=== PATIENT | male | born 1960 ===

== ENCOUNTER 2016-07-02 04:40 | Inpatient (IN) | payer MEDICARE, BC ==
[2016-07-02 04:40] VITALS: BMI 31.0
[2016-07-02 05:07] LABS: BASO # 0.1 K/uL (0.0-0.2); BASO % 0.4 % (0.0-2.0); EOS # 0.4 K/uL (0.0-0.7); EOS % 2.6 % (0.0-4.0); HEMATOCRIT 43.1 % (35.0-51.0); LYMPH # 0.7 K/uL (1.0-4.3); LYMPH % 5.2 % (20.0-40.0); MEAN CELL VOLUME 77.3 fL (80.0-94.0); MEAN CORPUSCULAR HEMOGLOBIN 24.5 pg (27.0-31.0); MEAN CORPUSCULAR HGB CONC 31.7 g/dL (33.0-37.0); MEAN PLATELET VOLUME 8.5 fL (7.2-11.7); MONO % 6.7 % (0.0-10.0); PLATELET COUNT 187 K/uL (130-400); RED CELL DISTRIBUTION WIDTH 18.1 % (11.5-14.5); WHITE BLOOD COUNT 14.4 K/uL (4.8-10.8)
--- NOTE | 2016-07-02 05:17 | C.PDOC ---
History Of Present Illness Patient BIBA for SOB x 1-2 hours; on EMS arrival patient was in moderate distress, Pox in 80s, RR in 30s. He was given ASA 325mg, SL nitro x 3, Lasix IV , started on IV tridil in the field. He admits to some chest pressure as well. Patient denies cough, fever, abdominal pain, nausea/vomiting, palpitations. He has h/o DM, HTN, kidney transplant, formerly ESRD on HD. Time Seen by Provider: 07/02/16 04:49 Chief Complaint (Nursing): Respiratory Distress History Per: Patient, EMS History/Exam Limitations: clinical condition Onset/Duration Of Symptoms: Hrs Current Symptoms Are (Timing): Better Quality: Pressure Current Respiratory Medications: See Home Med List Severity: Moderate Associated Symptoms: denies: Fever, Chills Past Medical History Reviewed: Historical Data, Nursing Documentation, Vital Signs Vital Signs: Last Vital Signs Temp 97.8 F 07/04/16 15:00 Pulse 87 07/04/16 15:00 Resp 20 07/04/16 15:00 BP 154/86 H 07/04/16 15:00 Pulse Ox 96 07/04/16 15:00 - Medical History PMH: CAD, CHF, COPD, Diabetes, HTN, Hypercholesterolemia, Chronic Kidney Disease , Rheumatoid Arthritis Comment Only: End Stage Renal Disease (kidney transplant rt side) Surgical History: Appendectomy - [facility] Procedures CLOSURE SKIN & SUBCUTANEOUS NEC (03/13/14) DESTRUC-FOOT JT LES NEC (03/07/14) DETACHMENT AT RIGHT FOOT, PARTIAL 1ST RAY, OPEN APPROACH (03/08/15) EXCIS DEBRIDE OF WOUND, INFECT, OR BURN (03/17/14) EXCISION OF LEFT FOOT SKIN, EXTERNAL APPROACH (10/13/15) HEMODIALYSIS (02/28/13) INJECT ANTIBIOTIC (03/13/14) INSERTION OF INFUSION DEV INTO R BASILIC VEIN, PERC APPROACH (10/13/15) OCCUPATIONAL THERAPY (03/13/14) OTHER SKIN & SUBQ I D (01/02/13) PHYSICAL THERAPY NEC (03/13/14) REPLACE L FOOT SKIN W NONAUT SUB, FULL THICK, CARPENTER'S ASSISTANT (10/13/15) TOE AMPUTATION (03/07/14) Family History: States: No Known Family Hx - Social History Hx Tobacco Use: No Hx Alcohol Use: No Hx Substance Use: No - Immunization History Hx Tetanus Toxoid Vaccination: Yes Hx Influenza Vaccination: No Hx Pneumococcal Vaccination: No Review Of Systems Except As Marked, All Systems Reviewed And Found Negative. Constitutional: Negative for: Fever, Chills Cardiovascular: Positive for: Chest Pain, Edema. Negative for: Palpitations Respiratory: Positive for: Shortness of Breath, SOB with Excertion Gastrointestinal: Negative for: Nausea, Vomiting, Abdominal Pain Physical Exam - Physical Exam Appears: Non-toxic, In Acute Distress (in mild respiratory distress) Skin: Normal Color, Warm, Dry Eye(s): bilateral: Normal Inspection Oral Mucosa: Moist Neck: Normal, Normal ROM, Other ((+) JVD) Cardiovascular: Rhythm Regular (tachycardic ) Respiratory: Accessory Muscle Use (mild), Rales (at bases B/L), No Rhonchi, No Wheezing Gastrointestinal/Abdominal: Normal Exam, Bowel Sounds, Soft, No Tenderness Extremity: Normal ROM, Pedal Edema (+2 pitting edema B/L LEs), No Calf Tenderness Pulses: Left Dorsalis Pedis: Normal, Right Dorsalis Pedis: Normal Neurological/Psych: Oriented x3 ED Course And Treatment - Laboratory Results Result Diagrams: 07/04/16 06:19 07/04/16 06:19 ECG: Interpreted By Me, Viewed By Me (sinus tachycardia 133 bpm, left axis deviation, no acute ST/T wave changes) ECG Interpretation: Abnormal O2 Sat by Pulse Oximetry: 98 (RA) Pulse Ox Interpretation: Normal Progress Note: Blood work, CXR, EKG ordered and reviewed. Tridil continued. PMD Dr. Herrera no longer admits to [facility] - will admit to medical service Dr. Del Valle. Dr. Duggan is nephrology consult. 6:00am- Patient significantly improved, will discontinue tridil drip. Reevaluation Time: 05:25 Reassessment Condition: Improved (Patient respiratory status improved, he has no accessory muslce use. BP 102/60 - will titrate tridil down to 30mcg.) - Physician Consult Information Physician Contacted: Ashia Del Valle Outcome Of Conversation: Discussed patient with Dr. Del Valle, agrees with admission. Critical Care Time - Critical Care Note Total Time (in mins): 40 Documented critical care: time excludes all time spent performing seperately billable procedures. Disposition - Disposition Disposition: HOSPITALIZED Disposition Time: 05:58 Condition: FAIR - Clinical Impression Clinical Impression: Dyspnea, Congestive heart failure, Acute renal failure, Elevated troponin level Decision To Admit - Pt Status Changed To: Hospital Disposition Of: Inpatient - Admit Certification Admit to Inpatient:: After my assessment, the patient will require hospitalization for at least two midnights. This is because of the severity of symptoms shown, intensity of services needed, and/or the medical risk in this patient being treated as an outpatient. - InPatient: Physician Admission Certification: I certify that this patient requires 2 or more midnights of care for the following reason:: see notes - . Bed Request Type: Telemetry Admitting Physician: Ashia Del Valle Patient Diagnosis: Dyspnea, Congestive heart failure, Acute renal failure, Elevated troponin
[2016-07-02 05:19] LABS: POTASSIUM 4.2 mmol/L (3.6-5.2)
[2016-07-02] MEDS ORDERED: Nitroglycerin 50mg in D5W 50 MG/250 ML BOTTLE IV STA (05:20)
[2016-07-02 05:21] LABS: ALB/GLOB RATIO 0.8 (1.0-2.1); BILIRUBIN,TOTAL 0.5 mg/dL (0.2-1.3); CALCIUM 9.7 mg/dl (8.6-10.4); TOTAL PROTEIN 7.3 g/dL (6.3-8.3)
[2016-07-02 05:37] LABS: TROPONIN I 0.315 ng/mL (0.00-0.120)
[2016-07-02 05:50] LABS: EOSINOPHIL 2 % (0-4); NEUTROPHIL 83 % (50-75); TOTAL CELLS COUNTED 100
[2016-07-02] MEDS ORDERED: Oxycodone/Acetaminophen 5/325 mg Tab ONE (06:46)
[2016-07-02] MEDS: Oxycodone/Acetaminophen 5/325 mg Tab PO PRN ×2 (06:48→20:33)
[2016-07-02] MEDS ORDERED: CHOLECALCIFEROL 1.25 MG PO SCH (07:00)
[2016-07-02] MEDS: GlipiZIDE 10 mg SR Tab PO SCH ×2 (08:13→16:59)
[2016-07-02] MEDS: (Novolog) Insulin Aspart, Recombinant 100 u/ml 10 ml vial SC SCH ×5 (08:13→16:59)
[2016-07-02] MEDS ORDERED: GlipiZIDE 10 mg SR Tab PO SCH (10:00)
[2016-07-02] MEDS ORDERED: INSULIN ASPART 30 UNIT SQ SCH (10:00)
[2016-07-02] MEDS: Pantoprazole 40 mg EC Tab PO SCH (10:35)
[2016-07-02] MEDS ORDERED: Ergocalciferol 50,000 Intl Units Cap PO SCH (10:45)
--- NOTE | 2016-07-02 11:48 | RAD ---
PROCEDURE: CHEST RADIOGRAPH, 1 VIEW. Portable study 05:00 HISTORY: SOB COMPARISON: 10/15/2015. FINDINGS: LUNGS: Right lower lobe infiltrate/ air bronchograms a new finding compared to the prior study. PLEURA: No pneumothorax or pleural fluid seen. CARDIOVASCULAR: Cardiomegaly. No evidence of acute, significant cardiovascular disease. OSSEOUS STRUCTURES: No significant abnormalities. VISUALIZED UPPER ABDOMEN: Normal. OTHER FINDINGS: None. IMPRESSION: Right lower lobe infiltrate suspicious for acute pneumonia. Concordant results with the preliminary interpretation rendered by the emergency department physician procedure.
[2016-07-02] MEDS: Moxifloxacin IV 400mg/250ml NS 400 MG/250 ML BAG IVPB SCH (17:00)
--- NOTE | 2016-07-02 21:50 | CP.PCM.CON ---
History of Present Illness - History of Present Illness History of Present Illness: I was asked to see patient by Dr. Blake. Patient is a 56 year old male with PMH HTN, DM, renal transplant who presents with dyspnea. The patient states symptoms began one day prior to admission. He developed progressive dyspnea and orthopnea. The patient also developed chest pressure. He was admitted for [facility]. Pro BNP and troponin are elevated Review of Systems - Constitutional Constitutional: absent: As Per HPI, Anorexia, Chills, Daytime Sleepiness, Excessive Sweating, Fatigue, Fever, Frequent Falls, Headache, Increased Appetite , Lethargy, Malaise, Night Sweats, Snoring, Sleep Apnea, Weight Gain, Weight Loss, Weakness, Other - EENT Eyes: absent: As Per HPI, Blind Spots, Blurred Vision, Change in Vision, Decreased Night Vision, Diplopia, Discharge, Dry Eye, Exophthalmos, Floaters, Irritation, Itchy Eyes, Loss of Peripheral Vision, Pain, Photophobia, Requires Corrective Lenses, Sees Flashes, Spots in Vision, Tunnel Vision, Other Visual Disturbances, Loss of Vision, Other Ears: absent: As Per HPI, Decreased Hearing, Ear Discharge, Ear Pain, Tinnitus, Abnormal Hearing, Disequilibrium, Dizziness, Other Nose/Mouth/Throat: absent: As Per HPI, Epistaxis, Nasal Congestion, Nasal Discharge, Nasal Obstruction, Nasal Trauma, Nose Pain, Post Nasal Drip, Sinus Pain, Sinus Pressure, Bleeding Gums, Change in Voice, Dental Pain, Dry Mouth, Dysphagia, Halitosis, Hoarsness, Lip Swelling, Mouth Lesions, Mouth Pain, Odynophagia, Sore Throat, Throat Swelling, Tongue Swelling, Facial Pain, Neck Pain, Neck Mass, Other - Cardiovascular Cardiovascular: Chest Pain, Dyspnea - Respiratory Respiratory: Dyspnea - Gastrointestinal Gastrointestinal: absent: As Per HPI, Abdominal Pain, Belching, Bloating, Change in Bowel Habits, Change in Stool Character, Coffee Ground Emesis, Constipation, Cramping, Diarrhea, Dyspepsia, Dysphagia, Early Satiety, Excessive Flatus, Fecal Incontinence, Heartburn, Hematemesis, Hematochezia, Loose Stools, Melena, Nausea, Odynophagia, Temesmus, Vomiting, Other - Genitourinary Genitourinary: absent: As Per HPI, Change in Urinary Stream, Difficulty Urinating, Dysuria, Flank Pain, Hematuria, Pyuria, Nocturia, Urinary Incontinence, Urinary Frequency, Urinary Hesitance, Urinary Urgency, Voiding Freq/Small Amts, Freq UTI, Hx Renal/Bladder Calculi, Hx /Renal Surgery, Bladder Distension, Other - Musculoskeletal Musculoskeletal: absent: As Per HPI, Abnormal Gait, Arthralgias, Atrophy, Back Pain, Deformity, Joint Swelling, Limited Range of Motion, Loss of Height, Muscle Cramps, Muscle Weakness, Myalgias, Neck Pain, Numbness, Radiating Pain into Limb, Stiffness, Tingling, Other - Integumentary Integumentary: absent: As Per HPI, Acne, Alopecia, Bleeding Lesions, Change in Hair, Change in Nails, Change in Pigmentation, Changing Lesions, Dry Skin, Erythema, Furuncle, Hirsutism, Lesions, New Lesions, Non-Healing Lesions, Photosensitivity, Pruritus, Rash, Skin Pain, Skin Ulcer, Sores, Striae, Swelling , Unusual Bruising, Wounds, Jaundice, Other - Neurological Neurological: absent: As Per HPI, Abnormal Gait, Abnormal Hearing, Abnormal Movements, Abnormal Speech, Behavioral Changes, Burning Sensations, Confusion, Convulsions, Disequilibrium, Dizziness, Numbness, Focal Weakness, Frequent Falls , Headaches, Lack of Coordination, Loss of Vision, Memory Loss, Paresthesias, Radicular Pain, Restless Legs, Sensory Deficit, Syncope, Tingling, Tremor, Vertigo, Weakness, Other Visual Disturbances, Other - Psychiatric Psychiatric: absent: As Per HPI, Abnormal Sleep Pattern, Anhedonia, Anxiety, Auditory Hallucinations, Behavioral Changes, Change in Appetite, Change in Libido, Confusion, Depression, Difficulty Concentrating, Hallucinations, Homicidal Ideation, Hopelessness, Irritability, Memory Loss, Mood Swings, Panic Attacks, Paranoia, Suicidal Ideation, Visual Hallucinations, Tactile Hallucinations, Other - Endocrine Endocrine: absent: As Per HPI, Change in Body Appearance, Change in Libido, Cold Intolorance, Deepening of Voice, Excessive Sweating, Fatigue, Flushing, Heat Intolorance, Increase in Ring/Shoe/Hat Size, Palpitations, Polydipsia, Polyphagia, Polyuria, Other - Hematologic/Lymphatic Hematologic: absent: As Per HPI, Easy Bleeding, Easy Bruising, Lymphadenopathy, Other Past Patient History - Infectious Disease Hx of Infectious Diseases: None - Past Medical History & Family History Past Medical History?: Yes - Past Social History Smoking Status: Former Smoker - CARDIAC Hx Congestive Heart Failure: Yes Hx Heart Murmur: Yes Hx Hypercholesterolemia: Yes Hx Hypertension: Yes - PULMONARY Hx Chronic Obstructive Pulmonary Disease (COPD): Yes - NEUROLOGICAL Hx Neurological Disorder: No - HEENT Hx HEENT Problems: No - RENAL Hx Chronic Kidney Disease: Yes Hx Dialysis: Yes Type of Dialysis Access: lt avf Other/Comment: kidney transplant 3 years ago - ENDOCRINE/METABOLIC Hx Diabetes Mellitus Type 2: Yes - HEMATOLOGICAL/ONCOLOGICAL Hx Blood Disorders: No - INTEGUMENTARY Hx Dermatological Problems: Yes Other/Comment: RT FOOT DIABETIC FOOT ULCER - MUSCULOSKELETAL/RHEUMATOLOGICAL Hx Falls: No Hx Rheumatoid Arthritis: Yes - GASTROINTESTINAL Hx Gastrointestinal Disorders: Yes Other/Comment: CHRONIC LOOSE STOOLS, HX COLON RESECTION AND ANASTAMOSIS, HX COLOSTOMY\. 65% of colon lost, - GENITOURINARY/GYNECOLOGICAL Hx Genitourinary Disorders: No - PSYCHIATRIC Hx Substance Use: No - SURGICAL HISTORY Hx Appendectomy: Yes - ANESTHESIA Hx Anesthesia: Yes Hx Anesthesia Reactions: No Hx Malignant Hyperthermia: No Has any member of the family had a problem w/ anesthesia?: No Meds Allergies/Adverse Reactions: Allergies Allergy/AdvReac Type Severity Reaction Status Date / Time morphine Allergy Intermediate RASH Verified 07/02/16 04:57 sweet potato Allergy Verified 07/02/16 04:57 Carlso greens Allergy ANAPHYLAXIS Uncoded 07/02/16 04:57 - Medications Medications: Current Medications Amlodipine Besylate (Norvasc) 5 mg PO HS [facility] Aspirin (Ecotrin) 81 mg PO DAILY [facility] Last Admin: 07/02/16 10:34 Dose: 81 mg Cinacalcet (Sensipar) 30 mg PO DAILY [facility] Last Admin: 07/02/16 10:35 Dose: 30 mg Cyclobenzaprine HCl (Flexeril) 5 mg PO HS [facility] Ergocalciferol (Drisdol 50,000 Intl Units Cap) 1 cap PO Q7D [facility] Last Admin: 07/02/16 12:41 Dose: 1 cap Furosemide (Lasix) 40 mg PO BID [facility] Last Admin: 07/02/16 17:00 Dose: 40 mg Gabapentin (Neurontin) 100 mg PO TID [facility] Last Admin: 07/02/16 17:00 Dose: 100 mg Glipizide (Glucotrol Xl) 10 mg PO BIDAC [facility] Last Admin: 07/02/16 16:59 Dose: 10 mg Moxifloxacin HCl (Avelox Iv 400mg/250ml Ns) 400 mg in 250 mls @ 167 mls/hr IVPB Q24H [facility] Last Admin: 07/02/16 17:00 Dose: 167 mls/hr Insulin Aspart (Novolog) 0 unit SC ACHS [facility] PRN Reason: Protocol Last Admin: 07/02/16 16:58 Dose: 1 unit Insulin Aspart (Novolog) 30 unit SC AC [facility] Last Admin: 07/02/16 16:59 Dose: 30 unit Insulin Glargine (Lantus) 55 unit SC HS [facility] Mycophenolate Mofetil (Cellcept) 500 mg PO BID [facility] Last Admin: 07/02/16 17:00 Dose: 500 mg Oxycodone/Acetaminophen (Percocet 5/325 Mg Tab) 1 tab PO Q6 PRN PRN Reason: Pain, severe (8-10) Stop: 07/05/16 06:47 Last Admin: 07/02/16 20:33 Dose: 1 tab Pantoprazole Sodium (Protonix Ec Tab) 40 mg PO DAILY [facility] Last Admin: 07/02/16 10:35 Dose: 40 mg Prednisone (Prednisone Tab) 5 mg PO DAILY [facility] Last Admin: 07/02/16 10:35 Dose: 5 mg Rosuvastatin Calcium (Crestor) 10 mg PO HS [facility] Sitagliptin Phosphate (Januvia) 50 mg PO DAILY [facility] Last Admin: 07/02/16 10:34 Dose: 50 mg Tacrolimus (Prograf Cap) 1 mg PO Q12 [facility] Last Admin: 07/02/16 11:50 Dose: 1 mg Physical Exam - Constitutional Appears: Non-toxic - Head Exam Head Exam: NORMAL INSPECTION - Eye Exam Eye Exam: Normal appearance - ENT Exam ENT Exam: Mucous Membranes Moist - Neck Exam Neck exam: Positive for: Full Rom - Respiratory Exam Respiratory Exam: Decreased Breath Sounds - Cardiovascular Exam Cardiovascular Exam: REGULAR RHYTHM, Systolic Murmur - GI/Abdominal Exam GI & Abdominal Exam: Normal Bowel Sounds - Rectal Exam Rectal Exam: Deferred - Extremities Exam Extremities exam: Positive for: pedal edema - Back Exam Back exam: NORMAL INSPECTION - Neurological Exam Neurological exam: Alert, Oriented x3 - Psychiatric Exam Psychiatric exam: Normal Affect - Skin Skin Exam: Normal Color Results - Vital Signs Recent Vital Signs: Last Vital Signs Temp 98.1 F 07/02/16 15:32 Pulse 93 H 07/02/16 15:32 Resp 20 07/02/16 15:32 BP 133/82 07/02/16 20:33 Pulse Ox 97 07/02/16 15:32 - Labs Result Diagrams: 07/02/16 05:04 07/02/16 05:04 Labs: Laboratory Results - last 24 hr 07/02/16 07/02/16 07/02/16 07:04 11:57 13:35 POC Glucose (mg/dL) 246 H 264 H Total Creatine Kinase 65 CK-MB (Mass) 2.36 Troponin I, Quant 0.3600 H* 07/02/16 16:20 POC Glucose (mg/dL) 192 H Total Creatine Kinase CK-MB (Mass) Troponin I, Quant - EKG Data EKG Interpreted by: Myself EKG shows normal: Sinus rhythm Assessment & Plan (1) NSTEMI (non-ST elevated myocardial infarction) Assessment and Plan: symptoms may be due to underlying CAD. Recommend echocardiogram. recommend cardiac catheterization to assess for CAD. will need evalaution by renal givne trasnplanted kidney and renal insufficiency. Status: Acute (2) Congestive heart failure Assessment and Plan: unclear etiology, but may be due to valvular heart disease. recommend echocardiogram Status: Acute (3) Aortic stenosis Assessment and Plan: will assess with echocardiogram Status: Chronic Priority: Medium (4) Hypertension Assessment and Plan: blood pressure control Status: Chronic Priority: Medium
[2016-07-02] MEDS: (Lantus) Insulin Glargine, Recombinant SC SCH (22:39)
--- NOTE | 2016-07-03 07:19 | HP ---
The patient is a 56-year-old male, history of renal transplant, hypertension, valvular heart disease. Admitted to the hospital with a chief complaint of weakness, fatigue, tiredness. The patient came to the ER, found to have pulmonary edema, elevated blood pressure. The patient increasing shor tness of breath night. Symptoms suggesting sleep apnea when described as being short of breath when he lies flat. The patient is obese. PHYSICAL EXAMINATION: GENERAL: The patient is awake, alert, oriented. VITAL SIGNS: Temperature 98, pulse 90. HEENT: Within normal limits. CHEST: Decreased air entry. HEART: Tachycardic. ABDOMEN: Soft. EXTREMITIES: No edema. The patient suffers from congestive heart failure, hypertension, renal insufficiency status post leonard l transplant, rule out sleep apnea, morbid obesity. The patient will get bedrest, diuresis, cardiolo gy evaluation. Ashia Will MD cc: [id number] TT: 07/02/2016 16:12:30 en
[2016-07-03] MEDS: GlipiZIDE 10 mg SR Tab PO SCH ×2 (08:30→17:59)
[2016-07-03] MEDS: (Novolog) Insulin Aspart, Recombinant 100 u/ml 10 ml vial SC SCH ×7 (08:51→22:09)
[2016-07-03] MEDS: Pantoprazole 40 mg EC Tab PO SCH (10:02)
--- NOTE | 2016-07-03 11:39 | CP.PCM.PN ---
Subjective - Date & Time of Evaluation Date of Evaluation: 07/03/16 Time of Evaluation: 07:35 - Subjective Subjective: Medicine Note- Dr. Blake's service Patient was seen and examined at bedside. Patient reports he is feeling a lot better than when he first came in. He denies any dyspnea, chest pain. Patient understands he may need a cardiac cath, but due to his kidney transplant and elevated BUN, we will need clearance from nephrology. No events overnight, per nursing. Objective - Vital Signs/Intake and Output Vital Signs (last 24 hours): Temp Pulse Resp BP Pulse Ox 97.6 F 87 18 144/84 98 07/03/16 08:37 07/03/16 09:57 07/03/16 08:37 07/03/16 10:00 07/03/16 08:37 Intake and Output: 07/03/16 07/03/16 06:59 18:59 Intake Total 590 Balance 590 - Medications Medications: Current Medications Amlodipine Besylate (Norvasc) 5 mg PO HS [facility] Last Admin: 07/02/16 22:39 Dose: 5 mg Aspirin (Ecotrin) 81 mg PO DAILY [facility] Last Admin: 07/03/16 10:00 Dose: 81 mg Cinacalcet (Sensipar) 30 mg PO DAILY [facility] Last Admin: 07/03/16 09:59 Dose: 30 mg Cyclobenzaprine HCl (Flexeril) 5 mg PO HS [facility] Last Admin: 07/02/16 22:39 Dose: 5 mg Ergocalciferol (Drisdol 50,000 Intl Units Cap) 1 cap PO Q7D [facility] Last Admin: 07/02/16 12:41 Dose: 1 cap Furosemide (Lasix) 40 mg PO BID [facility] Last Admin: 07/03/16 10:00 Dose: 40 mg Gabapentin (Neurontin) 100 mg PO TID [facility] Last Admin: 07/03/16 10:00 Dose: 100 mg Glipizide (Glucotrol Xl) 10 mg PO BIDAC [facility] Last Admin: 07/03/16 08:30 Dose: Not Given Moxifloxacin HCl (Avelox Iv 400mg/250ml Ns) 400 mg in 250 mls @ 167 mls/hr IVPB Q24H [facility] Last Admin: 07/02/16 17:00 Dose: 167 mls/hr Insulin Aspart (Novolog) 0 unit SC ACHS [facility] PRN Reason: Protocol Last Admin: 07/03/16 08:53 Dose: 3 unit Insulin Aspart (Novolog) 30 unit SC AC [facility] Last Admin: 07/03/16 08:51 Dose: 30 unit Insulin Glargine (Lantus) 55 unit SC HS [facility] Last Admin: 07/02/16 22:39 Dose: 55 units Mycophenolate Mofetil (Cellcept) 500 mg PO BID [facility] Last Admin: 07/03/16 09:59 Dose: 500 mg Oxycodone/Acetaminophen (Percocet 5/325 Mg Tab) 1 tab PO Q6 PRN PRN Reason: Pain, severe (8-10) Stop: 07/05/16 06:47 Last Admin: 07/02/16 20:33 Dose: 1 tab Pantoprazole Sodium (Protonix Ec Tab) 40 mg PO DAILY [facility] Last Admin: 07/03/16 10:02 Dose: 40 mg Prednisone (Prednisone Tab) 5 mg PO DAILY [facility] Last Admin: 07/03/16 10:00 Dose: 5 mg Rosuvastatin Calcium (Crestor) 10 mg PO [facility] Last Admin: 07/02/16 22:39 Dose: 10 mg Sitagliptin Phosphate (Januvia) 50 mg PO DAILY [facility] Last Admin: 07/03/16 10:00 Dose: 50 mg Tacrolimus (Prograf Cap) 1 mg PO Q12 [facility] Last Admin: 07/03/16 09:59 Dose: 1 mg - Labs Labs: PT 11.3 SECONDS (9.7-12.2) 07/02/16 05:04 INR 1.0 07/02/16 05:04 APTT 30 SECONDS (21-34) 07/02/16 05:04 - Constitutional Appears: Non-toxic, No Acute Distress - Head Exam Head Exam: ATRAUMATIC, NORMAL INSPECTION, NORMOCEPHALIC - Eye Exam Pupil Exam: NORMAL ACCOMODATION - ENT Exam ENT Exam: Mucous Membranes Moist - Respiratory Exam Respiratory Exam: Clear to Ausculation Bilateral, NORMAL BREATHING PATTERN. absent: Prolonged Expiratory Phase, Rales, Rhonchi, Wheezes - Cardiovascular Exam Cardiovascular Exam: REGULAR RHYTHM, Murmur - GI/Abdominal Exam GI & Abdominal Exam: Soft, Normal Bowel Sounds. absent: Tenderness, Diminished Bowel Sounds, Hernia, Hypoactive Bowel Sounds - Neurological Exam Neurological Exam: Alert, Awake, Oriented x3 - Psychiatric Exam Psychiatric exam: Normal Affect, Normal Mood - Skin Skin Exam: Dry, Intact, Normal Color, Warm Assessment and Plan - Assessment and Plan (Free Text) Assessment: NSTEMI Consult Cardiology- Dr. Lassiter- recommends cardiac cath, however, will need approval from nephrology before proceeding. NPO after lunch today ROMIs positive- 0.3150, 0.3600, 0.2690 Asa 81mg PO Daily Continue Lasix 40mg PO BID f/u 2D Echo Diabetes Continue Lantus 55U SC HS Continue Novolog 30U SC AC Continue RISS Asa 81mg PO Daily Glipizide 10mg PO BIDAC Januvia 50mg PO Daily Neurontin 100mg PO TID Htn Continue Norvasc 5mg PO HS Hx of Renal transplant Consult- Nephro- Dr. Duggan Continue Prednisone 5mg PO Daily Tacrolimus 1mg Q12h Cellcept 500mg PO BID Sensipar 30mg PO Daily Prophylactic Measure Protonix 40mg PO Daily SCDs contraindicated due to bilateral LE edema Contraindicated for VTE therapy- pre op
--- NOTE | 2016-07-03 12:42 | CARD ---
APPROVED REPORT EXAM: Two-dimensional and M-mode echocardiogram with Doppler and color Doppler. Other Information Quality : GoodRhythm : INDICATION Dyspnea Chest Pain RENAL TRANSPLANT,ELEVATED TROPONIN RISK FACTORS Hypertension Obesity Diabetes 2D DIMENSIONS LVOT Diameter2.2 (1.8-2.4cm) M-Mode DIMENSIONS RVDd2.26 (2.1-3.2cm)Left Atrium (MM)5.27 (2.5-4.0cm) IVSd1.48 (0.7-1.1cm)Aortic Root3.36 (2.2-3.7cm) LVDd5.82 (4.0-5.6cm)Aortic Cusp Exc.1.13 (1.5-2.0cm) PWd1.48 (0.7-1.1cm)FS (%) 27 % LVDs4.26 (2.0-3.8cm)LVEF (%)52 (>50%) Aortic Valve AoV Peak Kfxerhll994.1cm/sAoV VTI83.4cmAO Peak GR.61mmHg LVOT Peak Qdrjpoxq14.6cm/sLVOT VTI17.50cmAO Mean GR.39mmHg TERRI (VMAX)0.66ra6BSV (VTI)0.65ul9CM P 1/2 Etit312yl Mitral Valve E/A ratio0.0 TDI E/Lateral E'0.0E/Medial E'0.0 Tricuspid Valve TR Peak Uebsdwrp146cd/sTR Peak Gr.[id number] LEFT VENTRICLE The Left Ventricle is moderately dilated. There is mild to moderate concentric left ventricular hypertrophy. The systolic function is mildly impaired. There is normal LV segmental wall motion. RIGHT VENTRICLE The right ventricle is normal size. The right ventricular systolic function is normal. ATRIA The left atrium is moderately dilated. The right atrium size is normal. AORTIC VALVE The aortic valve is moderately to severely sclerotic. There is mild to moderate aortic regurgitation. There is severe valvular aortic stenosis. Calculated aortic valve area is 0.8 cm2 with maximum pressure gradient of 61 mmHg and mean pressure gradient of 38 mmHg. MITRAL VALVE The mitral valve is normal in structure. Mitral annular calcification is mild. Mitral regurgitation is mild. TRICUSPID VALVE The tricuspid valve is normal in structure. There is trace to mild tricuspid regurgitation. PULMONIC VALVE The pulmonary valve is normal in structure. GREAT VESSELS The aortic root is normal in size. The IVC is normal in size and collapses >50% with inspiration. PERICARDIAL EFFUSION There is no pericardial effusion. <Conclusion> There is severe calcific valvular aortic stenosis. Calculated aortic valve area is - 0.8 cm2 with maximum pressure gradient of 61 mmHg and mean pressure gradient of 38 mmHg. There is mild to moderate aortic regurgitation. There is mild to moderate concentric left ventricular hypertrophy. The systolic function is mildly impaired. The right ventricular systolic function is normal. Mitral regurgitation is mild. No pericardial effusion.
--- NOTE | 2016-07-03 12:46 | CP.PCM.CON ---
History of Present Illness - History of Present Illness History of Present Illness: Patient is a 56 year old male with PMH HTN, DM, renal transplant who presents with dyspnea. The patient states symptoms began one day prior to admission. He developed progressive dyspnea and orthopnea. The patient also developed chest pressure. He was admitted for [facility]. Pro BNP and troponin are elevated Renal Tranplant was donor; suffered delayed graft function, but renal function stable recently. No acute rejections Treated for mild CHF in ED. PMH: DONOR RENAL TRANSPLANT CKD 3 HTN COPD SEC HPT PVD- BILATERALLY, 1 TOE AMPUTATION DL DM 2 ISCHEMIC BOWEL-POST PARTIAL COLECTOMY TNIs ELEVATED, MILD CHF IN ED- TREATED PLANS FOR CARDIAC CATH NOTED CANNOT HYDRATE DUE TO CHF. LIKELY RELATED TO AORTIC STENOSIS NEED TO MONITOR RENAL FUNCTION CLOSELY Past Patient History - Infectious Disease Hx of Infectious Diseases: None - Past Medical History & Family History Past Medical History?: Yes - Past Social History Smoking Status: Former Smoker - CARDIAC Hx Congestive Heart Failure: Yes Hx Heart Murmur: Yes Hx Hypercholesterolemia: Yes Hx Hypertension: Yes - PULMONARY Hx Chronic Obstructive Pulmonary Disease (COPD): Yes - NEUROLOGICAL Hx Neurological Disorder: No - HEENT Hx HEENT Problems: No - RENAL Hx Chronic Kidney Disease: Yes Hx Dialysis: Yes Type of Dialysis Access: lt avf Other/Comment: kidney transplant 3 years ago - ENDOCRINE/METABOLIC Hx Diabetes Mellitus Type 2: Yes - HEMATOLOGICAL/ONCOLOGICAL Hx Blood Disorders: No - INTEGUMENTARY Hx Dermatological Problems: Yes Other/Comment: RT FOOT DIABETIC FOOT ULCER - MUSCULOSKELETAL/RHEUMATOLOGICAL Hx Falls: No Hx Rheumatoid Arthritis: Yes - GASTROINTESTINAL Hx Gastrointestinal Disorders: Yes Other/Comment: CHRONIC LOOSE STOOLS, HX COLON RESECTION AND ANASTAMOSIS, HX COLOSTOMY\. 65% of colon lost, - GENITOURINARY/GYNECOLOGICAL Hx Genitourinary Disorders: No - PSYCHIATRIC Hx Substance Use: No - SURGICAL HISTORY Hx Appendectomy: Yes - ANESTHESIA Hx Anesthesia: Yes Hx Anesthesia Reactions: No Hx Malignant Hyperthermia: No Has any member of the family had a problem w/ anesthesia?: No Meds Allergies/Adverse Reactions: Allergies Allergy/AdvReac Type Severity Reaction Status Date / Time morphine Allergy Intermediate RASH Verified 07/02/16 04:57 sweet potato Allergy Verified 07/02/16 04:57 Carlos greens Allergy ANAPHYLAXIS Uncoded 07/02/16 04:57 - Medications Medications: Current Medications Amlodipine Besylate (Norvasc) 5 mg PO [facility] Last Admin: 07/02/16 22:39 Dose: 5 mg Aspirin (Ecotrin) 81 mg PO DAILY [facility] Last Admin: 07/03/16 10:00 Dose: 81 mg Cinacalcet (Sensipar) 30 mg PO DAILY [facility] Last Admin: 07/03/16 09:59 Dose: 30 mg Cyclobenzaprine HCl (Flexeril) 5 mg PO [facility] Last Admin: 07/02/16 22:39 Dose: 5 mg Ergocalciferol (Drisdol 50,000 Intl Units Cap) 1 cap PO Q7D [facility] Last Admin: 07/02/16 12:41 Dose: 1 cap Furosemide (Lasix) 40 mg PO BID [facility] Last Admin: 07/03/16 10:00 Dose: 40 mg Gabapentin (Neurontin) 100 mg PO TID [facility] Last Admin: 07/03/16 10:00 Dose: 100 mg Glipizide (Glucotrol Xl) 10 mg PO BIDAC [facility] Last Admin: 07/03/16 08:30 Dose: Not Given Moxifloxacin HCl (Avelox Iv 400mg/250ml Ns) 400 mg in 250 mls @ 167 mls/hr IVPB Q24H [facility] Last Admin: 07/02/16 17:00 Dose: 167 mls/hr Insulin Aspart (Novolog) 0 unit SC [facility] PRN Reason: Protocol Last Admin: 07/03/16 08:53 Dose: 3 unit Insulin Aspart (Novolog) 30 unit SC AC [facility] Last Admin: 07/03/16 08:51 Dose: 30 unit Insulin Glargine (Lantus) 55 unit SC [facility] Last Admin: 07/02/16 22:39 Dose: 55 units Mycophenolate Mofetil (Cellcept) 500 mg PO BID [facility] Last Admin: 07/03/16 09:59 Dose: 500 mg Oxycodone/Acetaminophen (Percocet 5/325 Mg Tab) 1 tab PO Q6 PRN PRN Reason: Pain, severe (8-10) Stop: 07/05/16 06:47 Last Admin: 07/02/16 20:33 Dose: 1 tab Pantoprazole Sodium (Protonix Ec Tab) 40 mg PO DAILY [facility] Last Admin: 07/03/16 10:02 Dose: 40 mg Prednisone (Prednisone Tab) 5 mg PO DAILY [facility] Last Admin: 07/03/16 10:00 Dose: 5 mg Rosuvastatin Calcium (Crestor) 10 mg PO HS [facility] Last Admin: 07/02/16 22:39 Dose: 10 mg Sitagliptin Phosphate (Januvia) 50 mg PO DAILY [facility] Last Admin: 07/03/16 10:00 Dose: 50 mg Tacrolimus (Prograf Cap) 1 mg PO Q12 [facility] Last Admin: 07/03/16 09:59 Dose: 1 mg Results - Vital Signs Recent Vital Signs: Last Vital Signs Temp 97.6 F 07/03/16 08:37 Pulse 87 07/03/16 09:57 Resp 18 07/03/16 08:37 BP 144/84 07/03/16 10:00 Pulse Ox 98 07/03/16 08:37 - Labs Result Diagrams: 07/02/16 05:04 07/02/16 05:04 Labs: Laboratory Results - last 24 hr 07/02/16 07/02/16 07/02/16 13:35 16:20 22:06 POC Glucose (mg/dL) 192 H 233 H Total Creatine Kinase 65 CK-MB (Mass) 2.36 Troponin I, Quant 0.3600 H* 07/02/16 07/03/16 07/03/16 22:14 06:16 12:33 POC Glucose (mg/dL) 291 H 205 H Total Creatine Kinase 72 CK-MB (Mass) 2.65 Troponin I, Quant 0.2690 H*
--- NOTE | 2016-07-03 12:54 | CP.PCM.CON ---
History of Present Illness - History of Present Illness History of Present Illness: Patient is a 56 year old male with PMH HTN, DM, renal transplant who presents with dyspnea. The patient states symptoms began one day prior to admission. He developed progressive dyspnea and orthopnea. The patient also developed chest pressure. He was admitted for [facility]. Pro BNP and troponin are elevated Renal Tranplant was donor; suffered delayed graft function, but renal function stable recently. No acute rejections Treated for mild CHF in ED. PMH: DONOR RENAL TRANSPLANT CKD 3 HTN COPD SEC HPT PVD- BILATERALLY, 1 TOE AMPUTATION DL DM 2 ISCHEMIC BOWEL-POST PARTIAL COLECTOMY TNIs ELEVATED, MILD CHF IN ED- TREATED PLANS FOR CARDIAC CATH NOTED CANNOT HYDRATE DUE TO CHF. LIKELY RELATED TO AORTIC STENOSIS NEED TO MONITOR RENAL FUNCTION CLOSELY PSH: RENAL TP TOE AMPUTATION AVF PARTIAL COLECTOMY SOCIAL: FORMER SMOKER FORMER COCAINE USE NO ETOH FH:NON CONTRIBUATORY Review of Systems - Review of Systems All systems: reviewed and no additional remarkable complaints except - Cardiovascular Cardiovascular: Dyspnea on Exertion, Paroxysmal Nocturnal Dyspnea, Pedal Edema - Respiratory Respiratory: Dyspnea on Exertion Past Patient History - Infectious Disease Hx of Infectious Diseases: None - Past Medical History & Family History Past Medical History?: Yes - Past Social History Smoking Status: Former Smoker Alcohol: None Drugs: Cocaine Home Situation {Lives}: With Family - CARDIAC Hx Congestive Heart Failure: Yes Hx Heart Murmur: Yes Hx Hypercholesterolemia: Yes Hx Hypertension: Yes - PULMONARY Hx Chronic Obstructive Pulmonary Disease (COPD): Yes - NEUROLOGICAL Hx Neurological Disorder: No - HEENT Hx HEENT Problems: No - RENAL Hx Chronic Kidney Disease: Yes Hx Dialysis: Yes Type of Dialysis Access: lt avf Other/Comment: kidney transplant 3 years ago - ENDOCRINE/METABOLIC Hx Diabetes Mellitus Type 2: Yes - HEMATOLOGICAL/ONCOLOGICAL Hx Blood Disorders: No - INTEGUMENTARY Hx Dermatological Problems: Yes Other/Comment: RT FOOT DIABETIC FOOT ULCER - MUSCULOSKELETAL/RHEUMATOLOGICAL Hx Falls: No Hx Rheumatoid Arthritis: Yes - GASTROINTESTINAL Hx Gastrointestinal Disorders: Yes Other/Comment: CHRONIC LOOSE STOOLS, HX COLON RESECTION AND ANASTAMOSIS, HX COLOSTOMY\. 65% of colon lost, - GENITOURINARY/GYNECOLOGICAL Hx Genitourinary Disorders: No - PSYCHIATRIC Hx Substance Use: No - SURGICAL HISTORY Hx Appendectomy: Yes - ANESTHESIA Hx Anesthesia: Yes Hx Anesthesia Reactions: No Hx Malignant Hyperthermia: No Has any member of the family had a problem w/ anesthesia?: No Meds Allergies/Adverse Reactions: Allergies Allergy/AdvReac Type Severity Reaction Status Date / Time morphine Allergy Intermediate RASH Verified 07/02/16 04:57 sweet potato Allergy Verified 07/02/16 04:57 Carlos greens Allergy ANAPHYLAXIS Uncoded 07/02/16 04:57 - Medications Medications: Current Medications Amlodipine Besylate (Norvasc) 5 mg PO HS [facility] Last Admin: 07/02/16 22:39 Dose: 5 mg Aspirin (Ecotrin) 81 mg PO DAILY [facility] Last Admin: 07/03/16 10:00 Dose: 81 mg Cinacalcet (Sensipar) 30 mg PO DAILY [facility] Last Admin: 07/03/16 09:59 Dose: 30 mg Cyclobenzaprine HCl (Flexeril) 5 mg PO HS [facility] Last Admin: 07/02/16 22:39 Dose: 5 mg Ergocalciferol (Drisdol 50,000 Intl Units Cap) 1 cap PO Q7D [facility] Last Admin: 07/02/16 12:41 Dose: 1 cap Furosemide (Lasix) 40 mg PO BID [facility] Last Admin: 07/03/16 10:00 Dose: 40 mg Gabapentin (Neurontin) 100 mg PO TID [facility] Last Admin: 07/03/16 10:00 Dose: 100 mg Glipizide (Glucotrol Xl) 10 mg PO BIDAC [facility] Last Admin: 07/03/16 08:30 Dose: Not Given Moxifloxacin HCl (Avelox Iv 400mg/250ml Ns) 400 mg in 250 mls @ 167 mls/hr IVPB Q24H [facility] Last Admin: 07/02/16 17:00 Dose: 167 mls/hr Insulin Aspart (Novolog) 0 unit SC ACHS [facility] PRN Reason: Protocol Last Admin: 07/03/16 08:53 Dose: 3 unit Insulin Aspart (Novolog) 30 unit SC AC [facility] Last Admin: 07/03/16 08:51 Dose: 30 unit Insulin Glargine (Lantus) 55 unit SC HS [facility] Last Admin: 07/02/16 22:39 Dose: 55 units Mycophenolate Mofetil (Cellcept) 500 mg PO BID [facility] Last Admin: 07/03/16 09:59 Dose: 500 mg Oxycodone/Acetaminophen (Percocet 5/325 Mg Tab) 1 tab PO Q6 PRN PRN Reason: Pain, severe (8-10) Stop: 07/05/16 06:47 Last Admin: 07/02/16 20:33 Dose: 1 tab Pantoprazole Sodium (Protonix Ec Tab) 40 mg PO DAILY [facility] Last Admin: 07/03/16 10:02 Dose: 40 mg Prednisone (Prednisone Tab) 5 mg PO DAILY [facility] Last Admin: 07/03/16 10:00 Dose: 5 mg Rosuvastatin Calcium (Crestor) 10 mg PO HS [facility] Last Admin: 07/02/16 22:39 Dose: 10 mg Sitagliptin Phosphate (Januvia) 50 mg PO DAILY [facility] Last Admin: 07/03/16 10:00 Dose: 50 mg Tacrolimus (Prograf Cap) 1 mg PO Q12 [facility] Last Admin: 07/03/16 09:59 Dose: 1 mg Physical Exam - Constitutional Appears: Non-toxic, No Acute Distress - Head Exam Head Exam: ATRAUMATIC, NORMAL INSPECTION - Eye Exam Eye Exam: EOMI, Normal appearance - Neck Exam Neck exam: Positive for: Normal Inspection. Negative for: Tenderness - Respiratory Exam Respiratory Exam: Rales, NORMAL BREATHING PATTERN - Cardiovascular Exam Cardiovascular Exam: REGULAR RHYTHM, +S1, Systolic Murmur - GI/Abdominal Exam GI & Abdominal Exam: Soft. absent: Tenderness - Extremities Exam Extremities exam: Positive for: pedal edema. Negative for: tenderness - Neurological Exam Neurological exam: Alert, CN II-XII Intact, Oriented x3 - Skin Skin Exam: Dry, Warm Results - Vital Signs Recent Vital Signs: Last Vital Signs Temp 97.6 F 07/03/16 08:37 Pulse 87 07/03/16 09:57 Resp 18 07/03/16 08:37 BP 144/84 07/03/16 10:00 Pulse Ox 98 07/03/16 08:37 - Labs Result Diagrams: 07/02/16 05:04 07/02/16 05:04 Labs: Laboratory Results - last 24 hr 07/02/16 07/02/16 07/02/16 13:35 16:20 22:06 POC Glucose (mg/dL) 192 H 233 H Total Creatine Kinase 65 CK-MB (Mass) 2.36 Troponin I, Quant 0.3600 H* 07/02/16 07/03/16 07/03/16 22:14 06:16 12:33 POC Glucose (mg/dL) 291 H 205 H Total Creatine Kinase 72 CK-MB (Mass) 2.65 Troponin I, Quant 0.2690 H* Assessment & Plan (1) Type 2 diabetes mellitus with diabetic nephropathy Status: Acute (2) Dyspnea Status: Acute (3) NSTEMI (non-ST elevated myocardial infarction) Status: Acute (4) Aortic stenosis, residual Status: Acute (5) Chronic kidney disease, stage III (moderate) Status: Acute (6) Diabetes mellitus type 2 in obese Status: Acute (7) Toe amputation status Status: Acute (8) Transplant recipients Status: Acute (9) Aortic stenosis Status: Chronic Priority: Medium (10) History of kidney transplant Status: Chronic Priority: High (11) Hypertension Status: Chronic Priority: Medium - Assessment and Plan (Free Text) Plan: CANNOT HYDRATE DUE TO CHF SERIAL CHEMISTRIES CHECK FK FOR CARDIAC CATH
--- NOTE | 2016-07-03 16:11 | CP.PCM.CON ---
History of Present Illness - History of Present Illness History of Present Illness: Podiatry consult note- Dr. Sanchez 56 year old male with PMHx of HTN, DM, renal transplant, admitted to [facility] for dyspnea. Patient has history of chronic left foot ulceration with several digital amputations present. Patient states that his foot has been doing relatively well, denies any new lower extremity complaints. Patient states that he has been applying dressings to his foot at home. Patient denies n /v/f/c/sob at this time. He states that his dyspnea has improved today. Past Patient History - Infectious Disease Hx of Infectious Diseases: None - Past Medical History & Family History Past Medical History?: Yes - Past Social History Smoking Status: Former Smoker Alcohol: None Drugs: Cocaine Home Situation {Lives}: With Family - CARDIAC Hx Congestive Heart Failure: Yes Hx Heart Murmur: Yes Hx Hypercholesterolemia: Yes Hx Hypertension: Yes - PULMONARY Hx Chronic Obstructive Pulmonary Disease (COPD): Yes - NEUROLOGICAL Hx Neurological Disorder: No - HEENT Hx HEENT Problems: No - RENAL Hx Chronic Kidney Disease: Yes Hx Dialysis: Yes Type of Dialysis Access: lt avf Other/Comment: kidney transplant 3 years ago - ENDOCRINE/METABOLIC Hx Diabetes Mellitus Type 2: Yes - HEMATOLOGICAL/ONCOLOGICAL Hx Blood Disorders: No - INTEGUMENTARY Hx Dermatological Problems: Yes Other/Comment: RT FOOT DIABETIC FOOT ULCER - MUSCULOSKELETAL/RHEUMATOLOGICAL Hx Falls: No Hx Rheumatoid Arthritis: Yes - GASTROINTESTINAL Hx Gastrointestinal Disorders: Yes Other/Comment: CHRONIC LOOSE STOOLS, HX COLON RESECTION AND ANASTAMOSIS, HX COLOSTOMY\. 65% of colon lost, - GENITOURINARY/GYNECOLOGICAL Hx Genitourinary Disorders: No - PSYCHIATRIC Hx Substance Use: No - SURGICAL HISTORY Hx Appendectomy: Yes - ANESTHESIA Hx Anesthesia: Yes Hx Anesthesia Reactions: No Hx Malignant Hyperthermia: No Has any member of the family had a problem w/ anesthesia?: No Meds Allergies/Adverse Reactions: Allergies Allergy/AdvReac Type Severity Reaction Status Date / Time morphine Allergy Intermediate RASH Verified 07/02/16 04:57 sweet potato Allergy Verified 07/02/16 04:57 Carlos greens Allergy ANAPHYLAXIS Uncoded 07/02/16 04:57 - Medications Medications: Current Medications Amlodipine Besylate (Norvasc) 5 mg PO HS [facility] Last Admin: 07/02/16 22:39 Dose: 5 mg Aspirin (Ecotrin) 81 mg PO DAILY [facility] Last Admin: 07/03/16 10:00 Dose: 81 mg Cinacalcet (Sensipar) 30 mg PO DAILY [facility] Last Admin: 07/03/16 09:59 Dose: 30 mg Cyclobenzaprine HCl (Flexeril) 5 mg PO [facility] Last Admin: 07/02/16 22:39 Dose: 5 mg Ergocalciferol (Drisdol 50,000 Intl Units Cap) 1 cap PO Q7D [facility] Last Admin: 07/02/16 12:41 Dose: 1 cap Furosemide (Lasix) 40 mg PO BID [facility] Last Admin: 07/03/16 10:00 Dose: 40 mg Gabapentin (Neurontin) 100 mg PO TID [facility] Last Admin: 07/03/16 13:24 Dose: 100 mg Glipizide (Glucotrol Xl) 10 mg PO BIDAC [facility] Last Admin: 07/03/16 08:30 Dose: Not Given Moxifloxacin HCl (Avelox Iv 400mg/250ml Ns) 400 mg in 250 mls @ 167 mls/hr IVPB Q24H [facility] Last Admin: 07/02/16 17:00 Dose: 167 mls/hr Insulin Aspart (Novolog) 0 unit SC [facility] PRN Reason: Protocol Last Admin: 07/03/16 13:26 Dose: 2 unit Insulin Aspart (Novolog) 30 unit SC AC [facility] Last Admin: 07/03/16 13:19 Dose: Not Given Insulin Glargine (Lantus) 55 unit SC [facility] Last Admin: 07/02/16 22:39 Dose: 55 units Mycophenolate Mofetil (Cellcept) 500 mg PO BID [facility] Last Admin: 07/03/16 09:59 Dose: 500 mg Oxycodone/Acetaminophen (Percocet 5/325 Mg Tab) 1 tab PO Q6 PRN PRN Reason: Pain, severe (8-10) Stop: 07/05/16 06:47 Last Admin: 07/02/16 20:33 Dose: 1 tab Pantoprazole Sodium (Protonix Ec Tab) 40 mg PO DAILY [facility] Last Admin: 07/03/16 10:02 Dose: 40 mg Prednisone (Prednisone Tab) 5 mg PO DAILY [facility] Last Admin: 07/03/16 10:00 Dose: 5 mg Rosuvastatin Calcium (Crestor) 10 mg PO [facility] Last Admin: 07/02/16 22:39 Dose: 10 mg Sitagliptin Phosphate (Januvia) 50 mg PO DAILY [facility] Last Admin: 07/03/16 10:00 Dose: 50 mg Tacrolimus (Prograf Cap) 1 mg PO Q12 [facility] Last Admin: 07/03/16 09:59 Dose: 1 mg Physical Exam - Constitutional Appears: Well, Non-toxic, No Acute Distress - Neurological Exam Neurological exam: Oriented x3 - Psychiatric Exam Psychiatric exam: Normal Affect, Normal Mood - Additional Findings Additional findings: DERMATOLOGIC: Left lower extremity full thickness ulceration with hyperkeratotic borders, granular base, mild serous drainage, negative purulence, negative erythema, negative tracking. Surrounding skin is intact. VASCULAR: DP/PT pulses 1/4, [employer]<3 seconds, skin temperature is normal NEUROLOGIC: Protective sensation diminished ORTHOPEDIC: Multiple digital amputations left foot Results - Vital Signs Recent Vital Signs: Last Vital Signs Temp 98.1 F 07/03/16 14:50 Pulse 86 07/03/16 15:22 Resp 18 07/03/16 14:50 BP 142/88 07/03/16 15:22 Pulse Ox 99 07/03/16 14:50 - Labs Result Diagrams: 07/02/16 05:04 07/02/16 05:04 Labs: Laboratory Results - last 24 hr 07/02/16 07/02/16 07/02/16 16:20 22:06 22:14 POC Glucose (mg/dL) 192 H 233 H Total Creatine Kinase 72 CK-MB (Mass) 2.65 Troponin I, Quant 0.2690 H* 07/03/16 07/03/16 06:16 12:33 POC Glucose (mg/dL) 291 H 205 H Total Creatine Kinase CK-MB (Mass) Troponin I, Quant Assessment & Plan - Assessment and Plan (Free Text) Assessment: 56 year old male with left foot chronic ulceration Plan: Patient seen and evaluated at bedside with attending Dr. Sanchez Patients foot dressed with betadine DSD Foot is stable at this time, no intervention planned Podiatry will continue to follow while in house
[2016-07-03] MEDS ORDERED: Midazolam 2 MG/2 ML VIAL ONE ×2 (17:12→17:29)
[2016-07-03] MEDS ORDERED: Iodixanol 320 MG/ML 100 ML BOTTLE IV ONE (17:29)
--- NOTE | 2016-07-03 17:30 | CARD ---
APPROVED REPORT EKG Measurement Heart [id number] <Conclusion> Sinus tachycardia Otherwise normal ECG
[2016-07-03] MEDS ORDERED: Flumazenil 0.1 mg/ml Inj (5ml) IVP ONE ×2 (17:35→17:46)
[2016-07-03 17:50] LABS: URINE BILIRUBIN NEGATIVE (NEGATIVE); URINE COLOR Colorless (YELLOW); URINE GLUCOSE (UA) NORMAL (Normal); URINE KETONE NEGATIVE (NEGATIVE); URINE LEUKOCYTE ESTERASE NEG Leu/uL (Negative); URINE UROBILINOGEN NORMAL mg/dL (0.2-1.0); WBC URINE < 1 /hpf (0-5)
[2016-07-03 17:53] LABS: URINE BLOOD NEGATIVE (NEGATIVE)
[2016-07-03 17:54] LABS: URINE PROTEIN 1+ mg/dL (NEGATIVE)
[2016-07-03] MEDS: Moxifloxacin IV 400mg/250ml NS 400 MG/250 ML BAG IVPB SCH ×2 (17:59→19:00)
--- NOTE | 2016-07-03 18:08 | CP.PCM.PN ---
Subjective - Date & Time of Evaluation Date of Evaluation: 07/03/16 Time of Evaluation: 18:00 - Subjective Subjective: cardiac cath performed. no significant CAD. Severe aortic stenosis (by echocardiogram) Recommend: surgical evaluation for AVR. Objective - Vital Signs/Intake and Output Vital Signs (last 24 hours): Temp Pulse Resp BP Pulse Ox 98.1 F 86 18 142/88 99 07/03/16 14:50 07/03/16 15:22 07/03/16 14:50 07/03/16 15:22 07/03/16 14:50 Intake and Output: 07/03/16 07/03/16 06:59 18:59 Intake Total 590 400 Balance 590 400 - Medications Medications: Current Medications Amlodipine Besylate (Norvasc) 5 mg PO [facility] Last Admin: 07/02/16 22:39 Dose: 5 mg Aspirin (Ecotrin) 81 mg PO DAILY [facility] Last Admin: 07/03/16 10:00 Dose: 81 mg Cinacalcet (Sensipar) 30 mg PO DAILY [facility] Last Admin: 07/03/16 09:59 Dose: 30 mg Cyclobenzaprine HCl (Flexeril) 5 mg PO HS [facility] Last Admin: 07/02/16 22:39 Dose: 5 mg Ergocalciferol (Drisdol 50,000 Intl Units Cap) 1 cap PO Q7D [facility] Last Admin: 07/02/16 12:41 Dose: 1 cap Furosemide (Lasix) 40 mg PO BID [facility] Last Admin: 07/03/16 10:00 Dose: 40 mg Gabapentin (Neurontin) 100 mg PO TID [facility] Last Admin: 07/03/16 13:24 Dose: 100 mg Glipizide (Glucotrol Xl) 10 mg PO BIDAC [facility] Last Admin: 07/03/16 17:59 Dose: Not Given Moxifloxacin HCl (Avelox Iv 400mg/250ml Ns) 400 mg in 250 mls @ 167 mls/hr IVPB Q24H [facility] Last Admin: 07/03/16 17:59 Dose: Not Given Insulin Aspart (Novolog) 0 unit SC ACHS [facility] PRN Reason: Protocol Last Admin: 07/03/16 18:00 Dose: Not Given Insulin Aspart (Novolog) 30 unit SC AC [facility] Last Admin: 07/03/16 18:00 Dose: Not Given Insulin Glargine (Lantus) 55 unit SC HS [facility] Last Admin: 07/02/16 22:39 Dose: 55 units Mycophenolate Mofetil (Cellcept) 500 mg PO BID [facility] Last Admin: 07/03/16 09:59 Dose: 500 mg Oxycodone/Acetaminophen (Percocet 5/325 Mg Tab) 1 tab PO Q6 PRN PRN Reason: Pain, severe (8-10) Stop: 07/05/16 06:47 Last Admin: 07/02/16 20:33 Dose: 1 tab Pantoprazole Sodium (Protonix Ec Tab) 40 mg PO DAILY [facility] Last Admin: 07/03/16 10:02 Dose: 40 mg Prednisone (Prednisone Tab) 5 mg PO DAILY [facility] Last Admin: 07/03/16 10:00 Dose: 5 mg Rosuvastatin Calcium (Crestor) 10 mg PO HS [facility] Last Admin: 07/02/16 22:39 Dose: 10 mg Sitagliptin Phosphate (Januvia) 50 mg PO DAILY [facility] Last Admin: 07/03/16 10:00 Dose: 50 mg Tacrolimus (Prograf Cap) 1 mg PO Q12 [facility] Last Admin: 07/03/16 09:59 Dose: 1 mg - Labs Labs: PT 11.3 SECONDS (9.7-12.2) 07/02/16 05:04 INR 1.0 07/02/16 05:04 APTT 30 SECONDS (21-34) 07/02/16 05:04 Assessment and Plan (1) NSTEMI (non-ST elevated myocardial infarction) Status: Acute (2) Congestive heart failure Status: Acute (3) Aortic stenosis Status: Chronic (4) Hypertension Status: Chronic
[2016-07-03] MEDS ORDERED: Sodium Chloride 0.9% 500 ML IV SCH (18:09)
[2016-07-03 19:01] VITALS: RESP 20
--- NOTE | 2016-07-03 20:21 | CARDCATH ---
PROCEDURE DATE: 07/03/2016 PROCEDURE PERFORMED: Left heart catheterization, coronary angiography, left ventriculography. INDICATIONS: Severe aortic stenosis with decompensated heart failure, non-ST segment elevation myoca rdial infarction. REFERRING PHYSICIANS: Dr. Ashia Will and Dr. Jorge L Antonio. HISTORY: The patient is a 56-year-old male with a past medical history of hypertension, renal transp lantation, hypercholesterolemia who presents with dyspnea. The patient had an elevated proBNP and a non-ST segment elevation myocardial infarction. He was found to have severe aortic stenosis by echoc ardiogram. The patient was referred for catheterization. DESCRIPTION OF PROCEDURE: After obtaining informed consent, the patient was prepped and draped in th e usual sterile fashion. The left groin was anesthetized with 2% lidocaine solution. Coronary angio graphy and left ventriculography were then performed. All catheters were then removed. Manual press ure was applied to achieve hemostasis. CORONARIES: LEFT MAIN: Normal. LEFT ANTERIOR DESCENDING ARTERY: Normal. The first diagonal branch has a 40% ostial stenosis. LEFT CIRCUMFLEX ARTERY: Mild eccentric atherosclerotic plaque. RIGHT CORONARY ARTERY: Arises from the right sinus of Valsalva. There is a right dominant circulati on. Minor luminal irregularities. CONCLUSIONS: 1. No angiographic evidence of significant coronary artery disease. 2. Severe aortic stenosis (by echocardiogram). Mild left ventricular systolic dysfunction (by echoc ardiogram). PLAN: The patient will need aortic valve replacement. This has been discussed with the patient in d etail. He will discuss with his family. Disha Lassiter MD cc:Ashia Will MD; Jorge L Antonio MD 258 TT: 07/03/2016 20:21:16 dn
[2016-07-03] MEDS: (Lantus) Insulin Glargine, Recombinant SC SCH (22:03)
[2016-07-04 06:27] LABS: BASO % 0.6 % (0.0-2.0); EOS # 0.4 K/uL (0.0-0.7); EOS % 5.5 % (0.0-4.0); HEMATOCRIT 38.4 % (35.0-51.0); LYMPH # 0.7 K/uL (1.0-4.3); LYMPH % 10.3 % (20.0-40.0); MEAN CELL VOLUME 77.6 fL (80.0-94.0); MEAN CORPUSCULAR HGB CONC 32.2 g/dL (33.0-37.0); MEAN PLATELET VOLUME 8.9 fL (7.2-11.7); MONO # 0.9 K/uL (0.0-0.8); MONO % 12.5 % (0.0-10.0); NRBC % 0.1 % (0.0-2.0); RED CELL DISTRIBUTION WIDTH 17.8 % (11.5-14.5); WHITE BLOOD COUNT 7.2 K/uL (4.8-10.8)
[2016-07-04 08:20] LABS: POTASSIUM 3.8 mmol/L (3.6-5.2)
[2016-07-04 08:22] LABS: ALB/GLOB RATIO 0.9 (1.0-2.1); BILIRUBIN,TOTAL 0.6 mg/dL (0.2-1.3); TOTAL PROTEIN 6.4 g/dL (6.3-8.3)
[2016-07-04 08:23] LABS: CALCIUM 8.4 mg/dl (8.6-10.4); MAGNESIUM 1.4 mg/dL (1.6-2.3); PHOSPHOROUS 3.3 mg/dL (2.5-4.5)
[2016-07-04] MEDS: GlipiZIDE 10 mg SR Tab PO SCH (08:30)
[2016-07-04] MEDS: (Novolog) Insulin Aspart, Recombinant 100 u/ml 10 ml vial SC SCH ×5 (08:37→13:00)
[2016-07-04] MEDS: Pantoprazole 40 mg EC Tab PO SCH (10:17)
--- NOTE | 2016-07-04 10:50 | CP.PCM.PN ---
Subjective - Date & Time of Evaluation Date of Evaluation: 07/04/16 Time of Evaluation: 09:00 - Subjective Subjective: Medicine Progress Note Patient seen and examined. Patient is s/p cardiac cath yesterday. He currently states that he feels well and that his chest pain has resolved. He is breathing comfortably on nasal canula and denies dyspnea on exertion or cough. Patient denies discomfort at cath insertion site in left groin. Denies fever, chills, nausea, vomiting, abdominal pain, headache and dizziness. The patient was informed of his cath results. Per patient, he has been told in the past by his physician Dr Antonio about his aortic stenosis. Pt has discussed valve replacement surgery with Dr Antonio already. His last appointment with Dr Antonio was February 2016. Patient was explained the importance of valve replacement surgery and the risks of not having the surgery. Patient wishes to see Dr Antonio and set up the surgery as outpatient. Objective - Vital Signs/Intake and Output Vital Signs (last 24 hours): Temp Pulse Resp BP Pulse Ox 97.4 F L 92 H 20 160/76 H 97 07/04/16 07:14 07/04/16 10:15 07/04/16 07:14 07/04/16 10:16 07/04/16 07:14 - Medications Medications: Current Medications Amlodipine Besylate (Norvasc) 5 mg PO [facility] Last Admin: 07/03/16 22:04 Dose: 5 mg Aspirin (Ecotrin) 81 mg PO DAILY [facility] Last Admin: 07/04/16 10:17 Dose: 81 mg Cinacalcet (Sensipar) 30 mg PO DAILY [facility] Last Admin: 07/04/16 10:17 Dose: 30 mg Cyclobenzaprine HCl (Flexeril) 5 mg PO HS [facility] Last Admin: 07/03/16 22:04 Dose: 5 mg Ergocalciferol (Drisdol 50,000 Intl Units Cap) 1 cap PO Q7D [facility] Last Admin: 07/02/16 12:41 Dose: 1 cap Furosemide (Lasix) 40 mg PO BID [facility] Last Admin: 07/04/16 10:16 Dose: 40 mg Gabapentin (Neurontin) 100 mg PO TID [facility] Last Admin: 07/04/16 10:17 Dose: 100 mg Glipizide (Glucotrol Xl) 10 mg PO BIDAC [facility] Last Admin: 07/04/16 08:30 Dose: 10 mg Moxifloxacin HCl (Avelox Iv 400mg/250ml Ns) 400 mg in 250 mls @ 167 mls/hr IVPB Q24H [facility] Last Admin: 07/03/16 19:00 Dose: 167 mls/hr Insulin Aspart (Novolog) 0 unit SC ACHS [facility] PRN Reason: Protocol Last Admin: 07/04/16 08:42 Dose: 3 unit Insulin Aspart (Novolog) 30 unit SC AC [facility] Last Admin: 07/04/16 08:39 Dose: 30 unit Insulin Glargine (Lantus) 55 unit SC HS [facility] Last Admin: 07/03/16 22:03 Dose: 55 units Mycophenolate Mofetil (Cellcept) 500 mg PO BID [facility] Last Admin: 07/04/16 10:17 Dose: 500 mg Oxycodone/Acetaminophen (Percocet 5/325 Mg Tab) 1 tab PO Q6 PRN PRN Reason: Pain, severe (8-10) Stop: 07/05/16 06:47 Last Admin: 07/02/16 20:33 Dose: 1 tab Pantoprazole Sodium (Protonix Ec Tab) 40 mg PO DAILY [facility] Last Admin: 07/04/16 10:17 Dose: 40 mg Prednisone (Prednisone Tab) 5 mg PO DAILY [facility] Last Admin: 07/04/16 10:17 Dose: 5 mg Rosuvastatin Calcium (Crestor) 10 mg PO HS [facility] Last Admin: 07/03/16 22:04 Dose: 10 mg Sitagliptin Phosphate (Januvia) 50 mg PO DAILY [facility] Last Admin: 07/04/16 10:17 Dose: 50 mg Tacrolimus (Prograf Cap) 1 mg PO Q12 [facility] Last Admin: 07/04/16 10:17 Dose: 1 mg - Labs Labs: 07/04/16 06:19 07/04/16 06:19 PT 11.3 SECONDS (9.7-12.2) 07/02/16 05:04 INR 1.0 07/02/16 05:04 APTT 30 SECONDS (21-34) 07/02/16 05:04 - Constitutional Appears: Non-toxic, No Acute Distress - Head Exam Head Exam: ATRAUMATIC, NORMOCEPHALIC - Eye Exam Eye Exam: EOMI, Normal appearance - ENT Exam ENT Exam: Mucous Membranes Moist - Neck Exam Neck Exam: Normal Inspection - Respiratory Exam Respiratory Exam: Clear to Ausculation Bilateral, NORMAL BREATHING PATTERN. absent: Rhonchi, Wheezes, Respiratory Distress - Cardiovascular Exam Cardiovascular Exam: REGULAR RHYTHM, +S1, +S2, Murmur (systolic murmur ) - GI/Abdominal Exam GI & Abdominal Exam: Soft, Normal Bowel Sounds - Extremities Exam Extremities Exam: Normal Inspection (1+ pitting edema bilateral LE), Pedal Edema - Neurological Exam Neurological Exam: Alert, Awake, Oriented x3 - Psychiatric Exam Psychiatric exam: Normal Affect, Normal Mood - Skin Skin Exam: Dry, Intact, Normal Color, Warm Assessment and Plan - Assessment and Plan (Free Text) Assessment: NSTEMI Consult Cardiology- Dr. Lassiter- s/p cardiac cath on 07/03 which showed no significant CAD ROMIs positive- 0.3150, 0.3600, 0.2690 Asa 81mg PO Daily Continue Lasix 40mg PO BID ECHO- Severe valvular aortic stenosis, EF 52% Severe Aortic Stenosis Per patient, he has been told in the past by his physician Dr Antonio about his aortic stenosis. Patient wishes to see Dr Antonio and set up the surgery as outpatient. Diabetes Continue Lantus 55U SC HS Continue Novolog 30U SC AC Continue RISS Asa 81mg PO Daily Glipizide 10mg PO BIDAC Januvia 50mg PO Daily Neurontin 100mg PO TID HTN Continue Norvasc 5mg PO HS Hx of Renal transplant Consult- Nephro- Dr. Duggan Continue Prednisone 5mg PO Daily Tacrolimus 1mg Q12h Cellcept 500mg PO BID Sensipar 30mg PO Daily Prophylactic Measure Protonix 40mg PO Daily SCDs contraindicated due to bilateral LE edema Contraindicated for VTE therapy- pre op
--- NOTE | 2016-07-04 11:02 | CP.PCM.PN ---
Subjective - Date & Time of Evaluation Date of Evaluation: 07/04/16 Time of Evaluation: 11:00 - Subjective Subjective: seen and examined. no sob/chest pain. good uop s/p cardiac cath - no cad pending surgical eval for severe avr rise in creatinine noted Objective - Vital Signs/Intake and Output Vital Signs (last 24 hours): Temp Pulse Resp BP Pulse Ox 97.4 F L 92 H 20 160/76 H 97 07/04/16 07:14 07/04/16 10:15 07/04/16 07:14 07/04/16 10:16 07/04/16 07:14 - Medications Medications: Current Medications Amlodipine Besylate (Norvasc) 5 mg PO HS [facility] Last Admin: 07/03/16 22:04 Dose: 5 mg Aspirin (Ecotrin) 81 mg PO DAILY [facility] Last Admin: 07/04/16 10:17 Dose: 81 mg Cinacalcet (Sensipar) 30 mg PO DAILY [facility] Last Admin: 07/04/16 10:17 Dose: 30 mg Cyclobenzaprine HCl (Flexeril) 5 mg PO HS [facility] Last Admin: 07/03/16 22:04 Dose: 5 mg Ergocalciferol (Drisdol 50,000 Intl Units Cap) 1 cap PO Q7D [facility] Last Admin: 07/02/16 12:41 Dose: 1 cap Furosemide (Lasix) 40 mg PO BID [facility] Last Admin: 07/04/16 10:16 Dose: 40 mg Gabapentin (Neurontin) 100 mg PO TID [facility] Last Admin: 07/04/16 10:17 Dose: 100 mg Glipizide (Glucotrol Xl) 10 mg PO BIDAC [facility] Last Admin: 07/04/16 08:30 Dose: 10 mg Moxifloxacin HCl (Avelox Iv 400mg/250ml Ns) 400 mg in 250 mls @ 167 mls/hr IVPB Q24H [facility] Last Admin: 07/03/16 19:00 Dose: 167 mls/hr Insulin Aspart (Novolog) 0 unit SC ACHS [facility] PRN Reason: Protocol Last Admin: 07/04/16 08:42 Dose: 3 unit Insulin Aspart (Novolog) 30 unit SC AC [facility] Last Admin: 07/04/16 08:39 Dose: 30 unit Insulin Glargine (Lantus) 55 unit SC [facility] Last Admin: 07/03/16 22:03 Dose: 55 units Mycophenolate Mofetil (Cellcept) 500 mg PO BID [facility] Last Admin: 07/04/16 10:17 Dose: 500 mg Oxycodone/Acetaminophen (Percocet 5/325 Mg Tab) 1 tab PO Q6 PRN PRN Reason: Pain, severe (8-10) Stop: 07/05/16 06:47 Last Admin: 07/02/16 20:33 Dose: 1 tab Pantoprazole Sodium (Protonix Ec Tab) 40 mg PO DAILY [facility] Last Admin: 07/04/16 10:17 Dose: 40 mg Prednisone (Prednisone Tab) 5 mg PO DAILY [facility] Last Admin: 07/04/16 10:17 Dose: 5 mg Rosuvastatin Calcium (Crestor) 10 mg PO HS [facility] Last Admin: 07/03/16 22:04 Dose: 10 mg Sitagliptin Phosphate (Januvia) 50 mg PO DAILY [facility] Last Admin: 07/04/16 10:17 Dose: 50 mg Tacrolimus (Prograf Cap) 1 mg PO Q12 [facility] Last Admin: 07/04/16 10:17 Dose: 1 mg - Labs Labs: 07/04/16 06:19 07/04/16 06:19 PT 11.3 SECONDS (9.7-12.2) 07/02/16 05:04 INR 1.0 07/02/16 05:04 APTT 30 SECONDS (21-34) 07/02/16 05:04 - Constitutional Appears: No Acute Distress, Chronically Ill - Head Exam Head Exam: NORMAL INSPECTION - Eye Exam Eye Exam: Normal appearance - ENT Exam ENT Exam: Mucous Membranes Moist, Normal Exam - Neck Exam Neck Exam: Normal Inspection - Respiratory Exam Respiratory Exam: Decreased Breath Sounds, NORMAL BREATHING PATTERN - Cardiovascular Exam Cardiovascular Exam: REGULAR RHYTHM, RRR, Murmur (allan) - GI/Abdominal Exam GI & Abdominal Exam: Distended, Soft, Diminished Bowel Sounds - Extremities Exam Extremities Exam: Pedal Edema Additional comments: trace Assessment and Plan (1) Acute renal failure Status: Acute (2) Congestive heart failure Status: Acute (3) Dyspnea Status: Acute (4) NSTEMI (non-ST elevated myocardial infarction) Status: Acute (5) Type 2 diabetes mellitus with diabetic nephropathy Status: Acute (6) Aortic stenosis, residual Status: Acute (7) Cellulitis and abscess of foot Status: Acute (8) Chronic kidney disease, stage III (moderate) Status: Acute (9) Kidney replaced by transplant Status: Acute - Assessment and Plan (Free Text) Assessment: rafael / contrast nephropathy ckd 3 / ddrtx, on immunosuppression dm, high sugars htn plan: recommend strict blood sugar control avoid acei / arb monitor daily chems pending prograf level. maintain current immunosuppression rest per cardiology
--- NOTE | 2016-07-04 13:04 | CP.PCM.PN ---
Subjective - Date & Time of Evaluation Date of Evaluation: 07/04/16 Time of Evaluation: 13:03 - Subjective Subjective: Patient seen and evaluated at bedside, NAD. Bandage is c/d/i to the left foot. Patient denies any acute complaints, denies pain to his lower extremities. Objective - Vital Signs/Intake and Output Vital Signs (last 24 hours): Temp Pulse Resp BP Pulse Ox 97.4 F L 92 H 20 185/74 H 97 07/04/16 07:14 07/04/16 10:15 07/04/16 07:14 07/04/16 11:41 07/04/16 07:14 - Medications Medications: Current Medications Amlodipine Besylate (Norvasc) 5 mg PO HS [facility] Last Admin: 07/03/16 22:04 Dose: 5 mg Aspirin (Ecotrin) 81 mg PO DAILY [facility] Last Admin: 07/04/16 10:17 Dose: 81 mg Cinacalcet (Sensipar) 30 mg PO DAILY [facility] Last Admin: 07/04/16 10:17 Dose: 30 mg Cyclobenzaprine HCl (Flexeril) 5 mg PO HS [facility] Last Admin: 07/03/16 22:04 Dose: 5 mg Ergocalciferol (Drisdol 50,000 Intl Units Cap) 1 cap PO Q7D [facility] Last Admin: 07/02/16 12:41 Dose: 1 cap Furosemide (Lasix) 40 mg PO BID [facility] Last Admin: 07/04/16 10:16 Dose: 40 mg Gabapentin (Neurontin) 100 mg PO TID [facility] Last Admin: 07/04/16 10:17 Dose: 100 mg Glipizide (Glucotrol Xl) 10 mg PO BIDAC [facility] Last Admin: 07/04/16 08:30 Dose: 10 mg Moxifloxacin HCl (Avelox Iv 400mg/250ml Ns) 400 mg in 250 mls @ 167 mls/hr IVPB Q24H [facility] Last Admin: 07/03/16 19:00 Dose: 167 mls/hr Insulin Aspart (Novolog) 0 unit SC ACHS [facility] PRN Reason: Protocol Last Admin: 07/04/16 13:00 Dose: 3 unit Insulin Aspart (Novolog) 30 unit SC AC [facility] Last Admin: 07/04/16 13:00 Dose: 30 unit Insulin Glargine (Lantus) 55 unit SC HS [facility] Last Admin: 07/03/16 22:03 Dose: 55 units Mycophenolate Mofetil (Cellcept) 500 mg PO BID [facility] Last Admin: 07/04/16 10:17 Dose: 500 mg Oxycodone/Acetaminophen (Percocet 5/325 Mg Tab) 1 tab PO Q6 PRN PRN Reason: Pain, severe (8-10) Stop: 07/05/16 06:47 Last Admin: 07/02/16 20:33 Dose: 1 tab Pantoprazole Sodium (Protonix Ec Tab) 40 mg PO DAILY [facility] Last Admin: 07/04/16 10:17 Dose: 40 mg Prednisone (Prednisone Tab) 5 mg PO DAILY [facility] Last Admin: 07/04/16 10:17 Dose: 5 mg Rosuvastatin Calcium (Crestor) 10 mg PO HS [facility] Last Admin: 07/03/16 22:04 Dose: 10 mg Sitagliptin Phosphate (Januvia) 50 mg PO DAILY [facility] Last Admin: 07/04/16 10:17 Dose: 50 mg Tacrolimus (Prograf Cap) 1 mg PO Q12 [facility] Last Admin: 07/04/16 10:17 Dose: 1 mg - Labs Labs: 07/04/16 06:19 07/04/16 06:19 PT 11.3 SECONDS (9.7-12.2) 07/02/16 05:04 INR 1.0 07/02/16 05:04 APTT 30 SECONDS (21-34) 07/02/16 05:04 - Constitutional Appears: Well, Non-toxic, No Acute Distress - Neurological Exam Neurological Exam: Oriented x3 - Psychiatric Exam Psychiatric exam: Normal Affect, Normal Mood - Additional Findings Additional findings: DERMATOLOGIC: Left lower extremity full thickness ulceration with hyperkeratotic borders, granular base, mild serous drainage, negative purulence, negative erythema, negative tracking. Surrounding skin is intact. VASCULAR: DP/PT pulses 1/4, PHYSICAL METEOROLOGIST<3 seconds, skin temperature is normal NEUROLOGIC: Protective sensation diminished ORTHOPEDIC: Multiple digital amputations left foot Assessment and Plan - Assessment and Plan (Free Text) Assessment: 56 year old male with chronic left foot plantar ulceration Plan: Patient seen and evaluated, d/w attending Dr. Sanchez Patients left foot dressing changed with betadine, DSD Foot stable at this time Podiatry will continue to follow while in house
[2016-07-04 15:55] VITALS: BP 154/86; PULSE 87; TEMP 97.8
[2016-07-04 18:56] VITALS: O2SAT 98
== END 2016-07-04 16:00 | disposition home or self-care (01) | DRG 280 ==
LOC: C.ER 04:40 → C.9E 05:58 → C.6T 06:17
PROVIDERS: ADMIT Internal Medicine Pulmonary Disease; ATTEND Internal Medicine Pulmonary Disease
PROC: 4A023N7 Measurement of Cardiac Sampling and Pressure, Left Heart, Percutaneous Approach (ICD-10-PCS; principal; 2016-07-03)
PROC: B2151ZZ Fluoroscopy of Left Heart using Low Osmolar Contrast (ICD-10-PCS; 2016-07-03)
PROC: B2111ZZ Fluoroscopy of Multiple Coronary Arteries using Low Osmolar Contrast (ICD-10-PCS; 2016-07-03)
DX: I21.4 Non-ST elevation (NSTEMI) myocardial infarction (principal); I50.23 Acute on chronic systolic (congestive) heart failure; N17.9 Acute kidney failure, unspecified; Z94.0 Kidney transplant status; E11.51 Type 2 diabetes mellitus with diabetic peripheral angiopathy without gangrene; E11.621 Type 2 diabetes mellitus with foot ulcer; I11.0 Hypertensive heart disease with heart failure; I35.0 Nonrheumatic aortic (valve) stenosis; L97.519 Non-pressure chronic ulcer of other part of right foot with unspecified severity; J44.9 Chronic obstructive pulmonary disease, unspecified; E78.00 Pure hypercholesterolemia, unspecified; M06.9 Rheumatoid arthritis, unspecified; E66.01 Morbid (severe) obesity due to excess calories; Z89.411 Acquired absence of right great toe; Z90.49 Acquired absence of other specified parts of digestive tract; Z87.19 Personal history of other diseases of the digestive system; Z79.4 Long term (current) use of insulin; Z87.891 Personal history of nicotine dependence

== ENCOUNTER 2016-07-05 15:42 | Inpatient (IN) | payer MEDICARE, BC ==
[2016-07-05 15:43] VITALS: BMI 31.0
--- NOTE | 2016-07-05 16:26 | C.PDOC ---
History Of Present Illness The patient, a 56 y/o male whose PMHx includes CHF and Aortic Stenosis, presents to the ED for evaluation of chest pain and shortness of breath which began around 2 hours [employer]. Patient states his symptoms are exacerbated with walking. He states he has been using oxygen at home as needed. Patient was recently admitted under Dr. Amezcua's care for CHF exacerbation. Patient denies fever, chills, nausea, vomiting, extremity numbness/weakness. Time Seen by Provider: 07/05/16 16:06 Chief Complaint (Nursing): Chest Pain History Per: Patient History/Exam Limitations: no limitations Onset/Duration Of Symptoms: Hrs (2) Current Symptoms Are (Timing): Still Present Quality: "Pain" Current Respiratory Medications: See Home Med List Associated Symptoms: denies: Fever, Chills Additional History Per: Patient Past Medical History Reviewed: Historical Data, Nursing Documentation, Vital Signs Vital Signs: Last Vital Signs Temp 98 F 07/05/16 15:49 Pulse 93 H 07/05/16 15:49 Resp 20 07/05/16 15:49 BP 162/90 H 07/05/16 15:49 Pulse Ox 95 07/05/16 17:28 - Medical History PMH: CAD, CHF, COPD, Diabetes, HTN, Hypercholesterolemia, Chronic Kidney Disease , Rheumatoid Arthritis Comment Only: End Stage Renal Disease (kidney transplant rt side) Surgical History: Appendectomy - [facility] Procedures CLOSURE SKIN & SUBCUTANEOUS NEC (03/13/14) DESTRUC-FOOT JT LES NEC (03/07/14) DETACHMENT AT RIGHT FOOT, PARTIAL 1ST RAY, OPEN APPROACH (03/08/15) EXCIS DEBRIDE OF WOUND, INFECT, OR BURN (03/17/14) EXCISION OF LEFT FOOT SKIN, EXTERNAL APPROACH (10/13/15) HEMODIALYSIS (02/28/13) INJECT ANTIBIOTIC (03/13/14) INSERTION OF INFUSION DEV INTO R BASILIC VEIN, PERC APPROACH (10/13/15) OCCUPATIONAL THERAPY (03/13/14) OTHER SKIN & SUBQ I D (01/02/13) PHYSICAL THERAPY NEC (03/13/14) REPLACE L FOOT SKIN W NONAUT SUB, FULL THICK, [employer] (10/13/15) TOE AMPUTATION (03/07/14) Family History: States: Unknown Family Hx - Social History Hx Tobacco Use: No Hx Alcohol Use: No Hx Substance Use: No - Immunization History Hx Tetanus Toxoid Vaccination: Yes Hx Influenza Vaccination: No Hx Pneumococcal Vaccination: No Review Of Systems Except As Marked, All Systems Reviewed And Found Negative. Constitutional: Negative for: Fever, Chills Cardiovascular: Positive for: Chest Pain Respiratory: Positive for: Shortness of Breath Gastrointestinal: Negative for: Nausea, Vomiting Neurological: Negative for: Weakness, Numbness Physical Exam - Physical Exam Appears: Non-toxic, No Acute Distress Skin: Normal Color, Warm, Dry Head: Atraumatic, Normacephalic Eye(s): bilateral: Normal Inspection Oral Mucosa: Moist Neck: Supple Chest: Symmetrical, No Deformity, No Tenderness Cardiovascular: Rhythm Regular, No Murmur Respiratory: Rales (bilaterally, basilar ), No Rhonchi, No Wheezing, Other (+ tachypneic. patient is speaking full sentences ) Back: Normal Inspection, No Vertebral Tenderness, No Paraspinal Tenderness Extremity: Normal ROM, Capillary Refill (less than 2 seconds ) Neurological/Psych: Oriented x3, Normal Speech, Normal Cognition Gait: Steady ED Course And Treatment - Laboratory Results Result Diagrams: 07/05/16 16:55 07/05/16 16:55 ECG: Interpreted By Me ECG Rhythm: Sinus Rhythm ECG Interpretation: Normal Rate From EC O2 Sat by Pulse Oximetry: 95 (on RA) Pulse Ox Interpretation: Normal Progress Note: labs, EKG, CXR ordered and reviewed. Progress - Re-Evaluation Re-evaluation Note: 07/05/16 17:46 EXAM UNCH FROM INITIAL. D/W DR AMEZCUA, WILL ADMIT - Data Reviewed Data Reviewed: Lab, Diagnostic imaging, EKG, Old records - Continuity of Care Discussed patient case with:: Patient Disposition Counseled Patient/Family Regarding: Studies Performed, Diagnosis - Disposition Disposition: HOSPITALIZED Disposition Time: 17:46 Condition: STABLE - POA Present On Arrival: None - Clinical Impression Clinical Impression: Aortic stenosis, Chest pain - Scribe Statement The provider has reviewed the documentation as recorded by the Scribe (Love Moya) Provider Attestation: All medical record entries made by the Scribe were at my direction and personally dictated by me. I have reviewed the chart and agree that the record accurately reflects my personal performance of the history, physical exam, medical decision making, and the department course for this patient. I have also personally directed, reviewed, and agree with the discharge instructions and disposition. Decision To Admit - Pt Status Changed To: Hospital Disposition Of: Inpatient - Admit Certification Admit to Inpatient:: After my assessment, the patient will require hospitalization for at least two midnights. This is because of the severity of symptoms shown, intensity of services needed, and/or the medical risk in this patient being treated as an outpatient. - InPatient: Physician Admission Certification: I certify that this patient requires 2 or more midnights of care for the following reason:: SEE NOTE - . Bed Request Type: Telemetry Admitting Physician: Ashia Amezcua Patient Diagnosis: Aortic stenosis, Chest pain
[2016-07-05] MEDS ORDERED: Nitroglycerin 2% Ointment Foilpak UD TOP STA (16:40)
--- NOTE | 2016-07-05 17:00 | RAD ---
PROCEDURE: CHEST RADIOGRAPH, 1 VIEW HISTORY: chest pain COMPARISON: Comparison chest 07/02/2026. FINDINGS: LUNGS: Poor inspiration with low lung volumes, mild crowded bronchovascular markings and mild bibasilar atelectasis. Small effusion not excluded PLEURA: No apparent pneumothorax CARDIOVASCULAR: Heart appears enlarged. OSSEOUS STRUCTURES: No significant abnormalities. VISUALIZED UPPER ABDOMEN: Normal. OTHER FINDINGS: None. IMPRESSION: Poor inspiration with low lung volumes, mild crowded bronchovascular markings and mild bibasilar atelectasis. Small effusion not excluded
[2016-07-05 17:10] LABS: BASO % 0.5 % (0.0-2.0); EOS # 0.2 K/uL (0.0-0.7); EOS % 2.4 % (0.0-4.0); HEMATOCRIT 38.9 % (35.0-51.0); LYMPH # 0.6 K/uL (1.0-4.3); MEAN CELL VOLUME 77.6 fL (80.0-94.0); MEAN CORPUSCULAR HEMOGLOBIN 24.5 pg (27.0-31.0); MEAN CORPUSCULAR HGB CONC 31.6 g/dL (33.0-37.0); MONO # 0.8 K/uL (0.0-0.8); MONO % 8.9 % (0.0-10.0); PLATELET COUNT 199 K/uL (130-400); RED CELL DISTRIBUTION WIDTH 18.2 % (11.5-14.5); WHITE BLOOD COUNT 8.7 K/uL (4.8-10.8)
[2016-07-05 17:14] LABS: POTASSIUM 4.7 mmol/L (3.6-5.2)
[2016-07-05 17:16] LABS: ALB/GLOB RATIO 0.9 (1.0-2.1); BILIRUBIN,TOTAL 0.9 mg/dL (0.2-1.3); TOTAL PROTEIN 6.9 g/dL (6.3-8.3)
[2016-07-05 17:17] LABS: CALCIUM 9.1 mg/dl (8.6-10.4)
[2016-07-05 17:28] LABS: TROPONIN I 0.106 ng/mL (0.00-0.120)
[2016-07-05 18:37] LABS: BASOPHIL 1 % (0-2); EOSINOPHIL 1 % (0-4); NEUTROPHIL 83 % (50-75); TOTAL CELLS COUNTED 100
[2016-07-05 18:40] LABS: LARGE PLATELETS PRESENT
[2016-07-05] MEDS ORDERED: Oxycodone/Acetaminophen 5/325 mg Tab PO PRN (20:49)
[2016-07-05 21:15] VITALS: RESP 20
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
--- NOTE | 2016-07-06 09:35 | CP.PCM.PN ---
Subjective - Date & Time of Evaluation Date of Evaluation: 07/06/16 Time of Evaluation: 07:40 - Subjective Subjective: patient has dyspnea at rest. Objective - Vital Signs/Intake and Output Vital Signs (last 24 hours): Temp Pulse Resp BP Pulse Ox 98.2 F 86 20 143/83 99 07/06/16 07:30 07/06/16 07:30 07/06/16 07:30 07/06/16 07:30 07/06/16 07:30 Intake and Output: 07/06/16 07/06/16 06:59 18:59 Intake Total 480 Balance 480 - Medications Medications: Current Medications Amlodipine Besylate (Norvasc) 5 mg PO HS [facility] Last Admin: 07/05/16 22:46 Dose: 5 mg Aspirin (Ecotrin) 81 mg PO DAILY [facility] Cinacalcet (Sensipar) 30 mg PO DAILY [facility] Cyclobenzaprine HCl (Flexeril) 5 mg PO HS [facility] Last Admin: 07/05/16 22:46 Dose: 5 mg Enoxaparin Sodium (Lovenox) 40 mg SC DAILY [facility] Ergocalciferol (Drisdol 50,000 Intl Units Cap) 1 cap PO QWK [facility] Furosemide (Lasix) 40 mg IVP DAILY [facility] Gabapentin (Neurontin) 100 mg PO TID [facility] Glipizide (Glucotrol Xl) 10 mg PO BID [facility] Mycophenolate Mofetil (Cellcept) 500 mg PO BID [facility] Oxycodone/Acetaminophen (Percocet 5/325 Mg Tab) 1 tab PO Q6 PRN PRN Reason: Pain, severe (8-10) Stop: 07/08/16 20:50 Last Admin: 07/06/16 03:26 Dose: 1 tab Pantoprazole Sodium (Protonix Ec Tab) 40 mg PO DAILY [facility] Prednisone (Prednisone Tab) 5 mg PO DAILY [facility] Rosuvastatin Calcium (Crestor) 10 mg PO HS [facility] Last Admin: 07/05/16 22:46 Dose: 10 mg Sitagliptin Phosphate (Januvia) 50 mg PO DAILY [facility] Tacrolimus (Prograf Cap) 1 mg PO Q12 [facility] Last Admin: 07/05/16 22:46 Dose: 1 mg - Constitutional Appears: Non-toxic - Head Exam Head Exam: NORMAL INSPECTION - Eye Exam Eye Exam: Normal appearance - ENT Exam ENT Exam: Mucous Membranes Moist - Neck Exam Neck Exam: Full ROM - Respiratory Exam Respiratory Exam: Decreased Breath Sounds - Cardiovascular Exam Cardiovascular Exam: REGULAR RHYTHM, Murmur Additional comments: systolic crescendo - GI/Abdominal Exam GI & Abdominal Exam: Normal Bowel Sounds - Rectal Exam Rectal Exam: Deferred - Extremities Exam Extremities Exam: Full ROM, Pedal Edema - Back Exam Back Exam: NORMAL INSPECTION - Neurological Exam Neurological Exam: Alert, Oriented x3 - Psychiatric Exam Psychiatric exam: Normal Affect - Skin Skin Exam: Normal Color Assessment and Plan (1) Acute on chronic diastolic CHF (congestive heart failure), NYHA class 3 Assessment & Plan: improving with medical therapy Status: Acute (2) Aortic stenosis Assessment & Plan: severe. will transfer for AVR. 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
--- NOTE | 2016-07-06 09:55 | CP.PCM.PN ---
Subjective - Date & Time of Evaluation Date of Evaluation: 07/06/16 Time of Evaluation: 08:00 - Subjective Subjective: Medicine Note- Dr. Blake's service Patient was seen and examined at bedside. Patient reports he still feels mildly short of breath, but is improved since he came in. He denies any chest pain, palpitations. No events overnight, per nursing. Objective - Vital Signs/Intake and Output Vital Signs (last 24 hours): Temp Pulse Resp BP Pulse Ox 98.2 F 86 20 143/83 99 07/06/16 07:30 07/06/16 07:30 07/06/16 07:30 07/06/16 07:30 07/06/16 07:30 Intake and Output: 07/06/16 07/06/16 06:59 18:59 Intake Total 480 Balance 480 - Medications Medications: Current Medications Amlodipine Besylate (Norvasc) 5 mg PO HS [facility] Last Admin: 07/05/16 22:46 Dose: 5 mg Aspirin (Ecotrin) 81 mg PO DAILY [facility] Cinacalcet (Sensipar) 30 mg PO DAILY [facility] Cyclobenzaprine HCl (Flexeril) 5 mg PO HS [facility] Last Admin: 07/05/16 22:46 Dose: 5 mg Enoxaparin Sodium (Lovenox) 40 mg SC DAILY [facility] Ergocalciferol (Drisdol 50,000 Intl Units Cap) 1 cap PO QWK [facility] Furosemide (Lasix) 40 mg IVP DAILY [facility] Gabapentin (Neurontin) 100 mg PO TID [facility] Glipizide (Glucotrol Xl) 10 mg PO BID [facility] Mycophenolate Mofetil (Cellcept) 500 mg PO BID [facility] Oxycodone/Acetaminophen (Percocet 5/325 Mg Tab) 1 tab PO Q6 PRN PRN Reason: Pain, severe (8-10) Stop: 07/08/16 20:50 Last Admin: 07/06/16 03:26 Dose: 1 tab Pantoprazole Sodium (Protonix Ec Tab) 40 mg PO DAILY [facility] Prednisone (Prednisone Tab) 5 mg PO DAILY [facility] Rosuvastatin Calcium (Crestor) 10 mg PO HS [facility] Last Admin: 07/05/16 22:46 Dose: 10 mg Sitagliptin Phosphate (Januvia) 50 mg PO DAILY [facility] Tacrolimus (Prograf Cap) 1 mg PO Q12 [facility] Last Admin: 07/05/16 22:46 Dose: 1 mg - Constitutional Appears: Non-toxic, No Acute Distress - Head Exam Head Exam: ATRAUMATIC, NORMAL INSPECTION, NORMOCEPHALIC - Eye Exam Pupil Exam: NORMAL ACCOMODATION, PERRL - ENT Exam ENT Exam: Mucous Membranes Moist - Respiratory Exam Respiratory Exam: Rales, NORMAL BREATHING PATTERN - Cardiovascular Exam Cardiovascular Exam: REGULAR RHYTHM, +S1, +S2, Murmur - GI/Abdominal Exam GI & Abdominal Exam: Soft, Normal Bowel Sounds. absent: Tenderness, Diminished Bowel Sounds, Hypoactive Bowel Sounds - Extremities Exam Extremities Exam: Normal Capillary Refill, Normal Inspection - Neurological Exam Neurological Exam: Alert, Awake, Oriented x3 - Psychiatric Exam Psychiatric exam: Normal Affect, Normal Mood - Skin Skin Exam: Dry, Intact, Normal Color, Warm Assessment and Plan - Assessment and Plan (Free Text) Assessment: Acute on Chronic Diastolic Heart Failure Consult Cardio- Dr. Lassiter Continue Lasix 40mg IVP Daily Echo- 07/03/16- Severe calcific valvular aortic stenosis. Caulcated aortic valve area is -0.8cm2 with maximum pressure gradient of 61 mmhg and mean pressure gradient of 38mmHg. Mild-mod aortic regurg. Mild to mod concentric LVH. Systolic function is mildly impaired. Severe Aortic Stenosis Consult cardio- Dr. Lassiter- Will be transferred to [facility] for AVR, EMTALA filled out. Diabetes Continue Lantus 55U SC HS Continue Novolog 30U SC AC Continue RISS Asa 81mg PO Daily Glipizide 10mg PO BIDAC Januvia 50mg PO Daily Neurontin 100mg PO TID [facility]N Continue Norvasc 5mg PO HS Hx of Renal transplant Consult- Nephro- Dr. Duggan Continue Prednisone 5mg PO Daily Tacrolimus 1mg Q12h Cellcept 500mg PO BID Sensipar 30mg PO Daily Prophylactic Measure Protonix 40mg PO Daily SCDs contraindicated due to bilateral LE edema Contraindicated for VTE therapy- pre op Medical management as per Dr. Blake.
[2016-07-06] MEDS ORDERED: Ergocalciferol 50,000 Intl Units Cap PO SCH (10:00)
[2016-07-06] MEDS ORDERED: Pantoprazole 40 mg EC Tab PO SCH (10:00)
[2016-07-06] MEDS: GlipiZIDE 10 mg SR Tab PO SCH ×2 (10:48→18:23)
[2016-07-06] MEDS: Enoxaparin 40 mg Syringe SC SCH ×2 (10:49→10:55)
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
--- NOTE | 2016-07-06 11:49 | CON ---
DATE: 07/06/2016 The patient is a 56-year-old man with history of being status post kidney transplantation with stable kidney function, who had recurrent congestive heart failure. This is the second recurrence within t he last week. He has a history of hypertension, posttransplant diabetes mellitus, peripheral vascula r disease. He has known about the aortic stenosis previously, but that was asymptomatic until recent ly. He was seen by women designer, and it was felt that he needed an aortic valve replacement. Arrang ements are being made for this. PAST SURGICAL HISTORY: Kidney transplantation, an AV fistula, and a partial colectomy for ischemic b owel. He also had one toe amputated for peripheral vascular disease. SOCIAL HISTORY: He is a former smoker. No history of alcohol abuse or illicit drug use. MEDICATIONS: Include CellCept, Crestor, vitamin D, aspirin, glipizide. Now he is on IV Lasix. Amlo dipine, tacrolimus, and prednisone 5 mg daily. REVIEW OF SYSTEMS: Significant for increasing dyspnea on exertion, orthopnea. No fevers or chills. No nausea or vomiting. He had chest pain with the dyspnea. No diarrhea, no new rashes, no visual d isturbances or hearing deficits. All other review of systems was negative. FAMILY HISTORY: Noncontributory. IMPRESSION: The patient has recurrent congestive heart failure, aortic stenosis, chronic kidney dise ase stage III, status post kidney transplantation of a cadaver kidney and diabetes mellitus posttrans plant, and peripheral vascular disease, and has history of ischemic bowel. PLAN: The plan would be for ____ for a valve replacement. Arrangements are being made. He will nee d Prograf levels as well. We will follow up. Ivan Duggan MD cc: [id number] TT: 07/06/2016 11:48:52 Confirmation # [id number] Dictation # [id number] niya
--- NOTE | 2016-07-06 13:42 | HP ---
HISTORY OF PRESENT ILLNESS: A 56-year-old male coming to the hospital with complaint of shortness of breath, weakness, fatigue, tiredness. The patient just diagnosed with ____ aortic stenosis, was dis charged to be evaluated by cardiac surgery as outpatient ____ . The patient stated that since discha rge ____ short of breath on slight exertion which has been getting progressively worse. The patient comes to the ER ____. PAST MEDICAL HISTORY: Kidney transplant, hypertension ____. PHYSICAL EXAMINATION: GENERAL: The patient is awake, alert, oriented. VITAL SIGNS: Temperature 98, pulse 90. HEENT: Within normal limits. NECK: Supple. CHEST: Symmetrical. HEART: Regular. ABDOMEN: Soft. EXTREMITIES: No edema. The patient ____ severe aortic stenosis ____. The patient ____ with Lasix. Cardiology evaluation. Ashia Will MD cc: [id number] TT: 07/06/2016 11:17:57 carleen
--- NOTE | 2016-07-06 16:45 | CARD ---
APPROVED REPORT EKG Measurement Heart [id number] <Conclusion> Normal sinus rhythm Normal ECG
[2016-07-06] MEDS ORDERED: (Lantus) Insulin Glargine, Recombinant SC SCH (22:15)
[2016-07-07 01:27] VITALS: PULSE 85
[2016-07-07 01:48] VITALS: BP 136/76; TEMP 98; O2SAT 99
[2016-07-07] MEDS ORDERED: (Novolog) Insulin Aspart, Recombinant 100 u/ml 10 ml vial SC SCH (07:30)
--- NOTE | 2016-08-14 10:09 | DS ---
The patient will be discharged, follow up in the outpatient. Ashia Will MD cc: [id number] TT: 08/11/2016 10:57:52 tn
== END 2016-07-07 02:00 | disposition short-term general hospital (02) | DRG 306 ==
LOC: C.ER 15:42 → C.9E 17:48 → C.6T 19:19
PROVIDERS: ADMIT Internal Medicine Pulmonary Disease; ATTEND Internal Medicine Pulmonary Disease
DX: I35.0 Nonrheumatic aortic (valve) stenosis (principal); N18.6 End stage renal disease; I50.33 Acute on chronic diastolic (congestive) heart failure; M62.82 Rhabdomyolysis; I13.2 Hypertensive heart and chronic kidney disease with heart failure and with stage 5 chronic kidney disease, or end stage renal disease; Z94.0 Kidney transplant status; E11.22 Type 2 diabetes mellitus with diabetic chronic kidney disease; J44.9 Chronic obstructive pulmonary disease, unspecified; I25.10 Atherosclerotic heart disease of native coronary artery without angina pectoris; I11.0 Hypertensive heart disease with heart failure; E78.00 Pure hypercholesterolemia, unspecified; M06.9 Rheumatoid arthritis, unspecified; Z87.891 Personal history of nicotine dependence; Z99.2 Dependence on renal dialysis; E11.621 Type 2 diabetes mellitus with foot ulcer; Z93.3 Colostomy status; I73.9 Peripheral vascular disease, unspecified

== ENCOUNTER 2016-09-23 14:53 | Inpatient (IN) | payer MEDICARE, BC ==
[2016-09-23 14:54] VITALS: BMI 31.0
[2016-09-23] MEDS ORDERED: Piperacillin/Tazobact 3.375 gm 100 ML IV STA (15:41)
[2016-09-23] MEDS ORDERED: Oxycodone/Acetaminophen 5/325 mg Tab PO STA (15:41)
[2016-09-23] MEDS ORDERED: Vancomycin 1 GM 1 GM/250 ML BAG IV SCH (15:45)
[2016-09-23] MEDS ORDERED: Oxycodone/Acetaminophen 5/325 mg Tab ONE (15:53)
--- NOTE | 2016-09-23 16:06 | RAD ---
PROCEDURE: Right Foot Radiographs. HISTORY: R 1/2nd toe infected, ? gas/osteo COMPARISON: 09/21/2016 FINDINGS: BONES: There is no evidence of bony erosion or bone destruction. Status post amputation of the great toe and 1st metatarsal. There are deformities in the heads of the 2nd, 3rd and 4th metatarsals. Bone alignment and mineralization are normal. JOINTS: Normal. SOFT TISSUES: There is diffuse soft tissue swelling in the foot. OTHER FINDINGS: Atherosclerotic vascular calcifications are present. IMPRESSION: No radiographic evidence for osteomyelitis.
[2016-09-23 16:16] LABS: BASO # 0.1 K/uL (0.0-0.2); BASO % 0.4 % (0.0-2.0); EOS # 0.2 K/uL (0.0-0.7); EOS % 1.3 % (0.0-4.0); HEMOGLOBIN 11.9 g/dL (12.0-18.0); LYMPH # 0.5 K/uL (1.0-4.3); LYMPH % 3.1 % (20.0-40.0); MEAN CELL VOLUME 77.4 fL (80.0-94.0); MEAN CORPUSCULAR HEMOGLOBIN 24.6 pg (27.0-31.0); MEAN CORPUSCULAR HGB CONC 31.7 g/dL (33.0-37.0); MEAN PLATELET VOLUME 8.9 fL (7.2-11.7); MONO # 1.1 K/uL (0.0-0.8); MONO % 7.3 % (0.0-10.0); NEUT # 13.9 K/uL (1.8-7.0); NEUT % 87.9 % (50.0-75.0); PLATELET COUNT 185 K/uL (130-400); RBC 4.83 Mil/uL (4.40-5.90); WHITE BLOOD COUNT 15.8 K/uL (4.8-10.8)
[2016-09-23 16:24] LABS: ALBUMIN 3.4 g/dL (3.5-5.0)
[2016-09-23 16:25] LABS: INR 1.2; PROTHROMBIN TIME 13.6 SECONDS (9.7-12.2)
[2016-09-23 16:27] LABS: ALB/GLOB RATIO 0.8 (1.0-2.1); AST/SGOT 17 U/L (17-59); BLOOD UREA NITROGEN 18 mg/dL (9-20); GFR AFRICAN-AMERICAN > 60; GFR NON-AFRICAN AMERICAN 52
[2016-09-23 16:28] LABS: ALT/SGPT 24 U/L (21-72)
[2016-09-23] MEDS ORDERED: Piperacillin/Tazobact 3.375 gm 100 ML IVPB ONE (16:36)
[2016-09-23 16:37] LABS: B-TYPE NATRIURETIC PEPTIDE 1480 pg/mL (0-900)
[2016-09-23 16:37] LABS: VENOUS BLOOD GAS BASE EXCESS 1.3 mmol/L (0.0-2.0); VENOUS BLOOD GAS PCO2 40 mmHg (40-60); VENOUS BLOOD GAS PO2 20 mm/Hg (30-55); VENOUS BLOOD PH 7.42 (7.32-7.43)
[2016-09-23 17:11] LABS: LYMPHOCYTE 6 % (20-40); MONOCYTE 3 % (0-10); NEUTROPHIL 91 % (50-75); TOTAL CELLS COUNTED 100
[2016-09-23] MEDS ORDERED: (Novolin R) Insulin Human Regular 100 units/ml vial IV STA ×2 (17:11→18:54)
[2016-09-23 17:12] LABS: ANISOCYTOSIS SLIGHT; HYPOCHROMIC SLIGHT; MICROCYTOSIS SLIGHT; PLATELET ESTIMATE NORMAL (NORMAL); POLYCHROMIC SLIGHT
--- NOTE | 2016-09-23 17:14 | C.PDOC ---
History Of Present Illness 56 year old male presents to the emergency department with complaints of foul smelling discharge and tenderness to the right foot. Patient has chronic diabetic foot ulcer that is attended by Dr. Sanchez. He notes he lost his follow up and is in the process moving and lost pain and diabetes medication. Patient' s diabetes is currently uncontrolled and he denies any fever, nausea, vomiting, or other complaints at this time. Time Seen by Provider: 09/23/16 15:35 Chief Complaint (Nursing): Fever History Per: Patient History/Exam Limitations: no limitations Onset/Duration Of Symptoms: Persistent (chronic diabetic foot ) Current Symptoms Are (Timing): Still Present Sick Contacts (Context): None Associated Symptoms: denies: Fever, Chills, Vomiting Recent travel outside of the [place]: No Additional History Per: Prior Records Past Medical History Reviewed: Historical Data, Nursing Documentation, Vital Signs Vital Signs: Last Vital Signs Temp 99.1 F 09/23/16 18:02 Pulse 111 H 09/23/16 18:02 Resp 20 09/23/16 18:02 BP 135/78 09/23/16 18:02 Pulse Ox 95 09/23/16 18:02 - Medical History PMH: CAD, CHF, COPD, Diabetes, HTN, Hypercholesterolemia, Chronic Kidney Disease , Rheumatoid Arthritis Comment Only: End Stage Renal Disease (kidney transplant rt side) Surgical History: Appendectomy - [facility] Procedures CLOSURE SKIN & SUBCUTANEOUS NEC (03/13/14) DESTRUC-FOOT JT LES NEC (03/07/14) DETACHMENT AT RIGHT FOOT, PARTIAL 1ST RAY, OPEN APPROACH (03/08/15) EXCIS DEBRIDE OF WOUND, INFECT, OR BURN (03/17/14) EXCISION OF LEFT FOOT SKIN, EXTERNAL APPROACH (10/13/15) FLUOROSCOPY OF LEFT HEART USING LOW OSMOLAR CONTRAST (07/02/16) FLUOROSCOPY OF MULT COR ART USING L OSM CONTRAST (07/02/16) HEMODIALYSIS (02/28/13) INJECT ANTIBIOTIC (03/13/14) INSERTION OF INFUSION DEV INTO R BASILIC VEIN, PERC APPROACH (10/13/15) MEASURE OF CARDIAC SAMPL & PRESSURE, L HEART, PERC APPROACH (07/02/16) OCCUPATIONAL THERAPY (03/13/14) OTHER SKIN & SUBQ I D (01/02/13) PHYSICAL THERAPY NEC (03/13/14) REPLACE L FOOT SKIN W NONAUT SUB, FULL THICK, 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 (10/13/15) TOE AMPUTATION (03/07/14) Family History: States: Unknown Family Hx - Social History Hx Tobacco Use: No Hx Alcohol Use: Yes Hx Substance Use: No - Immunization History Hx Tetanus Toxoid Vaccination: Yes Hx Influenza Vaccination: No Hx Pneumococcal Vaccination: No Review Of Systems Constitutional: Negative for: Fever, Chills Cardiovascular: Negative for: Chest Pain, Palpitations Respiratory: Negative for: Cough, Shortness of Breath Gastrointestinal: Negative for: Nausea, Vomiting, Abdominal Pain, Diarrhea Musculoskeletal: Positive for: Foot Pain ( foul smelling discharge and tenderness of the right foot ) Physical Exam - Physical Exam Appears: Non-toxic, In Acute Distress (patient appears to be in moderate distress ) Skin: Warm, Dry Head: Atraumatic Eye(s): bilateral: Normal Inspection, PERRL, EOMI Oral Mucosa: Moist Neck: Supple Chest: Symmetrical, No Deformity Cardiovascular: Rhythm Regular Respiratory: Normal Breath Sounds, No Rhonchi, No Wheezing Gastrointestinal/Abdominal: Soft, Other (abdomen is obese) Extremity: Other (Right great toe is missing, right second and third are edematous and sausage-like with foul smelling discharge. 4cm ulcer on the plantar aspect of the right foot. ) Neurological/Psych: Oriented x3, Normal Speech, Normal Cognition, Normal Cranial Nerves, Normal Motor, Normal Sensation ED Course And Treatment - Laboratory Results Result Diagrams: 09/23/16 16:01 09/23/16 16:01 Lab Interpretation: Abnormal (vbg neg, trop neg, ++ elev glu) ECG: Interpreted By Me ECG Rhythm: Sinus Tachycardia ECG Interpretation: Abnormal Rate From EC O2 Sat by Pulse Oximetry: 97 Pulse Ox Interpretation: Normal - Radiology CXR: Interpreted by Me CXR Interpretation: Yes: No Acute Disease - Other Rad R foot X-Ray: Interpreted by Me (+ STS, no osto, no gas) Progress Note: Percocet, toradol, zosyn, vanco, ivf, insulin Reevaluation Time: 17:15 Reassessment Condition: Improved - Physician Consult Information Outcome Of Conversation: [id number]: d/w Dr. Del Valle- sonya to Obs. Medical Decision Making Medical Decision Making: acute on chronic R toe/foot wound/cellulitis with prior R great toe amputation uncontrolled DM fever and leukocytosis but no elevated lactate level Consider consult w Dr. 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 Disposition Doctor Will See Patient In The: Hospital Counseled Patient/Family Regarding: Studies Performed, Diagnosis - Disposition Disposition: HOSPITALIZED Disposition Time: 17:17 Condition: GOOD - Clinical Impression Clinical Impression: Diabetic foot ulcer, Uncontrolled diabetes mellitus - Scribe Statement The provider has reviewed the documentation as recorded by the Madhavibasuncion Spence All medical record entries made by the Madhavibasuncion were at my direction and personally dictated by me. I have reviewed the chart and agree that the record accurately reflects my personal performance of the history, physical exam, medical decision making, and the department course for this patient. I have also personally directed, reviewed, and agree with the discharge instructions and disposition.
--- NOTE | 2016-09-23 17:37 | RAD ---
HISTORY: adm COMPARISON: 07/05/2016. FINDINGS: LUNGS: There is subsegmental atelectasis in the right lower lobe. The left lung is clear. PLEURA: There is a small right pleural effusion. No left pleural effusion. No pneumothorax. CARDIOVASCULAR: Normal. OSSEOUS STRUCTURES: No significant abnormalities. VISUALIZED UPPER ABDOMEN: Normal. OTHER FINDINGS: None. IMPRESSION: Small right pleural effusion.
[2016-09-23] MEDS ORDERED: (Novolin R) Insulin Human Regular 100 units/ml vial ONE ×2 (17:46→19:26)
[2016-09-23] MEDS ORDERED: Vancomycin 1 GM 1 GM/250 ML BAG IVPB ONE (17:47)
[2016-09-23] MEDS ORDERED: CHOLECALCIFEROL 1.25 MG PO SCH (22:15)
[2016-09-23] MEDS: Piperacill/Tazo 3.375gm in Dex 3.375 GM/50 ML BAG IVPB SCH (22:54)
[2016-09-24] MEDS ORDERED: Benzocaine/Menthol (Cepacol) Lozenge MT STA (04:49)
[2016-09-24] MEDS: Piperacill/Tazo 3.375gm in Dex 3.375 GM/50 ML BAG IVPB SCH ×4 (04:57→21:38)
[2016-09-24] MEDS: Oxycodone/Acetaminophen 5/325 mg Tab PO PRN ×2 (05:01→14:18)
[2016-09-24] MEDS: GlipiZIDE 10 mg SR Tab PO SCH ×2 (09:33→17:48)
[2016-09-24] MEDS: Pantoprazole 40 mg EC Tab PO SCH (09:33)
[2016-09-24] MEDS ORDERED: INSULIN ASPART 30 UNIT SQ SCH ×2 (09:45→10:00)
[2016-09-24] MEDS: (Novolog) Insulin Aspart, Recombinant 100 u/ml 10 ml vial SC SCH ×3 (10:41→17:52)
[2016-09-24] MEDS: Vancomycin 1 gm/NS 200 ml 1 GM/200 ML BAG IVPB SCH ×2 (11:04→21:39)
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
[2016-09-24 15:21] LABS: SQUAMOUS EPITHIAL < 1 /hpf (0-5); URINE AMORPHOUS SEDIMENT FEW /ul (<OCC); URINE BILIRUBIN NEGATIVE (NEGATIVE); URINE BLOOD 1+ (NEGATIVE); URINE CLARITY Hazy (Clear); URINE COLOR Yellow (YELLOW); URINE GLUCOSE (UA) 3+ mg/dL (Normal); URINE LEUKOCYTE ESTERASE NEG Leu/uL (Negative); URINE NITRATE NEGATIVE (NEGATIVE); URINE PROTEIN 2+ mg/dL (NEGATIVE); URINE UROBILINOGEN NORMAL mg/dL (0.2-1.0)
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
[2016-09-24] MEDS: (Lantus) Insulin Glargine, Recombinant SC SCH (21:39)
[2016-09-25] MEDS: Piperacill/Tazo 3.375gm in Dex 3.375 GM/50 ML BAG IVPB SCH (04:38)
--- NOTE | 2016-09-25 05:54 | HP ---
HISTORY OF PRESENT ILLNESS: A 56-year-old male with chief complaint of pain, fever, chills, pain in the foot. The patient has history of diabetic foot infection. 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 The patient came to the ER and advised admission. PHYSICAL EXAMINATION: GENERAL: The patient is awake, alert, and oriented. VITAL SIGNS: Temperature 100, pulse 90. HEENT: Within normal limits. NECK: Supple. CHEST: Symmetrical. HEART: Regular. ABDOMEN: Soft. EXTREMITIES: There is extreme change in the foot . IMPRESSION AND PLAN: The patient suffers from . The patient gets IV antibiotic, Podiatry consult, ID consult for the IV vancomycin and Zosyn. Ashia Blake MD
[2016-09-25 06:29] LABS: BENZODIAZEPINES, UR NEGATIVE (NEGATIVE)
[2016-09-25 06:30] LABS: PHENCYCLIDINE, UR NEGATIVE (NEGATIVE)
[2016-09-25 06:38] LABS: BARBITURATES, UR NEGATIVE (NEGATIVE)
[2016-09-25 07:02] LABS: OPIATES, UR NEGATIVE (NEGATIVE)
[2016-09-25 07:15] LABS: BASO % 0.3 % (0.0-2.0); EOS # 0.3 K/uL (0.0-0.7); EOS % 4.1 % (0.0-4.0); HEMOGLOBIN 11.1 g/dL (12.0-18.0); LYMPH # 0.5 K/uL (1.0-4.3); LYMPH % 5.7 % (20.0-40.0); MEAN CELL VOLUME 77.1 fL (80.0-94.0); MEAN CORPUSCULAR HEMOGLOBIN 24.9 pg (27.0-31.0); MEAN CORPUSCULAR HGB CONC 32.3 g/dL (33.0-37.0); MEAN PLATELET VOLUME 9.1 fL (7.2-11.7); MONO # 0.9 K/uL (0.0-0.8); MONO % 10.7 % (0.0-10.0); NEUT # 6.3 K/uL (1.8-7.0); NEUT % 79.2 % (50.0-75.0); PLATELET COUNT 194 K/uL (130-400); RBC 4.47 Mil/uL (4.40-5.90); RED CELL DISTRIBUTION WIDTH 18.5 % (11.5-14.5)
[2016-09-25 07:25] LABS: ALBUMIN 3.2 g/dL (3.5-5.0)
[2016-09-25 07:28] LABS: ALB/GLOB RATIO 0.8 (1.0-2.1); CALCIUM 9.4 mg/dl (8.6-10.4)
[2016-09-25] MEDS: (Novolog) Insulin Aspart, Recombinant 100 u/ml 10 ml vial SC SCH ×3 (08:25→17:30)
[2016-09-25 08:37] LABS: ANISOCYTOSIS SLIGHT; BANDS 1 % (0-2); EOSINOPHIL 6 % (0-4); LYMPHOCYTE 9 % (20-40); MONOCYTE 7 % (0-10); NEUTROPHIL 77 % (50-75); PLATELET ESTIMATE NORMAL (NORMAL); POIKILOCYTOSIS SLIGHT; TOTAL CELLS COUNTED 100
[2016-09-25 08:38] LABS: HYPOCHROMIC SLIGHT; OVALOCYTES SLIGHT; TEARDROP CELLS SLIGHT
[2016-09-25] MEDS: Pantoprazole 40 mg EC Tab PO SCH (09:20)
[2016-09-25] MEDS: GlipiZIDE 10 mg SR Tab PO SCH ×3 (09:21→18:15)
[2016-09-25] MEDS ORDERED: Vancomycin 1 gm/NS 200 ml 1 GM/200 ML BAG IVPB SCH (10:00)
[2016-09-25] MEDS: Vancomycin 1 gm/NS 200 ml 1 GM/200 ML BAG IVPB SCH (11:24)
[2016-09-25] MEDS: Piperacill/Tazo 2.25gm in Dex 2.25 GM/50 ML BAG IVPB SCH ×3 (11:24→22:34)
--- NOTE | 2016-09-25 11:34 | CP.PCM.PN ---
Subjective - Date & Time of Evaluation Date of Evaluation: 09/25/16 Time of Evaluation: 08:00 - Subjective Subjective: blood growing cocci in chains IV rx in progress Vanco level high- willl hold add zyvox Objective - Vital Signs/Intake and Output Vital Signs (last 24 hours): Temp Pulse Resp BP Pulse Ox 98.3 F 78 20 132/76 97 09/25/16 07:25 09/25/16 07:25 09/25/16 07:25 09/25/16 09:20 09/25/16 07:25 Intake and Output: 09/25/16 09/25/16 06:59 18:59 Intake Total 1180 Output Total 600 Balance 580 - Medications Medications: Current Medications Amlodipine Besylate (Norvasc) 5 mg PO HS [facility] Last Admin: 09/24/16 21:38 Dose: 5 mg Aspirin (Ecotrin) 81 mg PO DAILY [facility] Last Admin: 09/25/16 09:20 Dose: 81 mg Cinacalcet (Sensipar) 30 mg PO DAILY [facility] Last Admin: 09/25/16 09:20 Dose: 30 mg Cyclobenzaprine HCl (Flexeril) 5 mg PO HS [facility] Last Admin: 09/24/16 21:36 Dose: 5 mg Ergocalciferol (Drisdol 50,000 Intl Units Cap) 1 cap PO QWK [facility] Furosemide (Lasix) 40 mg PO BID [facility] Last Admin: 09/25/16 09:20 Dose: 40 mg Gabapentin (Neurontin) 100 mg PO TID [facility] Last Admin: 09/25/16 09:21 Dose: 100 mg Glipizide (Glucotrol Xl) 10 mg PO BID [facility] Last Admin: 09/25/16 10:43 Dose: Not Given Heparin Sodium (Porcine) (Heparin) 5,000 units SC Q12 [facility] Last Admin: 09/25/16 10:41 Dose: 5,000 units Piperacillin Sod/Tazobactam Sod (Zosyn 2.25 Gm Iv Premix) 2.25 gm in 50 mls @ 100 mls/hr IVPB Q6H [facility] Last Admin: 09/25/16 11:24 Dose: 100 mls/hr Insulin Aspart (Novolog) 30 unit SC TIDAC [facility] Last Admin: 09/25/16 08:25 Dose: 30 unit Insulin Glargine (Lantus) 55 unit SC HS [facility] Last Admin: 09/24/16 21:39 Dose: 55 units Mycophenolate Mofetil (Cellcept) 500 mg PO BID [facility] Last Admin: 09/25/16 09:20 Dose: 500 mg Oxycodone/Acetaminophen (Percocet 5/325 Mg Tab) 1 tab PO Q6 PRN PRN Reason: Pain, severe (8-10) Stop: 09/26/16 22:09 Last Admin: 09/24/16 14:18 Dose: 1 tab Pantoprazole Sodium (Protonix Ec Tab) 40 mg PO DAILY [facility] Last Admin: 09/25/16 09:20 Dose: 40 mg Prednisone (Prednisone Tab) 5 mg PO [facility] Last Admin: 09/24/16 21:36 Dose: 5 mg Rosuvastatin Calcium (Crestor) 10 mg PO [facility] Last Admin: 09/24/16 21:35 Dose: 10 mg Sitagliptin Phosphate (Januvia) 50 mg PO DAILY [facility] Last Admin: 09/25/16 09:20 Dose: 50 mg Tacrolimus (Prograf Cap) 1 mg PO Q12 [facility] Last Admin: 09/25/16 09:20 Dose: 1 mg - Labs Labs: 09/25/16 07:04 09/25/16 07:04 PT 13.6 SECONDS (9.7-12.2) H 09/23/16 16:01 INR 1.2 09/23/16 16:01 APTT 30 SECONDS (21-34) 09/23/16 16:01 - Constitutional Appears: Non-toxic, Chronically Ill - Head Exam Head Exam: NORMOCEPHALIC - ENT Exam ENT Exam: Mucous Membranes Dry - Neck Exam Neck Exam: absent: Lymphadenopathy - Respiratory Exam Respiratory Exam: Decreased Breath Sounds - Cardiovascular Exam Cardiovascular Exam: REGULAR RHYTHM - GI/Abdominal Exam GI & Abdominal Exam: Distended Assessment and Plan (1) Diabetic foot ulcer Status: Acute (2) Uncontrolled diabetes mellitus Status: Acute (3) Abscess Status: Acute (4) Acute on chronic diastolic CHF (congestive heart failure), NYHA class 3 Status: Acute (5) Acute renal failure Status: Acute (6) CKD (chronic kidney disease) stage 5, GFR less than 15 ml/min Status: Acute (7) Cellulitis and abscess of foot Status: Acute (8) Chronic kidney disease, stage III (moderate) Status: Acute (9) Congestive heart failure Status: Acute (10) Diabetes mellitus type 2 in obese Status: Acute (11) Osteomyelitis Status: Acute (12) Diabetes mellitus Status: Chronic (13) History of kidney transplant Status: Chronic (14) Renal insufficiency Status: Chronic
--- NOTE | 2016-09-25 11:46 | CP.PCM.PN ---
Subjective - Date & Time of Evaluation Date of Evaluation: 09/25/16 Time of Evaluation: 11:44 - Subjective Subjective: 56 year old male seen at bedside for right foot plantar ulceration with 1st interspace maceration. Patient has history of bilateral foot ulcerations with several digital amputations present. Patient denies any acute events overnight. Patient denies n/v/f/c/sob at this time. Objective - Vital Signs/Intake and Output Vital Signs (last 24 hours): Temp Pulse Resp BP Pulse Ox 98.3 F 78 20 132/76 97 09/25/16 07:25 09/25/16 07:25 09/25/16 07:25 09/25/16 09:20 09/25/16 07:25 Intake and Output: 09/25/16 09/25/16 06:59 18:59 Intake Total 1180 Output Total 600 Balance 580 - Medications Medications: Current Medications Amlodipine Besylate (Norvasc) 5 mg PO HS [facility] Last Admin: 09/24/16 21:38 Dose: 5 mg Aspirin (Ecotrin) 81 mg PO DAILY [facility] Last Admin: 09/25/16 09:20 Dose: 81 mg Cinacalcet (Sensipar) 30 mg PO DAILY [facility] Last Admin: 09/25/16 09:20 Dose: 30 mg Ergocalciferol (Drisdol 50,000 Intl Units Cap) 1 cap PO QWK [facility] Furosemide (Lasix) 40 mg PO BID [facility] Last Admin: 09/25/16 09:20 Dose: 40 mg Gabapentin (Neurontin) 100 mg PO TID [facility] Last Admin: 09/25/16 09:21 Dose: 100 mg Glipizide (Glucotrol Xl) 10 mg PO BID [facility] Last Admin: 09/25/16 10:43 Dose: Not Given Heparin Sodium (Porcine) (Heparin) 5,000 units SC Q12 [facility] Last Admin: 09/25/16 10:41 Dose: 5,000 units Piperacillin Sod/Tazobactam Sod (Zosyn 2.25 Gm Iv Premix) 2.25 gm in 50 mls @ 100 mls/hr IVPB Q6H [facility] Last Admin: 09/25/16 11:24 Dose: 100 mls/hr Insulin Aspart (Novolog) 30 unit SC TIDAC [facility] Last Admin: 09/25/16 08:25 Dose: 30 unit Insulin Glargine (Lantus) 55 unit SC [facility] Last Admin: 09/24/16 21:39 Dose: 55 units Mycophenolate Mofetil (Cellcept) 500 mg PO BID [facility] Last Admin: 09/25/16 09:20 Dose: 500 mg Oxycodone/Acetaminophen (Percocet 5/325 Mg Tab) 1 tab PO Q6 PRN PRN Reason: Pain, severe (8-10) Stop: 09/26/16 22:09 Last Admin: 09/24/16 14:18 Dose: 1 tab Pantoprazole Sodium (Protonix Ec Tab) 40 mg PO DAILY [facility] Last Admin: 09/25/16 09:20 Dose: 40 mg Prednisone (Prednisone Tab) 5 mg PO [facility] Last Admin: 09/24/16 21:36 Dose: 5 mg Rosuvastatin Calcium (Crestor) 10 mg PO [facility] Last Admin: 09/24/16 21:35 Dose: 10 mg Sitagliptin Phosphate (Januvia) 50 mg PO DAILY [facility] Last Admin: 09/25/16 09:20 Dose: 50 mg Tacrolimus (Prograf Cap) 1 mg PO Q12 [facility] Last Admin: 09/25/16 09:20 Dose: 1 mg - Labs Labs: 09/25/16 07:04 09/25/16 07:04 PT 13.6 SECONDS (9.7-12.2) H 09/23/16 16:01 INR 1.2 09/23/16 16:01 APTT 30 SECONDS (21-34) 09/23/16 16:01 - Constitutional Appears: Well, Non-toxic, No Acute Distress - Extremities Exam Additional comments: Right lower extremity focused examination: Vasc: DP 2/4, PT non-palpable due to non-pitting perimalleolar edema. CFT < 3 sec to all digits. Temperature gradient warm to warm from proximal to distal. Derm: 1.5 x 1.5cm circular ulceration present sub met 2 of plantar foot. Fibrotic base with mild purulent drainage noted. No malodor, no fluctuance, no tunneling, no undermining. Adjacent maceration with skin break in 1st interspace. No malodor, no drainage, no fluctuance, no undermining, no probe to bone. Neuro: Protective sensation grossly diminished Ortho: No pain on palpation of right foot in area of ulcerations - Neurological Exam Neurological Exam: Alert, Awake, Oriented x3 - Psychiatric Exam Psychiatric exam: Normal Affect, Normal Mood Assessment and Plan - Assessment and Plan (Free Text) Assessment: 56 y/o male with right sub met 2 plantar ulceration and 1st interspace ulceration secondary to DM Plan: Pt seen and evaluated at bedside discussed in detail with attending Dr. Sanchez labs and vitals reviewed; WBC 8.0 Ordered MRI of R foot for possible OM of 2nd met head Continue IV Vanco/Zosyn as per ID Pt to go to [place] sometime this week pending MRI results Podiatry will continue to follow while in house
--- NOTE | 2016-09-25 13:20 | CP.PCM.PN ---
Subjective - Date & Time of Evaluation Date of Evaluation: 09/25/16 Time of Evaluation: 13:17 - Subjective Subjective: Medicine progress note Dr. Blake's Service 56 year old male with PMHx of HTN, DM and renal transplant on steroid therapy, who presented with dyspnea. Pt was seen an examined at bedside. He states that he has been unable to take his meds prior to admission because they were transported to his new home in [place] and he no longer had any here in [place]. Additionally patient reports having odorous dischare from wound on RLE. Patient denies n/v/f/c/sob at this time. He was started on Vancomycin and Zosyn, in conjunction with blood cultures for S. Aureus. ID, Dr. Mancia, has been seeing patient. Vanc troph is elevated and vancomycin dose has been held. Objective - Vital Signs/Intake and Output Vital Signs (last 24 hours): Temp Pulse Resp BP Pulse Ox 98.3 F 78 20 132/76 97 09/25/16 07:25 09/25/16 07:25 09/25/16 07:25 09/25/16 09:20 09/25/16 07:25 Intake and Output: 09/25/16 09/25/16 06:59 18:59 Intake Total 1180 Output Total 600 Balance 580 - Medications Medications: Current Medications Amlodipine Besylate (Norvasc) 5 mg PO HS [facility] Last Admin: 09/24/16 21:38 Dose: 5 mg Aspirin (Ecotrin) 81 mg PO DAILY [facility] Last Admin: 09/25/16 09:20 Dose: 81 mg Cinacalcet (Sensipar) 30 mg PO DAILY [facility] Last Admin: 09/25/16 09:20 Dose: 30 mg Ergocalciferol (Drisdol 50,000 Intl Units Cap) 1 cap PO QWK [facility] Furosemide (Lasix) 40 mg PO BID [facility] Last Admin: 09/25/16 09:20 Dose: 40 mg Gabapentin (Neurontin) 100 mg PO TID [facility] Last Admin: 09/25/16 09:21 Dose: 100 mg Glipizide (Glucotrol Xl) 10 mg PO BID [facility] Last Admin: 09/25/16 10:43 Dose: Not Given Heparin Sodium (Porcine) (Heparin) 5,000 units SC Q12 [facility] Last Admin: 09/25/16 10:41 Dose: 5,000 units Piperacillin Sod/Tazobactam Sod (Zosyn 2.25 Gm Iv Premix) 2.25 gm in 50 mls @ 100 mls/hr IVPB Q6H [facility] Last Admin: 09/25/16 11:24 Dose: 100 mls/hr Insulin Aspart (Novolog) 30 unit SC TIDAC [facility] Last Admin: 09/25/16 12:23 Dose: 30 unit Insulin Glargine (Lantus) 55 unit SC HS [facility] Last Admin: 09/24/16 21:39 Dose: 55 units Mycophenolate Mofetil (Cellcept) 500 mg PO BID [facility] Last Admin: 09/25/16 09:20 Dose: 500 mg Oxycodone/Acetaminophen (Percocet 5/325 Mg Tab) 1 tab PO Q6 PRN PRN Reason: Pain, severe (8-10) Stop: 09/26/16 22:09 Last Admin: 09/24/16 14:18 Dose: 1 tab Pantoprazole Sodium (Protonix Ec Tab) 40 mg PO DAILY [facility] Last Admin: 09/25/16 09:20 Dose: 40 mg Prednisone (Prednisone Tab) 5 mg PO HS [facility] Last Admin: 09/24/16 21:36 Dose: 5 mg Rosuvastatin Calcium (Crestor) 10 mg PO HS [facility] Last Admin: 09/24/16 21:35 Dose: 10 mg Sitagliptin Phosphate (Januvia) 50 mg PO DAILY [facility] Last Admin: 09/25/16 09:20 Dose: 50 mg Tacrolimus (Prograf Cap) 1 mg PO Q12 [facility] Last Admin: 09/25/16 09:20 Dose: 1 mg - Labs Labs: 09/25/16 07:04 09/25/16 07:04 PT 13.6 SECONDS (9.7-12.2) H 09/23/16 16:01 INR 1.2 09/23/16 16:01 APTT 30 SECONDS (21-34) 09/23/16 16:01 - Head Exam Head Exam: ATRAUMATIC, NORMOCEPHALIC - Eye Exam Eye Exam: EOMI, Normal appearance - ENT Exam ENT Exam: Mucous Membranes Moist - Respiratory Exam Respiratory Exam: Clear to Ausculation Bilateral - Cardiovascular Exam Cardiovascular Exam: REGULAR RHYTHM - GI/Abdominal Exam GI & Abdominal Exam: Soft. absent: Tenderness - Extremities Exam Additional comments: 2/4 DP pulses Wound dressing is c/d/i - Neurological Exam Neurological Exam: Alert, Awake, Oriented x3 Assessment and Plan - Assessment and Plan (Free Text) Plan: Right Lower extremity wound Foot xray shows no evidence of OM Follow up MRI foot Continue with IV abx as per ID- vanco and zosyn. Vanco held today due to high blood levels. Podiatry on board- recs appreciated Patient will likely go to OR pending results of MRI Bacteremia Blood culture positive for gram + cocci in clusters- follow up ID Continue IV abx as per ID recommendations Continue zosyn Vancomycin held today HTN- controlled with meds continue home meds: norvasc, lasix DM- controlled with meds continue insulin and glipizide Neuropathy continue with gabapentin, flexeril and oxycodon s/p renal transplant continue with cellcept and prednisone Prophylaxis Pepcid
[2016-09-25] MEDS ORDERED: Sod Polystyrene Sulf 15 gm/60 ml Oral Susp PO ONE (18:53)
[2016-09-25] MEDS: (Lantus) Insulin Glargine, Recombinant SC SCH (22:34)
[2016-09-25] MEDS: Oxycodone/Acetaminophen 5/325 mg Tab PO PRN (22:50)
[2016-09-26] MEDS: Piperacill/Tazo 2.25gm in Dex 2.25 GM/50 ML BAG IVPB SCH ×4 (03:32→21:37)
[2016-09-26 06:08] LABS: BASO % 0.6 % (0.0-2.0); EOS # 0.4 K/uL (0.0-0.7); HEMOGLOBIN 10.8 g/dL (12.0-18.0); LYMPH # 0.5 K/uL (1.0-4.3); LYMPH % 6.7 % (20.0-40.0); MEAN CELL VOLUME 76.4 fL (80.0-94.0); MEAN CORPUSCULAR HEMOGLOBIN 24.7 pg (27.0-31.0); MEAN CORPUSCULAR HGB CONC 32.3 g/dL (33.0-37.0); MEAN PLATELET VOLUME 8.8 fL (7.2-11.7); MONO # 0.8 K/uL (0.0-0.8); MONO % 9.5 % (0.0-10.0); NEUT # 6.3 K/uL (1.8-7.0); NEUT % 78.2 % (50.0-75.0); PLATELET COUNT 210 K/uL (130-400); RBC 4.37 Mil/uL (4.40-5.90); RED CELL DISTRIBUTION WIDTH 18.2 % (11.5-14.5); WHITE BLOOD COUNT 8.1 K/uL (4.8-10.8)
[2016-09-26 06:24] LABS: ALB/GLOB RATIO 0.7 (1.0-2.1)
[2016-09-26 06:25] LABS: CALCIUM 9.1 mg/dl (8.6-10.4)
[2016-09-26 08:15] LABS: BANDS 1 % (0-2); EOSINOPHIL 6 % (0-4); LYMPHOCYTE 8 % (20-40); MONOCYTE 4 % (0-10); NEUTROPHIL 81 % (50-75); TOTAL CELLS COUNTED 100
[2016-09-26 08:16] LABS: ANISOCYTOSIS SLIGHT; HYPOCHROMIC SLIGHT; MICROCYTOSIS SLIGHT; PLATELET ESTIMATE NORMAL (NORMAL); POLYCHROMIC SLIGHT
[2016-09-26] MEDS: (Novolog) Insulin Aspart, Recombinant 100 u/ml 10 ml vial SC SCH ×3 (08:32→17:47)
--- NOTE | 2016-09-26 09:29 | CP.PCM.PN ---
<Lissette Santos - Last Filed: 09/26/16 14:14> Subjective - Date & Time of Evaluation Date of Evaluation: 09/26/16 Time of Evaluation: 09:27 - Subjective Subjective: 56 year old male was seen with attending, Dr. Sanchez for right foot plantar ulceration with 1st interspace maceration. Patient is aware that he may need another right foot surgery this week. Patient denies any acute events overnight. Patient denies n/v/f/c/sob at this time. Objective - Vital Signs/Intake and Output Vital Signs (last 24 hours): Temp Pulse Resp BP Pulse Ox 98 F 74 20 156/89 H 99 09/26/16 07:00 09/26/16 07:00 09/26/16 07:00 09/26/16 07:00 09/26/16 07:00 Intake and Output: 09/26/16 09/26/16 06:59 18:59 Intake Total 500 Output Total 800 Balance -300 - Medications Medications: Current Medications Amlodipine Besylate (Norvasc) 5 mg PO HS [facility] Last Admin: 09/25/16 22:33 Dose: 5 mg Aspirin (Ecotrin) 81 mg PO DAILY [facility] Last Admin: 09/25/16 09:20 Dose: 81 mg Cinacalcet (Sensipar) 30 mg PO DAILY [facility] Last Admin: 09/25/16 09:20 Dose: 30 mg Ergocalciferol (Drisdol 50,000 Intl Units Cap) 1 cap PO QWK [facility] Furosemide (Lasix) 40 mg PO BID [facility] Last Admin: 09/25/16 18:15 Dose: 40 mg Gabapentin (Neurontin) 100 mg PO TID [facility] Last Admin: 09/25/16 18:15 Dose: 100 mg Glipizide (Glucotrol Xl) 10 mg PO BID [facility] Last Admin: 09/25/16 18:15 Dose: 10 mg Heparin Sodium (Porcine) (Heparin) 5,000 units SC Q12 [facility] Last Admin: 09/25/16 22:34 Dose: 5,000 units Piperacillin Sod/Tazobactam Sod (Zosyn 2.25 Gm Iv Premix) 2.25 gm in 50 mls @ 100 mls/hr IVPB Q6H [facility] Last Admin: 09/26/16 03:32 Dose: 100 mls/hr Insulin Aspart (Novolog) 30 unit SC TIDAC [facility] Last Admin: 09/26/16 08:32 Dose: 30 unit Insulin Glargine (Lantus) 55 unit SC HS [facility] Last Admin: 09/25/16 22:34 Dose: 55 units Mycophenolate Mofetil (Cellcept) 500 mg PO BID [facility] Last Admin: 09/25/16 18:14 Dose: 500 mg Oxycodone/Acetaminophen (Percocet 5/325 Mg Tab) 1 tab PO Q6 PRN PRN Reason: Pain, severe (8-10) Stop: 09/26/16 22:09 Last Admin: 09/25/16 22:50 Dose: 1 tab Pantoprazole Sodium (Protonix Ec Tab) 40 mg PO DAILY [facility] Last Admin: 09/25/16 09:20 Dose: 40 mg Prednisone (Prednisone Tab) 5 mg PO HS [facility] Last Admin: 09/25/16 22:33 Dose: 5 mg Rosuvastatin Calcium (Crestor) 10 mg PO [facility] Last Admin: 09/25/16 22:33 Dose: 10 mg Sitagliptin Phosphate (Januvia) 50 mg PO DAILY [facility] Last Admin: 09/25/16 09:20 Dose: 50 mg Tacrolimus (Prograf Cap) 1 mg PO Q12 [facility] Last Admin: 09/25/16 22:33 Dose: 1 mg - Labs Labs: 09/26/16 05:59 09/26/16 05:59 PT 13.6 SECONDS (9.7-12.2) H 09/23/16 16:01 INR 1.2 09/23/16 16:01 APTT 30 SECONDS (21-34) 09/23/16 16:01 - Constitutional Appears: Well, Non-toxic, No Acute Distress - Extremities Exam Additional comments: Right lower extremity focused examination: Vasc: DP pulses 2/4, PT pulses non-palpable due to non-pitting perimalleolar edema. CFT < 3 sec to all digits. Temperature gradient warm to warm from proximal to distal. Derm: An approximately 1.5 cm x 1.5 cm x 0.3 cm ulceration noted sub second metatarsal head of plantar foot. base is fibrotic. No malodor, no fluctuance, no tunneling, no drainage, no undermining noted. Adjacent maceration with skin break in 1st interspace. No malodor, no drainage, no fluctuance, no undermining , no probe to bone. Neuro: Protective sensation grossly diminished Ortho: No pain on palpation of right foot in area of ulcerations - Neurological Exam Neurological Exam: Alert, Awake, Oriented x3 - Psychiatric Exam Psychiatric exam: Normal Affect, Normal Mood Assessment and Plan - Assessment and Plan (Free Text) Assessment: 56 y/o male with right sub met 2 plantar ulceration and 1st interspace ulceration secondary to DM Plan: Patient seen and examined with attending, Dr. Sanchez Lab, chart, vitals reviewed r foot dressed with xeroform, DSD bone scan results pending Continue IV abx as per ID Medical optimization needed as pt to OR Sunday at 3:30 pm for right 2nd metatarsal head resection podiatry will continue to follow patient while in house <Thaddeus Sanchez - Last Filed: 09/27/16 17:17> Subjective - Subjective Subjective: pt seen at bedside with resident . wound due to long met 2 . getting bone scan r /o om. Objective - Vital Signs/Intake and Output Vital Signs (last 24 hours): Temp Pulse Resp BP Pulse Ox 98.6 F 97 H 20 114/76 96 09/27/16 15:06 09/27/16 15:06 09/27/16 15:06 09/27/16 15:06 09/27/16 15:06 Intake and Output: 09/27/16 09/27/16 06:59 18:59 Intake Total 750 Balance 750 - Medications Medications: Current Medications Amlodipine Besylate (Norvasc) 5 mg PO HS [facility] Last Admin: 09/26/16 21:40 Dose: 5 mg Aspirin (Ecotrin) 81 mg PO DAILY [facility] Last Admin: 09/27/16 09:56 Dose: Not Given Cinacalcet (Sensipar) 30 mg PO DAILY [facility] Last Admin: 09/27/16 09:52 Dose: 30 mg Ergocalciferol (Drisdol 50,000 Intl Units Cap) 1 cap PO QWK [facility] Gabapentin (Neurontin) 100 mg PO TID [facility] Last Admin: 09/27/16 14:24 Dose: 100 mg Glipizide (Glucotrol Xl) 10 mg PO BID [facility] Last Admin: 09/26/16 17:49 Dose: 10 mg Heparin Sodium (Porcine) (Heparin) 5,000 units SC Q12 [facility] Last Admin: 09/26/16 09:48 Dose: 5,000 units Piperacillin Sod/Tazobactam Sod (Zosyn 2.25 Gm Iv Premix) 2.25 gm in 50 mls @ 100 mls/hr IVPB Q6H [facility] Last Admin: 09/27/16 16:30 Dose: 100 mls/hr Insulin Aspart (Novolog) 30 unit SC TIDAC [facility] Last Admin: 09/27/16 14:24 Dose: 30 unit Insulin Glargine (Lantus) 60 unit SC HS [facility] Mycophenolate Mofetil (Cellcept) 500 mg PO BID [facility] Last Admin: 09/27/16 09:52 Dose: 500 mg Oxycodone/Acetaminophen (Percocet 5/325 Mg Tab) 1 tab PO Q8 PRN PRN Reason: Pain, severe (8-10) Stop: 09/30/16 16:31 Last Admin: 09/27/16 16:27 Dose: 1 tab Pantoprazole Sodium (Protonix Ec Tab) 40 mg PO DAILY [facility] Last Admin: 09/27/16 09:57 Dose: Not Given Prednisone (Prednisone Tab) 5 mg PO HS [facility] Last Admin: 09/26/16 21:39 Dose: 5 mg Rosuvastatin Calcium (Crestor) 10 mg PO [facility] Last Admin: 09/26/16 21:39 Dose: 10 mg Sitagliptin Phosphate (Januvia) 50 mg PO DAILY [facility] Last Admin: 09/26/16 09:47 Dose: 50 mg Tacrolimus (Prograf Cap) 1 mg PO Q12 [facility] Last Admin: 09/27/16 09:52 Dose: 1 mg - Labs Labs: 09/27/16 05:53 09/27/16 05:53 PT 11.9 SECONDS (9.7-12.2) 09/27/16 05:53 INR 1.1 09/27/16 05:53 APTT 30 SECONDS (21-34) 09/27/16 05:53
[2016-09-26] MEDS: GlipiZIDE 10 mg SR Tab PO SCH ×2 (09:48→17:49)
[2016-09-26] MEDS: Pantoprazole 40 mg EC Tab PO SCH (09:48)
--- NOTE | 2016-09-26 10:18 | CP.PCM.PN ---
Subjective - Date & Time of Evaluation Date of Evaluation: 09/26/16 Time of Evaluation: 09:00 - Subjective Subjective: awake alert less pain to foot' no fever Objective - Vital Signs/Intake and Output Vital Signs (last 24 hours): Temp Pulse Resp BP Pulse Ox 98 F 74 20 151/85 H 99 09/26/16 07:00 09/26/16 07:00 09/26/16 07:00 09/26/16 09:48 09/26/16 07:00 Intake and Output: 09/26/16 09/26/16 06:59 18:59 Intake Total 500 Output Total 800 Balance -300 - Medications Medications: Current Medications Amlodipine Besylate (Norvasc) 5 mg PO HS [facility] Last Admin: 09/25/16 22:33 Dose: 5 mg Aspirin (Ecotrin) 81 mg PO DAILY [facility] Last Admin: 09/26/16 09:48 Dose: 81 mg Cinacalcet (Sensipar) 30 mg PO DAILY [facility] Last Admin: 09/26/16 09:50 Dose: 30 mg Ergocalciferol (Drisdol 50,000 Intl Units Cap) 1 cap PO QWK [facility] Furosemide (Lasix) 40 mg PO BID [facility] Last Admin: 09/26/16 09:48 Dose: 40 mg Gabapentin (Neurontin) 100 mg PO TID [facility] Last Admin: 09/26/16 09:47 Dose: 100 mg Glipizide (Glucotrol Xl) 10 mg PO BID [facility] Last Admin: 09/26/16 09:48 Dose: 10 mg Heparin Sodium (Porcine) (Heparin) 5,000 units SC Q12 [facility] Last Admin: 09/26/16 09:48 Dose: 5,000 units Piperacillin Sod/Tazobactam Sod (Zosyn 2.25 Gm Iv Premix) 2.25 gm in 50 mls @ 100 mls/hr IVPB Q6H [facility] Last Admin: 09/26/16 03:32 Dose: 100 mls/hr Insulin Aspart (Novolog) 30 unit SC TIDAC [facility] Last Admin: 09/26/16 08:32 Dose: 30 unit Insulin Glargine (Lantus) 55 unit SC HS [facility] Last Admin: 09/25/16 22:34 Dose: 55 units Mycophenolate Mofetil (Cellcept) 500 mg PO BID [facility] Last Admin: 09/26/16 09:49 Dose: 500 mg Oxycodone/Acetaminophen (Percocet 5/325 Mg Tab) 1 tab PO Q6 PRN PRN Reason: Pain, severe (8-10) Stop: 09/26/16 22:09 Last Admin: 09/25/16 22:50 Dose: 1 tab Pantoprazole Sodium (Protonix Ec Tab) 40 mg PO DAILY [facility] Last Admin: 09/26/16 09:48 Dose: 40 mg Prednisone (Prednisone Tab) 5 mg PO HS [facility] Last Admin: 09/25/16 22:33 Dose: 5 mg Rosuvastatin Calcium (Crestor) 10 mg PO HS [facility] Last Admin: 09/25/16 22:33 Dose: 10 mg Sitagliptin Phosphate (Januvia) 50 mg PO DAILY [facility] Last Admin: 09/26/16 09:47 Dose: 50 mg Tacrolimus (Prograf Cap) 1 mg PO Q12 [facility] Last Admin: 09/26/16 09:49 Dose: 1 mg - Labs Labs: 09/26/16 05:59 09/26/16 05:59 PT 13.6 SECONDS (9.7-12.2) H 09/23/16 16:01 INR 1.2 09/23/16 16:01 APTT 30 SECONDS (21-34) 09/23/16 16:01 - Constitutional Appears: Non-toxic, Chronically Ill - Head Exam Head Exam: NORMOCEPHALIC - Eye Exam Eye Exam: PERRL. absent: Scleral icterus - ENT Exam ENT Exam: Mucous Membranes Dry - Neck Exam Neck Exam: absent: Lymphadenopathy - Respiratory Exam Respiratory Exam: Decreased Breath Sounds - Cardiovascular Exam Cardiovascular Exam: REGULAR RHYTHM - GI/Abdominal Exam GI & Abdominal Exam: Distended, Soft - Rectal Exam Rectal Exam: Deferred - Exam Exam: NORMAL INSPECTION - Extremities Exam Extremities Exam: Pedal Edema, Tenderness - Back Exam Back Exam: absent: CVA tenderness (L), CVA tenderness (R) - Neurological Exam Neurological Exam: Alert, Awake, Oriented x3 - Psychiatric Exam Psychiatric exam: Normal Mood - Skin Skin Exam: Dry Assessment and Plan (1) Diabetic foot ulcer Status: Acute (2) Uncontrolled diabetes mellitus Status: Acute (3) Abscess Status: Acute (4) Acute on chronic diastolic CHF (congestive heart failure), NYHA class 3 Status: Acute (5) Acute renal failure Status: Acute (6) CKD (chronic kidney disease) stage 5, GFR less than 15 ml/min Status: Acute (7) Cellulitis and abscess of foot Status: Acute (8) Chronic kidney disease, stage III (moderate) Status: Acute (9) Congestive heart failure Status: Acute (10) Diabetes mellitus type 2 in obese Status: Acute (11) Osteomyelitis Status: Acute (12) Diabetes mellitus Status: Chronic (13) History of kidney transplant Status: Chronic (14) Renal insufficiency Status: Chronic - Assessment and Plan (Free Text) Assessment: 56 

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
[2016-09-26] MEDS: Oxycodone/Acetaminophen 5/325 mg Tab PO PRN ×2 (14:38→21:47)
--- NOTE | 2016-09-26 15:29 | CP.PCM.PN ---
Subjective - Date & Time of Evaluation Date of Evaluation: 09/26/16 Time of Evaluation: 15:28 - Subjective Subjective: Medicine progress note- Dr. Blake's Service Pt was seen an examined at bedside. He denies any acute changes in his clinical status. Patient denies n/v/f/c/sob at this time. He states that he is otherwise feeling well. Objective - Vital Signs/Intake and Output Vital Signs (last 24 hours): Temp Pulse Resp BP Pulse Ox 98 F 74 20 151/85 H 99 09/26/16 07:00 09/26/16 07:00 09/26/16 07:00 09/26/16 09:48 09/26/16 07:00 Intake and Output: 09/26/16 09/26/16 06:59 18:59 Intake Total 500 Output Total 800 Balance -300 - Medications Medications: Current Medications Amlodipine Besylate (Norvasc) 5 mg PO HS [facility] Last Admin: 09/25/16 22:33 Dose: 5 mg Aspirin (Ecotrin) 81 mg PO DAILY [facility] Last Admin: 09/26/16 09:48 Dose: 81 mg Cinacalcet (Sensipar) 30 mg PO DAILY [facility] Last Admin: 09/26/16 09:50 Dose: 30 mg Ergocalciferol (Drisdol 50,000 Intl Units Cap) 1 cap PO QWK [facility] Furosemide (Lasix) 40 mg PO BID [facility] Last Admin: 09/26/16 09:48 Dose: 40 mg Gabapentin (Neurontin) 100 mg PO TID [facility] Last Admin: 09/26/16 14:39 Dose: 100 mg Glipizide (Glucotrol Xl) 10 mg PO BID [facility] Last Admin: 09/26/16 09:48 Dose: 10 mg Heparin Sodium (Porcine) (Heparin) 5,000 units SC Q12 [facility] Last Admin: 09/26/16 09:48 Dose: 5,000 units Piperacillin Sod/Tazobactam Sod (Zosyn 2.25 Gm Iv Premix) 2.25 gm in 50 mls @ 100 mls/hr IVPB Q6H [facility] Last Admin: 09/26/16 10:56 Dose: 100 mls/hr Insulin Aspart (Novolog) 30 unit SC TIDAC [facility] Last Admin: 09/26/16 12:42 Dose: 30 unit Insulin Glargine (Lantus) 55 unit SC [facility] Last Admin: 09/25/16 22:34 Dose: 55 units Mycophenolate Mofetil (Cellcept) 500 mg PO BID [facility] Last Admin: 09/26/16 09:49 Dose: 500 mg Oxycodone/Acetaminophen (Percocet 5/325 Mg Tab) 1 tab PO Q6 PRN PRN Reason: Pain, severe (8-10) Stop: 09/26/16 22:09 Last Admin: 09/26/16 14:38 Dose: 1 tab Pantoprazole Sodium (Protonix Ec Tab) 40 mg PO DAILY [facility] Last Admin: 09/26/16 09:48 Dose: 40 mg Prednisone (Prednisone Tab) 5 mg PO [facility] Last Admin: 09/25/16 22:33 Dose: 5 mg Rosuvastatin Calcium (Crestor) 10 mg PO [facility] Last Admin: 09/25/16 22:33 Dose: 10 mg Sitagliptin Phosphate (Januvia) 50 mg PO DAILY [facility] Last Admin: 09/26/16 09:47 Dose: 50 mg Tacrolimus (Prograf Cap) 1 mg PO Q12 [facility] Last Admin: 09/26/16 09:49 Dose: 1 mg - Labs Labs: 09/26/16 05:59 09/26/16 05:59 PT 13.6 SECONDS (9.7-12.2) H 09/23/16 16:01 INR 1.2 09/23/16 16:01 APTT 30 SECONDS (21-34) 09/23/16 16:01 - Constitutional Appears: No Acute Distress - Head Exam Head Exam: ATRAUMATIC - Eye Exam Eye Exam: EOMI, Normal appearance - ENT Exam ENT Exam: Mucous Membranes Moist - Respiratory Exam Respiratory Exam: Clear to Ausculation Bilateral - Cardiovascular Exam Cardiovascular Exam: REGULAR RHYTHM - GI/Abdominal Exam GI & Abdominal Exam: Soft. absent: Distended, Tenderness - Extremities Exam Additional comments: wound dressing c/d/i +2 dp pulses - Neurological Exam Neurological Exam: Alert, Awake, Oriented x3 Assessment and Plan - Assessment and Plan (Free Text) Plan: Right Lower extremity wound Foot xray shows no evidence of OM MRI foot unable to be done due to AVR Bone scan done today- cellulitis of RLE w/o obvious osteomyeltitis Continue with IV abx as per ID- zosyn 2.25g IV Q6hrs Podiatry on board- recs appreciated Pt will need to go to [place] or sunday this week Bacteremia Blood culture positive B-hemolytic strep Continue IV abx as per ID recommendations Continue zosyn Vancomycin discontinued due to renal stats Pt is s/p AVR. Cardio consult placed to r/o endocarditis. Pt will be going for [facility] tomorrow with Dr. Lobo NPO at midnight hold AM doses of januvia and glipizide f/u AM labs HTN- controlled with meds continue home meds: norvasc, lasix DM- controlled with meds continue insulin, januvia and glipizide hold AM doses of glipizide and januvia for [facility] Neuropathy continue with gabapentin, flexeril and oxycodon s/p renal transplant continue with cellcept, Prograf, sensipar, ergocal and prednisone F/u prograf level Vancomycin discontinued Consult placed to Dr. Duggan Prophylaxis Protonix Heparin
--- NOTE | 2016-09-26 16:12 | US ---
PROCEDURE: Ultrasound of the Kidneys HISTORY: BRAYAN, renal transplant COMPARISON: None available. TECHNIQUE: Grayscale imaging was performed. FINDINGS: There is a transplant kidney in the right lower quadrant. The transplant kidney measures 14.3 cm and has normal contour with mild increased echogenicity. There is mild hydronephrosis. OTHER FINDINGS: None. IMPRESSION: Transplant kidney in the right lower quadrant with suspected medical renal disease. Mild hydronephrosis.
--- NOTE | 2016-09-26 16:16 | NM ---
PROCEDURE: Whole Body Bone Scan HISTORY: rule out OM right foot COMPARISON: 09/23/2016 plain film radiographs right foot. 03/10/2015 Bone scan attention lower extremities. TECHNIQUE: Following administration of 24.3 miCu of Tc MDP multiplanar whole body images were obtained. FINDINGS: Flow component: Intense increased flow to the right foot a finding identified on the prior nuclear medicine scan 03/08/2012. Blood pool component: Accumulation of radionuclide primarily within soft tissues medial aspect right foot. There is a component of blooming artifact which limits accuracy with respect to accumulation in osseous structures. Delayed images at 3:00: Retention of radionuclide at the surgical site, medial aspect right foot Other findings: None. IMPRESSION: No evidence of acute osseous process. Increased profusion right lower extremity compared to left and Intense accumulation of radionuclide within soft tissues medial aspect right foot compatible with cellulitis without obvious osteomyelitis.
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
[2016-09-26 19:48] LABS: URINE BILIRUBIN NEGATIVE (NEGATIVE); URINE BLOOD NEGATIVE (NEGATIVE); URINE CLARITY Clear (Clear); URINE COLOR Straw (YELLOW); URINE GLUCOSE (UA) 1+ mg/dL (Normal); URINE LEUKOCYTE ESTERASE NEG Leu/uL (Negative); URINE NITRATE NEGATIVE (NEGATIVE); URINE PROTEIN 1+ mg/dL (NEGATIVE); URINE UROBILINOGEN NORMAL mg/dL (0.2-1.0)
[2016-09-26] MEDS: (Lantus) Insulin Glargine, Recombinant SC SCH (21:41)
[2016-09-26] MEDS ORDERED: (Lantus) Insulin Glargine, Recombinant SC ONE (22:00)
[2016-09-27] MEDS: Piperacill/Tazo 2.25gm in Dex 2.25 GM/50 ML BAG IVPB SCH ×4 (03:26→21:56)
[2016-09-27 06:08] LABS: BASO % 0.5 % (0.0-2.0); EOS # 0.3 K/uL (0.0-0.7); EOS % 3.4 % (0.0-4.0); HEMOGLOBIN 11.6 g/dL (12.0-18.0); LYMPH # 0.6 K/uL (1.0-4.3); LYMPH % 6.1 % (20.0-40.0); MEAN CELL VOLUME 76.4 fL (80.0-94.0); MEAN CORPUSCULAR HEMOGLOBIN 24.3 pg (27.0-31.0); MEAN CORPUSCULAR HGB CONC 31.8 g/dL (33.0-37.0); MEAN PLATELET VOLUME 8.6 fL (7.2-11.7); MONO # 0.8 K/uL (0.0-0.8); MONO % 7.6 % (0.0-10.0); NEUT # 8.2 K/uL (1.8-7.0); NEUT % 82.4 % (50.0-75.0); PLATELET COUNT 250 K/uL (130-400); RBC 4.79 Mil/uL (4.40-5.90); RED CELL DISTRIBUTION WIDTH 18.5 % (11.5-14.5); WHITE BLOOD COUNT 9.9 K/uL (4.8-10.8)
[2016-09-27 06:11] LABS: INR 1.1; PROTHROMBIN TIME 11.9 SECONDS (9.7-12.2)
[2016-09-27 06:13] LABS: ALBUMIN 3.3 g/dL (3.5-5.0); CALCIUM 9.2 mg/dl (8.6-10.4)
[2016-09-27 06:21] LABS: ALB/GLOB RATIO 0.8 (1.0-2.1)
[2016-09-27] MEDS: (Novolog) Insulin Aspart, Recombinant 100 u/ml 10 ml vial SC SCH ×3 (07:44→17:31)
[2016-09-27 08:05] LABS: EOSINOPHIL 2 % (0-4); LYMPHOCYTE 8 % (20-40); MONOCYTE 4 % (0-10); NEUTROPHIL 86 % (50-75); TOTAL CELLS COUNTED 100
[2016-09-27 08:08] LABS: ANISOCYTOSIS SLIGHT; PLATELET ESTIMATE NORMAL (NORMAL)
[2016-09-27 08:09] LABS: HYPOCHROMIC SLIGHT; MICROCYTOSIS SLIGHT; POLYCHROMIC SLIGHT
[2016-09-27] MEDS ORDERED: Lidocaine 4% (Laryng-O-Jet) Kit MM ONE (09:15)
[2016-09-27] MEDS: Pantoprazole 40 mg EC Tab PO SCH (09:57)
[2016-09-27] MEDS ORDERED: Etomidate 20 mg/10ml Inj IV ONE (11:08)
[2016-09-27] MEDS ORDERED: Propofol 10 mg/ml Inj (20 ML) ONE (11:46)
--- NOTE | 2016-09-27 12:16 | CP.PCM.PN ---
Subjective - Date & Time of Evaluation Date of Evaluation: 09/27/16 Time of Evaluation: 12:13 - Subjective Subjective: 56 year old male was seen for right foot plantar ulceration with 1st interspace maceration. Patient is aware that he is to have surgery on his right foot this Sunday afternoon. Patient denies any acute events overnight. Patient denies n/v /f/c/sob at this time. Objective - Vital Signs/Intake and Output Vital Signs (last 24 hours): Temp Pulse Resp BP Pulse Ox 98.4 F 70 18 134/77 97 09/27/16 07:05 09/27/16 07:05 09/27/16 07:05 09/27/16 07:05 09/27/16 07:05 Intake and Output: 09/27/16 09/27/16 06:59 18:59 Intake Total 750 Balance 750 - Medications Medications: Current Medications Amlodipine Besylate (Norvasc) 5 mg PO HS [facility] Last Admin: 09/26/16 21:40 Dose: 5 mg Aspirin (Ecotrin) 81 mg PO DAILY [facility] Last Admin: 09/27/16 09:56 Dose: Not Given Cinacalcet (Sensipar) 30 mg PO DAILY [facility] Last Admin: 09/27/16 09:52 Dose: 30 mg Ergocalciferol (Drisdol 50,000 Intl Units Cap) 1 cap PO QWK [facility] Gabapentin (Neurontin) 100 mg PO TID [facility] Last Admin: 09/27/16 09:56 Dose: Not Given Glipizide (Glucotrol Xl) 10 mg PO BID [facility] Last Admin: 09/26/16 17:49 Dose: 10 mg Heparin Sodium (Porcine) (Heparin) 5,000 units SC Q12 [facility] Last Admin: 09/26/16 09:48 Dose: 5,000 units Piperacillin Sod/Tazobactam Sod (Zosyn 2.25 Gm Iv Premix) 2.25 gm in 50 mls @ 100 mls/hr IVPB Q6H [facility] Last Admin: 09/27/16 09:52 Dose: 100 mls/hr Insulin Aspart (Novolog) 30 unit SC TIDAC [facility] Last Admin: 09/27/16 07:44 Dose: Not Given Insulin Glargine (Lantus) 55 unit SC HS [facility] Last Admin: 09/26/16 21:41 Dose: Not Given Mycophenolate Mofetil (Cellcept) 500 mg PO BID [facility] Last Admin: 09/27/16 09:52 Dose: 500 mg Pantoprazole Sodium (Protonix Ec Tab) 40 mg PO DAILY [facility] Last Admin: 09/27/16 09:57 Dose: Not Given Prednisone (Prednisone Tab) 5 mg PO HS [facility] Last Admin: 09/26/16 21:39 Dose: 5 mg Rosuvastatin Calcium (Crestor) 10 mg PO HS [facility] Last Admin: 09/26/16 21:39 Dose: 10 mg Sitagliptin Phosphate (Januvia) 50 mg PO DAILY [facility] Last Admin: 09/26/16 09:47 Dose: 50 mg Tacrolimus (Prograf Cap) 1 mg PO Q12 [facility] Last Admin: 09/27/16 09:52 Dose: 1 mg - Labs Labs: 09/27/16 05:53 09/27/16 05:53 PT 11.9 SECONDS (9.7-12.2) 09/27/16 05:53 INR 1.1 09/27/16 05:53 APTT 30 SECONDS (21-34) 09/27/16 05:53 - Constitutional Appears: Non-toxic, No Acute Distress - Extremities Exam Additional comments: Right lower extremity focused examination: Vasc: DP pulse 2/4, PT pulse non-palpable due to non-pitting perimalleolar edema. CFT < 3 sec to all digits. Temperature gradient warm to warm from proximal to distal. Derm: An approximately 1.5 cm x 1.5 cm x 0.3 cm ulceration noted sub second metatarsal head of plantar foot. base is fibrotic and rim is hyperkeratotic. No malodor, no fluctuance, no tunneling, no drainage, no undermining noted. Adjacent maceration with skin break in 1st interspace. No malodor, no drainage, no fluctuance, no undermining, no probe to bone. Neuro: Protective sensation grossly diminished Ortho: No pain on palpation of right foot in area of ulcerations - Neurological Exam Neurological Exam: Alert, Awake, Oriented x3 - Psychiatric Exam Psychiatric exam: Normal Affect, Normal Mood Assessment and Plan - Assessment and Plan (Free Text) Assessment: 56 y/o male with right sub met 2 plantar ulceration and 1st interspace ulceration secondary to DM Plan: Patient seen and examined Discussed with attending, Dr. Sanchez Lab, chart, vitals reviewed Right foot dressed with xeroform, DSD bone scan impressions:No evidence of acute osseous process. Increased profusion right lower extremity compared to left and Intense accumulation of radionuclide within soft tissues medial aspect right foot compatible with cellulitis without obvious osteomyelitis. Continue IV abx as per ID Medical and cardiac optimization needed as pt to OR Sunday at 3:30 pm for right 2nd metatarsal head resection, discussed with Dr. Blake and Dr. Stapleton Pt to be NPO after 6:30 am breakfast tray on Sunday09/29/16 podiatry will continue to follow patient while in house
--- NOTE | 2016-09-27 12:59 | CARD ---
APPROVED REPORT EXAM: Two-dimensional and M-mode echocardiogram with Doppler and color Doppler. Other Information Quality : GoodRhythm : NSR INDICATION Murmur Non STEMI PNEUMONIA; R/O ENDOCARDITIS RISK FACTORS Hypertension Diabetes 2D DIMENSIONS LVOT Diameter2.1 (1.8-2.4cm) M-Mode DIMENSIONS RVDd2.60 (2.1-3.2cm)Left Atrium (MM)6.01 (2.5-4.0cm) IVSd1.28 (0.7-1.1cm)Aortic Root2.50 (2.2-3.7cm) LVDd6.07 (4.0-5.6cm)Aortic Cusp Exc.0.94 (1.5-2.0cm) PWd1.25 (0.7-1.1cm)FS (%) 23 % LVDs4.69 (2.0-3.8cm)LVEF (%)45 (>50%) Aortic Valve AoV Peak Amehzfsv621.4cm/sAoV VTI53.8cmAO Peak GR.25mmHg LVOT Peak Lrkthlyw165.5cm/sLVOT VTI34.64cmAO Mean GR.13mmHg TERRI (VMAX)2.53ra6DRG (VTI)2.33cm2 Mitral Valve MV E Yehowwzl041.6cm/sMV A Fpznkxoh778.8cm/sE/A ratio1.0 TDI E/Lateral E'0.0E/Medial E'0.0 Tricuspid Valve TR Peak Hvjuazyn004cz/sTR Peak Gr.78jiUfSIBD77wdJw LEFT VENTRICLE The left ventricle is normal size. There is mild concentric left ventricular hypertrophy. Left ventricle systolic function is mildly impaired. The Ejection Fraction is 45-50%. Mild global hypokinesia Transmitral Doppler flow pattern is Grade I-abnormal relaxation pattern. There is no ventricular septal defect visualized. RIGHT VENTRICLE The right ventricle is normal size. The right ventricular systolic function is normal. ATRIA The left atrium is mildly dilated. The right atrium size is normal. AORTIC VALVE The aortic valve is mildly sclerotic. The aortic valve is tri-cuspid. No aortic regurgitation is present. There is no aortic valvular stenosis. Density in the sinus of Valsalva suggestive of TAVR, stable in place, no regurgitation, gradient of 25 mmHg probably appropriate post operative placement. For further evaluation of possible sepsis a JOYCELYN is more sensitive. MITRAL VALVE The mitral valve leaflets are thickened. In both anterior and posterior leaflet by mid leaflet. To rule out endocarditis transesophageal echo is more sensitive. There is no evidence of mitral valve prolapse. Mitral regurgitation is mild. The mitral regurgitant jet is posteriorly directed, which is consistent with anterior leaflet pathology. TRICUSPID VALVE The tricuspid valve is normal in structure. There is trace tricuspid regurgitation. Right ventricular systolic pressure is estimated at less than 30 mmHg. There is no pulmonary hypertension. PULMONIC VALVE The pulmonary valve is normal in structure. There is no pulmonic valvular regurgitation. GREAT VESSELS The aortic root is normal in size. Probable transcatheter valve replacement The IVC is normal in size and collapses >50% with inspiration. PERICARDIAL EFFUSION There is no pericardial effusion. <Conclusion> There is mild concentric left ventricular hypertrophy. Transmitral Doppler flow pattern is Grade I-abnormal relaxation pattern. Mitral regurgitation is mild. Left ventricle systolic function is mildly impaired. The Ejection Fraction is 45-50%. Density in the sinus of Valsalva suggestive of TAVR, stable in place, no regurgitation, gradient of 25 mmHg probably appropriate post operative placement. For further evaluation of possible sepsis a JOYCELYN is more sensitive.
--- NOTE | 2016-09-27 14:25 | CP.PCM.PN ---
Subjective - Date & Time of Evaluation Date of Evaluation: 09/27/16 Time of Evaluation: 13:15 - Subjective Subjective: s/p vinh today for OR on Sunday length of time of AB to be determined no fever no chest pain no sob good appetite no urinary issues no edema no rash no joint pain no headache Objective - Vital Signs/Intake and Output Vital Signs (last 24 hours): Temp Pulse Resp BP Pulse Ox 98.4 F 70 18 134/77 97 09/27/16 07:05 09/27/16 07:05 09/27/16 07:05 09/27/16 07:05 09/27/16 07:05 Intake and Output: 09/27/16 09/27/16 06:59 18:59 Intake Total 750 Balance 750 - Medications Medications: Current Medications Amlodipine Besylate (Norvasc) 5 mg PO HS [facility] Last Admin: 09/26/16 21:40 Dose: 5 mg Aspirin (Ecotrin) 81 mg PO DAILY [facility] Last Admin: 09/27/16 09:56 Dose: Not Given Cinacalcet (Sensipar) 30 mg PO DAILY [facility] Last Admin: 09/27/16 09:52 Dose: 30 mg Ergocalciferol (Drisdol 50,000 Intl Units Cap) 1 cap PO QWK [facility] Gabapentin (Neurontin) 100 mg PO TID [facility] Last Admin: 09/27/16 09:56 Dose: Not Given Glipizide (Glucotrol Xl) 10 mg PO BID [facility] Last Admin: 09/26/16 17:49 Dose: 10 mg Heparin Sodium (Porcine) (Heparin) 5,000 units SC Q12 [facility] Last Admin: 09/26/16 09:48 Dose: 5,000 units Piperacillin Sod/Tazobactam Sod (Zosyn 2.25 Gm Iv Premix) 2.25 gm in 50 mls @ 100 mls/hr IVPB Q6H [facility] Last Admin: 09/27/16 09:52 Dose: 100 mls/hr Insulin Aspart (Novolog) 30 unit SC TIDAC [facility] Last Admin: 09/27/16 07:44 Dose: Not Given Insulin Glargine (Lantus) 55 unit SC HS [facility] Last Admin: 09/26/16 21:41 Dose: Not Given Mycophenolate Mofetil (Cellcept) 500 mg PO BID [facility] Last Admin: 09/27/16 09:52 Dose: 500 mg Pantoprazole Sodium (Protonix Ec Tab) 40 mg PO DAILY [facility] Last Admin: 09/27/16 09:57 Dose: Not Given Prednisone (Prednisone Tab) 5 mg PO HS [facility] Last Admin: 09/26/16 21:39 Dose: 5 mg Rosuvastatin Calcium (Crestor) 10 mg PO HS [facility] Last Admin: 09/26/16 21:39 Dose: 10 mg Sitagliptin Phosphate (Januvia) 50 mg PO DAILY [facility] Last Admin: 09/26/16 09:47 Dose: 50 mg Tacrolimus (Prograf Cap) 1 mg PO Q12 [facility] Last Admin: 09/27/16 09:52 Dose: 1 mg - Labs Labs: 09/27/16 05:53 09/27/16 05:53 PT 11.9 SECONDS (9.7-12.2) 09/27/16 05:53 INR 1.1 09/27/16 05:53 APTT 30 SECONDS (21-34) 09/27/16 05:53 - Constitutional Appears: Non-toxic, Chronically Ill - Head Exam Head Exam: ATRAUMATIC, NORMAL INSPECTION - Eye Exam Eye Exam: EOMI - ENT Exam ENT Exam: Mucous Membranes Moist - Neck Exam Neck Exam: Full ROM. absent: Lymphadenopathy - Respiratory Exam Respiratory Exam: Clear to Ausculation Bilateral. absent: Accessory Muscle Use - Cardiovascular Exam Cardiovascular Exam: REGULAR RHYTHM. absent: Rubs - GI/Abdominal Exam GI & Abdominal Exam: Soft, Normal Bowel Sounds. absent: Tenderness Additional comments: kidney transplant nontender - Extremities Exam Extremities Exam: Full ROM Additional comments: right foot bandaged - Neurological Exam Neurological Exam: Alert, Oriented x3 Assessment and Plan - Assessment and Plan (Free Text) Plan: renal transplant ckd 3 foot ulcer diabetes htn aortic stenosis f/u vinh avoid nephrotoxic agents f/u creatinine
--- NOTE | 2016-09-27 14:32 | CP.PCM.PN ---
Subjective - Date & Time of Evaluation Date of Evaluation: 09/27/16 Time of Evaluation: 08:00 - Subjective Subjective: PGY [address] Blake: Pt was seen an examined at bedside. He denies any acute changes in his clinical status. He denies pain in his foot. His sugar still remain uncontrolled. Patient denies n/v/f/c/sob at this time. He states that he is otherwise feeling well. He will have a JOYCELYN done today. Objective - Vital Signs/Intake and Output Vital Signs (last 24 hours): Temp Pulse Resp BP Pulse Ox 98.4 F 70 18 134/77 97 09/27/16 07:05 09/27/16 07:05 09/27/16 07:05 09/27/16 07:05 09/27/16 07:05 Intake and Output: 09/27/16 09/27/16 06:59 18:59 Intake Total 750 Balance 750 - Medications Medications: Current Medications Amlodipine Besylate (Norvasc) 5 mg PO HS [facility] Last Admin: 09/26/16 21:40 Dose: 5 mg Aspirin (Ecotrin) 81 mg PO DAILY [facility] Last Admin: 09/27/16 09:56 Dose: Not Given Cinacalcet (Sensipar) 30 mg PO DAILY [facility] Last Admin: 09/27/16 09:52 Dose: 30 mg Ergocalciferol (Drisdol 50,000 Intl Units Cap) 1 cap PO QWK [facility] Gabapentin (Neurontin) 100 mg PO TID [facility] Last Admin: 09/27/16 14:24 Dose: 100 mg Glipizide (Glucotrol Xl) 10 mg PO BID [facility] Last Admin: 09/26/16 17:49 Dose: 10 mg Heparin Sodium (Porcine) (Heparin) 5,000 units SC Q12 [facility] Last Admin: 09/26/16 09:48 Dose: 5,000 units Piperacillin Sod/Tazobactam Sod (Zosyn 2.25 Gm Iv Premix) 2.25 gm in 50 mls @ 100 mls/hr IVPB Q6H [facility] Last Admin: 09/27/16 09:52 Dose: 100 mls/hr Insulin Aspart (Novolog) 30 unit SC TIDAC [facility] Last Admin: 09/27/16 14:24 Dose: 30 unit Insulin Glargine (Lantus) 55 unit SC HS [facility] Last Admin: 09/26/16 21:41 Dose: Not Given Mycophenolate Mofetil (Cellcept) 500 mg PO BID [facility] Last Admin: 09/27/16 09:52 Dose: 500 mg Pantoprazole Sodium (Protonix Ec Tab) 40 mg PO DAILY [facility] Last Admin: 09/27/16 09:57 Dose: Not Given Prednisone (Prednisone Tab) 5 mg PO [facility] Last Admin: 09/26/16 21:39 Dose: 5 mg Rosuvastatin Calcium (Crestor) 10 mg PO [facility] Last Admin: 09/26/16 21:39 Dose: 10 mg Sitagliptin Phosphate (Januvia) 50 mg PO DAILY [facility] Last Admin: 09/26/16 09:47 Dose: 50 mg Tacrolimus (Prograf Cap) 1 mg PO Q12 [facility] Last Admin: 09/27/16 09:52 Dose: 1 mg - Labs Labs: 09/27/16 05:53 09/27/16 05:53 PT 11.9 SECONDS (9.7-12.2) 09/27/16 05:53 INR 1.1 09/27/16 05:53 APTT 30 SECONDS (21-34) 09/27/16 05:53 - Constitutional Appears: Non-toxic, No Acute Distress - Head Exam Head Exam: ATRAUMATIC, NORMAL INSPECTION - Eye Exam Eye Exam: EOMI Pupil Exam: NORMAL ACCOMODATION - ENT Exam ENT Exam: Mucous Membranes Moist - Respiratory Exam Respiratory Exam: Clear to Ausculation Bilateral, NORMAL BREATHING PATTERN. absent: Rales, Rhonchi, Wheezes, Respiratory Distress - Cardiovascular Exam Cardiovascular Exam: REGULAR RHYTHM, +S1, +S2 - GI/Abdominal Exam GI & Abdominal Exam: Soft, Normal Bowel Sounds. absent: Distended, Firm, Guarding, Tenderness Additional comments: obese - Back Exam Back Exam: absent: CVA tenderness (L), CVA tenderness (R), paraspinal tenderness Additional comments: wound dressing c/d/i +2 dp pulses - Neurological Exam Neurological Exam: Alert, Awake, CN II-XII Intact, Oriented x3 - Psychiatric Exam Psychiatric exam: Normal Affect, Normal Mood - Skin Skin Exam: Dry, Intact, Normal Color, Warm Assessment and Plan - Assessment and Plan (Free Text) Assessment: Right Lower extremity wound right foot plantar ulceration with 1st interspace maceration. Foot xray shows no evidence of OM MRI foot unable to be done due to AVR Bone scan done today- cellulitis of RLE w/o obvious osteomyeltitis Continue with IV abx as per ID- zosyn 2.25g IV Q6hrs Podiatry on board- recs appreciated -> Will go to OR on Sunday Bacteremia Has been afebrile for 48 hours, WBC normal Blood culture positive B-hemolytic strep Dr. Lobo cardiology consulted, help appreciated Pt is s/p AVR for aortic stenosis JOYCELYN negative endocarditis ruled out Continue IV abx as per ID recommendations Continue zosyn 2.25 gm IVPB Q6 hours (started 09/25) - Day #3 Vancomycin discontinued due to renal stats HTN- controlled with meds Controlled Norvasc 5mg PO HS [facility] Novolog 30 U SC TIDAC Lantus 60 U HS - increased from 55 U today glipizide 10mg PO BID Januvia 50mg PO daily ISS hold AM doses of glipizide and januvia for JOYCELYN Neuropathy continue with gabapentin 100mg PO TID s/p renal transplant continue with cellcept, Prograf, sensipar, ergocal and prednisone F/u prograf level Vancomycin discontinued Consult placed to Dr. Duggan CKD stage 3 see above Nephrology on board Monitor Cr Prophylaxis Protonix Heparin 5000 U SC Q12 [facility] 81 mg PO daily
--- NOTE | 2016-09-27 15:32 | CP.PCM.PN ---
Subjective - Date & Time of Evaluation Date of Evaluation: 09/27/16 Time of Evaluation: 09:00 - Subjective Subjective: bone scan neg for OM JOYCELYN reportedly neg cont IV rx min 14 days and wound care may need debridement Objective - Vital Signs/Intake and Output Vital Signs (last 24 hours): Temp Pulse Resp BP Pulse Ox 98.4 F 70 18 134/77 97 09/27/16 07:05 09/27/16 07:05 09/27/16 07:05 09/27/16 07:05 09/27/16 07:05 Intake and Output: 09/27/16 09/27/16 06:59 18:59 Intake Total 750 Balance 750 - Medications Medications: Current Medications Amlodipine Besylate (Norvasc) 5 mg PO HS [facility] Last Admin: 09/26/16 21:40 Dose: 5 mg Aspirin (Ecotrin) 81 mg PO DAILY [facility] Last Admin: 09/27/16 09:56 Dose: Not Given Cinacalcet (Sensipar) 30 mg PO DAILY [facility] Last Admin: 09/27/16 09:52 Dose: 30 mg Ergocalciferol (Drisdol 50,000 Intl Units Cap) 1 cap PO QWK [facility] Gabapentin (Neurontin) 100 mg PO TID [facility] Last Admin: 09/27/16 14:24 Dose: 100 mg Glipizide (Glucotrol Xl) 10 mg PO BID [facility] Last Admin: 09/26/16 17:49 Dose: 10 mg Heparin Sodium (Porcine) (Heparin) 5,000 units SC Q12 [facility] Last Admin: 09/26/16 09:48 Dose: 5,000 units Piperacillin Sod/Tazobactam Sod (Zosyn 2.25 Gm Iv Premix) 2.25 gm in 50 mls @ 100 mls/hr IVPB Q6H [facility] Last Admin: 09/27/16 09:52 Dose: 100 mls/hr Insulin Aspart (Novolog) 30 unit SC TIDAC [facility] Last Admin: 09/27/16 14:24 Dose: 30 unit Insulin Glargine (Lantus) 60 unit SC HS [facility] Mycophenolate Mofetil (Cellcept) 500 mg PO BID [facility] Last Admin: 09/27/16 09:52 Dose: 500 mg Pantoprazole Sodium (Protonix Ec Tab) 40 mg PO DAILY [facility] Last Admin: 09/27/16 09:57 Dose: Not Given Prednisone (Prednisone Tab) 5 mg PO HS [facility] Last Admin: 09/26/16 21:39 Dose: 5 mg Rosuvastatin Calcium (Crestor) 10 mg PO HS [facility] Last Admin: 09/26/16 21:39 Dose: 10 mg Sitagliptin Phosphate (Januvia) 50 mg PO DAILY [facility] Last Admin: 09/26/16 09:47 Dose: 50 mg Tacrolimus (Prograf Cap) 1 mg PO Q12 [facility] Last Admin: 09/27/16 09:52 Dose: 1 mg - Labs Labs: 09/27/16 05:53 09/27/16 05:53 PT 11.9 SECONDS (9.7-12.2) 09/27/16 05:53 INR 1.1 09/27/16 05:53 APTT 30 SECONDS (21-34) 09/27/16 05:53 - Constitutional Appears: Non-toxic, Chronically Ill - Head Exam Head Exam: NORMOCEPHALIC - Eye Exam Eye Exam: PERRL. absent: Scleral icterus - ENT Exam ENT Exam: Mucous Membranes Dry - Neck Exam Neck Exam: absent: Lymphadenopathy - Respiratory Exam Respiratory Exam: Decreased Breath Sounds - Cardiovascular Exam Cardiovascular Exam: REGULAR RHYTHM - GI/Abdominal Exam GI & Abdominal Exam: Distended, Soft - Rectal Exam Rectal Exam: Deferred - Exam Exam: NORMAL INSPECTION Assessment and Plan (1) Diabetic foot ulcer Status: Acute (2) Uncontrolled diabetes mellitus Status: Acute (3) Abscess Status: Acute (4) Acute on chronic diastolic CHF (congestive heart failure), NYHA class 3 Status: Acute (5) Acute renal failure Status: Acute (6) CKD (chronic kidney disease) stage 5, GFR less than 15 ml/min Status: Acute (7) Cellulitis and abscess of foot Status: Acute (8) Chronic kidney disease, stage III (moderate) Status: Acute (9) Congestive heart failure Status: Acute (10) Diabetes mellitus type 2 in obese Status: Acute (11) Osteomyelitis Status: Acute (12) Diabetes mellitus Status: Chronic (13) History of kidney transplant Status: Chronic (14) Renal insufficiency Status: Chronic
[2016-09-27] MEDS: Oxycodone/Acetaminophen 5/325 mg Tab PO PRN (16:27)
[2016-09-27] MEDS: GlipiZIDE 10 mg SR Tab PO SCH (17:30)
--- NOTE | 2016-09-27 21:53 | CARD ---
APPROVED REPORT EKG Measurement Heart [id number] [place] 112P [id number] <Conclusion> Sinus tachycardia Left axis deviation lbbb Abnormal ECG
[2016-09-27] MEDS: (Lantus) Insulin Glargine, Recombinant SC SCH (21:56)
--- NOTE | 2016-09-27 23:18 | CP.PCM.PN ---
Subjective - Date & Time of Evaluation Date of Evaluation: 09/27/16 Time of Evaluation: 19:25 - Subjective Subjective: Patient s/p JOYCELYN No Endocarditis Mildly decreased EF Normally functioning TAVR valve Clarence moderate risk for Foot surgery under Anaesthesia If Benefit outweighs the risk please proceed with the surgery Objective - Vital Signs/Intake and Output Vital Signs (last 24 hours): Temp Pulse Resp BP Pulse Ox 98.6 F 90 20 129/83 96 09/27/16 15:06 09/27/16 22:02 09/27/16 15:06 09/27/16 22:02 09/27/16 15:06 - Medications Medications: Current Medications Amlodipine Besylate (Norvasc) 5 mg PO HS [facility] Last Admin: 09/27/16 21:58 Dose: 5 mg Aspirin (Ecotrin) 81 mg PO DAILY [facility] Last Admin: 09/27/16 09:56 Dose: Not Given Cinacalcet (Sensipar) 30 mg PO DAILY [facility] Last Admin: 09/27/16 09:52 Dose: 30 mg Ergocalciferol (Drisdol 50,000 Intl Units Cap) 1 cap PO QWK [facility] Gabapentin (Neurontin) 100 mg PO TID [facility] Last Admin: 09/27/16 17:30 Dose: 100 mg Glipizide (Glucotrol Xl) 10 mg PO BID [facility] Last Admin: 09/27/16 17:30 Dose: 10 mg Heparin Sodium (Porcine) (Heparin) 5,000 units SC Q12 [facility] Last Admin: 09/27/16 22:06 Dose: Not Given Piperacillin Sod/Tazobactam Sod (Zosyn 2.25 Gm Iv Premix) 2.25 gm in 50 mls @ 100 mls/hr IVPB Q6H [facility] Last Admin: 09/27/16 21:56 Dose: 100 mls/hr Insulin Aspart (Novolog) 30 unit SC TIDAC [facility] Last Admin: 09/27/16 17:31 Dose: 30 unit Insulin Glargine (Lantus) 60 unit SC HS [facility] Last Admin: 09/27/16 21:56 Dose: 60 units Mycophenolate Mofetil (Cellcept) 500 mg PO BID [facility] Last Admin: 09/27/16 17:30 Dose: 500 mg Oxycodone/Acetaminophen (Percocet 5/325 Mg Tab) 1 tab PO Q8 PRN PRN Reason: Pain, severe (8-10) Stop: 09/30/16 16:31 Last Admin: 09/27/16 16:27 Dose: 1 tab Pantoprazole Sodium (Protonix Ec Tab) 40 mg PO DAILY [facility] Last Admin: 09/27/16 09:57 Dose: Not Given Prednisone (Prednisone Tab) 5 mg PO HS [facility] Last Admin: 09/27/16 21:57 Dose: 5 mg Rosuvastatin Calcium (Crestor) 10 mg PO HS [facility] Last Admin: 09/27/16 22:00 Dose: 10 mg Sitagliptin Phosphate (Januvia) 50 mg PO DAILY [facility] Last Admin: 09/26/16 09:47 Dose: 50 mg Tacrolimus (Prograf Cap) 1 mg PO Q12 [facility] Last Admin: 09/27/16 21:57 Dose: 1 mg - Labs Labs: 09/27/16 05:53 09/27/16 05:53 PT 11.9 SECONDS (9.7-12.2) 09/27/16 05:53 INR 1.1 09/27/16 05:53 APTT 30 SECONDS (21-34) 09/27/16 05:53
[2016-09-28] MEDS: Piperacill/Tazo 2.25gm in Dex 2.25 GM/50 ML BAG IVPB SCH ×4 (04:05→22:11)
[2016-09-28 07:31] LABS: BASO # 0.1 K/uL (0.0-0.2); BASO % 0.6 % (0.0-2.0); EOS # 0.2 K/uL (0.0-0.7); EOS % 2.5 % (0.0-4.0); HEMOGLOBIN 11.4 g/dL (12.0-18.0); LYMPH # 0.6 K/uL (1.0-4.3); LYMPH % 6.3 % (20.0-40.0); MEAN CELL VOLUME 77.1 fL (80.0-94.0); MEAN CORPUSCULAR HEMOGLOBIN 24.5 pg (27.0-31.0); MEAN CORPUSCULAR HGB CONC 31.8 g/dL (33.0-37.0); MEAN PLATELET VOLUME 8.8 fL (7.2-11.7); MONO # 0.6 K/uL (0.0-0.8); NEUT # 7.7 K/uL (1.8-7.0); NEUT % 83.6 % (50.0-75.0); PLATELET COUNT 247 K/uL (130-400); RBC 4.63 Mil/uL (4.40-5.90); RED CELL DISTRIBUTION WIDTH 18.5 % (11.5-14.5); WHITE BLOOD COUNT 9.2 K/uL (4.8-10.8)
[2016-09-28 07:51] LABS: ALB/GLOB RATIO 0.9 (1.0-2.1); ALBUMIN 3.4 g/dL (3.5-5.0); CALCIUM 9.4 mg/dl (8.6-10.4); MAGNESIUM 1.5 mg/dL (1.6-2.3)
[2016-09-28] MEDS: (Novolog) Insulin Aspart, Recombinant 100 u/ml 10 ml vial SC SCH ×3 (08:01→16:30)
[2016-09-28 08:44] LABS: EOSINOPHIL 1 % (0-4); LYMPHOCYTE 8 % (20-40); MONOCYTE 9 % (0-10); NEUTROPHIL 82 % (50-75); PLATELET ESTIMATE NORMAL (NORMAL); TOTAL CELLS COUNTED 100
[2016-09-28 08:45] LABS: ANISOCYTOSIS SLIGHT
[2016-09-28 08:46] LABS: HYPOCHROMIC SLIGHT; POIKILOCYTOSIS SLIGHT
[2016-09-28 08:47] LABS: GIANT PLATELETS PRESENT; LARGE PLATELETS PRESENT
[2016-09-28 08:49] LABS: TEARDROP CELLS SLIGHT
[2016-09-28] MEDS: Pantoprazole 40 mg EC Tab PO SCH (09:48)
[2016-09-28] MEDS: GlipiZIDE 10 mg SR Tab PO SCH ×2 (09:48→19:12)
--- NOTE | 2016-09-28 10:04 | CP.PCM.PN ---
Subjective - Date & Time of Evaluation Date of Evaluation: 09/28/16 Time of Evaluation: 07:45 - Subjective Subjective: PGY [address] Blake: Pt was seen an examined at bedside. He admits to mild pain in his foot. Patient denies n/v/f/c/sob at this time. He states that he is otherwise feeling well. s/p JOYCELYN which was negative. He will go to OR tomorrow for debridement of his leg wound. Objective - Vital Signs/Intake and Output Vital Signs (last 24 hours): Temp Pulse Resp BP Pulse Ox 97.9 F 70 17 155/87 H 96 09/28/16 07:50 09/28/16 07:50 09/28/16 07:50 09/28/16 07:50 09/28/16 07:50 Intake and Output: 09/28/16 09/28/16 06:59 18:59 Intake Total 710 Balance 710 - Medications Medications: Current Medications Amlodipine Besylate (Norvasc) 5 mg PO HS [facility] Last Admin: 09/27/16 21:58 Dose: 5 mg Aspirin (Ecotrin) 81 mg PO DAILY [facility] Last Admin: 09/28/16 09:48 Dose: 81 mg Cinacalcet (Sensipar) 30 mg PO DAILY [facility] Last Admin: 09/28/16 09:48 Dose: 30 mg Ergocalciferol (Drisdol 50,000 Intl Units Cap) 1 cap PO QWK [facility] Gabapentin (Neurontin) 100 mg PO TID [facility] Last Admin: 09/28/16 09:48 Dose: 100 mg Glipizide (Glucotrol Xl) 10 mg PO BID [facility] Last Admin: 09/28/16 09:48 Dose: 10 mg Heparin Sodium (Porcine) (Heparin) 5,000 units SC Q12 [facility] Last Admin: 09/28/16 09:47 Dose: 5,000 units Piperacillin Sod/Tazobactam Sod (Zosyn 2.25 Gm Iv Premix) 2.25 gm in 50 mls @ 100 mls/hr IVPB Q6H [facility] Last Admin: 09/28/16 09:49 Dose: 100 mls/hr Magnesium Sulfate/Dextrose (Magnesium Sulfate 1 Gm/100 Ml D5w) 1 gm in 100 mls @ 100 mls/hr IVPB Q1H [facility] Stop: 09/28/16 11:59 Insulin Aspart (Novolog) 30 unit SC TIDAC [facility] Last Admin: 09/28/16 08:01 Dose: 30 unit Insulin Glargine (Lantus) 60 unit SC HS [facility] Last Admin: 09/27/16 21:56 Dose: 60 units Mycophenolate Mofetil (Cellcept) 500 mg PO BID [facility] Last Admin: 09/28/16 09:48 Dose: 500 mg Oxycodone/Acetaminophen (Percocet 5/325 Mg Tab) 1 tab PO Q8 PRN PRN Reason: Pain, severe (8-10) Stop: 09/30/16 16:31 Last Admin: 09/27/16 16:27 Dose: 1 tab Pantoprazole Sodium (Protonix Ec Tab) 40 mg PO DAILY [facility] Last Admin: 09/28/16 09:48 Dose: 40 mg Prednisone (Prednisone Tab) 5 mg PO [facility] Last Admin: 09/27/16 21:57 Dose: 5 mg Rosuvastatin Calcium (Crestor) 10 mg PO [facility] Last Admin: 09/27/16 22:00 Dose: 10 mg Sitagliptin Phosphate (Januvia) 50 mg PO DAILY [facility] Last Admin: 09/28/16 09:48 Dose: 50 mg Tacrolimus (Prograf Cap) 1 mg PO Q12 [facility] Last Admin: 09/28/16 09:48 Dose: 1 mg - Labs Labs: 09/28/16 07:17 09/28/16 07:17 PT 11.9 SECONDS (9.7-12.2) 09/27/16 05:53 INR 1.1 09/27/16 05:53 APTT 30 SECONDS (21-34) 09/27/16 05:53 - Constitutional Appears: Non-toxic, No Acute Distress - Head Exam Head Exam: NORMAL INSPECTION - Eye Exam Eye Exam: EOMI, Normal appearance, PERRL Pupil Exam: NORMAL ACCOMODATION - ENT Exam ENT Exam: Mucous Membranes Moist - Respiratory Exam Respiratory Exam: Clear to Ausculation Bilateral, NORMAL BREATHING PATTERN. absent: Rales, Rhonchi, Wheezes, Respiratory Distress - Cardiovascular Exam Cardiovascular Exam: REGULAR RHYTHM, +S1, +S2 - GI/Abdominal Exam GI & Abdominal Exam: Soft, Normal Bowel Sounds. absent: Distended, Firm, Guarding, Tenderness - Extremities Exam Extremities Exam: Normal Inspection. absent: Calf Tenderness Additional comments: wound dressing c/d/i +2 dp pulses - Back Exam Back Exam: NORMAL INSPECTION. absent: CVA tenderness (L), CVA tenderness (R), paraspinal tenderness Additional comments: wound dressing c/d/i +2 dp pulses - Neurological Exam Neurological Exam: Alert, Awake, Oriented x3 - Psychiatric Exam Psychiatric exam: Normal Affect, Normal Mood - Skin Skin Exam: Dry, Intact, Normal Color, Warm Assessment and Plan - Assessment and Plan (Free Text) Assessment: Right Lower extremity wound right foot plantar ulceration with 1st interspace maceration. Podiatry on board- recs appreciated -> Will go to OR on Sunday Foot xray shows no evidence of OM MRI foot unable to be done due to AVR Bone scan done today- cellulitis of RLE w/o obvious osteomyeltitis Continue with IV abx as per ID- zosyn 2.25g IV Q6hrs Bacteremia Has been afebrile for 48 hours, WBC normal Blood culture positive B-hemolytic strep Dr. Lobo cardiology consulted, help appreciated Pt is s/p AVR for aortic stenosis JOYCELYN negative endocarditis ruled out Continue IV abx as per ID recommendations Continue zosyn 2.25 gm IVPB Q6 hours (started 09/25) - Day #4 Vancomycin discontinued due to renal stats HTN- controlled with meds Controlled Norvasc 5mg PO HS [facility] Novolog 30 U SC TIDAC Lantus 60 U HS - increased from 55 U today glipizide 10mg PO BID Januvia 50mg PO daily ISS hold AM doses of glipizide and januvia for JOYCELYN Neuropathy continue with gabapentin 100mg PO TID s/p renal transplant continue with cellcept, Prograf, sensipar, ergocal and prednisone F/u prograf level Vancomycin discontinued Consult placed to Dr. Duggan CKD stage 3 see above Nephrology on board Monitor Cr Prophylaxis Protonix Heparin 5000 U SC Q12 [facility] 81 mg PO daily NPO after 7am tomorrow
[2016-09-28] MEDS: Magnesium Sulfate 1 gm in D5W 1 GM/100 ML BAG IVPB SCH ×2 (10:31→11:49)
--- NOTE | 2016-09-28 11:27 | CP.PCM.PN ---
Subjective - Date & Time of Evaluation Date of Evaluation: 09/28/16 Time of Evaluation: 11:25 - Subjective Subjective: seen and examined no n/v/d/sob/cp/rash/dysuria/headache. good uop for OR tomorrow labs noted JOYCELYN negative. repeat blood cx negative Objective - Vital Signs/Intake and Output Vital Signs (last 24 hours): Temp Pulse Resp BP Pulse Ox 97.9 F 70 17 155/87 H 96 09/28/16 07:50 09/28/16 07:50 09/28/16 07:50 09/28/16 07:50 09/28/16 07:50 Intake and Output: 09/28/16 09/28/16 06:59 18:59 Intake Total 710 Balance 710 - Medications Medications: Current Medications Amlodipine Besylate (Norvasc) 5 mg PO HS [facility] Last Admin: 09/27/16 21:58 Dose: 5 mg Aspirin (Ecotrin) 81 mg PO DAILY [facility] Last Admin: 09/28/16 09:48 Dose: 81 mg Cinacalcet (Sensipar) 30 mg PO DAILY [facility] Last Admin: 09/28/16 09:48 Dose: 30 mg Ergocalciferol (Drisdol 50,000 Intl Units Cap) 1 cap PO QWK [facility] Gabapentin (Neurontin) 100 mg PO TID [facility] Last Admin: 09/28/16 09:48 Dose: 100 mg Glipizide (Glucotrol Xl) 10 mg PO BID [facility] Last Admin: 09/28/16 09:48 Dose: 10 mg Heparin Sodium (Porcine) (Heparin) 5,000 units SC Q12 [facility] Last Admin: 09/28/16 09:47 Dose: 5,000 units Piperacillin Sod/Tazobactam Sod (Zosyn 2.25 Gm Iv Premix) 2.25 gm in 50 mls @ 100 mls/hr IVPB Q6H [facility] Last Admin: 09/28/16 09:49 Dose: 100 mls/hr Magnesium Sulfate/Dextrose (Magnesium Sulfate 1 Gm/100 Ml D5w) 1 gm in 100 mls @ 100 mls/hr IVPB Q1H [facility] Stop: 09/28/16 11:59 Last Admin: 09/28/16 10:31 Dose: 100 mls/hr Insulin Aspart (Novolog) 30 unit SC TIDAC [facility] Last Admin: 09/28/16 08:01 Dose: 30 unit Insulin Glargine (Lantus) 60 unit SC [facility] Last Admin: 09/27/16 21:56 Dose: 60 units Mycophenolate Mofetil (Cellcept) 500 mg PO BID [facility] Last Admin: 09/28/16 09:48 Dose: 500 mg Oxycodone/Acetaminophen (Percocet 5/325 Mg Tab) 1 tab PO Q8 PRN PRN Reason: Pain, severe (8-10) Stop: 09/30/16 16:31 Last Admin: 09/27/16 16:27 Dose: 1 tab Pantoprazole Sodium (Protonix Ec Tab) 40 mg PO DAILY [facility] Last Admin: 09/28/16 09:48 Dose: 40 mg Prednisone (Prednisone Tab) 5 mg PO [facility] Last Admin: 09/27/16 21:57 Dose: 5 mg Rosuvastatin Calcium (Crestor) 10 mg PO [facility] Last Admin: 09/27/16 22:00 Dose: 10 mg Sitagliptin Phosphate (Januvia) 50 mg PO DAILY [facility] Last Admin: 09/28/16 09:48 Dose: 50 mg Tacrolimus (Prograf Cap) 1 mg PO Q12 [facility] Last Admin: 09/28/16 09:48 Dose: 1 mg - Labs Labs: 09/28/16 07:17 09/28/16 07:17 PT 11.9 SECONDS (9.7-12.2) 09/27/16 05:53 INR 1.1 09/27/16 05:53 APTT 30 SECONDS (21-34) 09/27/16 05:53 - Constitutional Appears: Non-toxic, No Acute Distress - Head Exam Head Exam: NORMAL INSPECTION - Eye Exam Eye Exam: Normal appearance - ENT Exam ENT Exam: Mucous Membranes Moist, Normal Exam - Neck Exam Neck Exam: Normal Inspection - Respiratory Exam Respiratory Exam: Clear to Ausculation Bilateral, NORMAL BREATHING PATTERN - Cardiovascular Exam Cardiovascular Exam: REGULAR RHYTHM - GI/Abdominal Exam GI & Abdominal Exam: Distended, Soft, Normal Bowel Sounds - Extremities Exam Extremities Exam: Normal Inspection (rt foot wound not examined) Assessment and Plan (1) Diabetic foot ulcer Status: Acute (2) Uncontrolled diabetes mellitus Status: Acute (3) Abscess Status: Acute (4) Acute renal failure Status: Acute (5) Aortic stenosis, residual Status: Acute (6) Chronic kidney disease, stage III (moderate) Status: Acute (7) HTN (hypertension) Status: Acute (8) Kidney replaced by transplant Status: Acute - Assessment and Plan (Free Text) Assessment: renal transplant ckd 3 foot ulcer diabetes htn aortic stenosis plan: start gentle ivf if npo renal function improving antibiotics per ID
--- NOTE | 2016-09-28 11:36 | CP.PCM.PN ---
Subjective - Date & Time of Evaluation Date of Evaluation: 09/28/16 Time of Evaluation: 11:36 - Subjective Subjective: 56 year old male was seen with attending Dr. Sanchez for right foot plantar ulceration with 1st interspace maceration. Patient is aware that he is to have surgery on his right foot tomorrow afternoon. Patient denies any acute events overnight. Patient denies n/v/f/c/sob at this time. Objective - Vital Signs/Intake and Output Vital Signs (last 24 hours): Temp Pulse Resp BP Pulse Ox 97.9 F 70 17 155/87 H 96 09/28/16 07:50 09/28/16 07:50 09/28/16 07:50 09/28/16 07:50 09/28/16 07:50 Intake and Output: 09/28/16 09/28/16 06:59 18:59 Intake Total 710 Balance 710 - Medications Medications: Current Medications Amlodipine Besylate (Norvasc) 5 mg PO HS [facility] Last Admin: 09/27/16 21:58 Dose: 5 mg Aspirin (Ecotrin) 81 mg PO DAILY [facility] Last Admin: 09/28/16 09:48 Dose: 81 mg Cinacalcet (Sensipar) 30 mg PO DAILY [facility] Last Admin: 09/28/16 09:48 Dose: 30 mg Ergocalciferol (Drisdol 50,000 Intl Units Cap) 1 cap PO QWK [facility] Gabapentin (Neurontin) 100 mg PO TID [facility] Last Admin: 09/28/16 09:48 Dose: 100 mg Glipizide (Glucotrol Xl) 10 mg PO BID [facility] Last Admin: 09/28/16 09:48 Dose: 10 mg Heparin Sodium (Porcine) (Heparin) 5,000 units SC Q12 [facility] Last Admin: 09/28/16 09:47 Dose: 5,000 units Piperacillin Sod/Tazobactam Sod (Zosyn 2.25 Gm Iv Premix) 2.25 gm in 50 mls @ 100 mls/hr IVPB Q6H [facility] Last Admin: 09/28/16 09:49 Dose: 100 mls/hr Magnesium Sulfate/Dextrose (Magnesium Sulfate 1 Gm/100 Ml D5w) 1 gm in 100 mls @ 100 mls/hr IVPB Q1H [facility] Stop: 09/28/16 11:59 Last Admin: 09/28/16 10:31 Dose: 100 mls/hr Insulin Aspart (Novolog) 30 unit SC TIDAC [facility] Last Admin: 09/28/16 08:01 Dose: 30 unit Insulin Glargine (Lantus) 60 unit SC HS [facility] Last Admin: 09/27/16 21:56 Dose: 60 units Mycophenolate Mofetil (Cellcept) 500 mg PO BID [facility] Last Admin: 09/28/16 09:48 Dose: 500 mg Oxycodone/Acetaminophen (Percocet 5/325 Mg Tab) 1 tab PO Q8 PRN PRN Reason: Pain, severe (8-10) Stop: 09/30/16 16:31 Last Admin: 09/27/16 16:27 Dose: 1 tab Pantoprazole Sodium (Protonix Ec Tab) 40 mg PO DAILY [facility] Last Admin: 09/28/16 09:48 Dose: 40 mg Prednisone (Prednisone Tab) 5 mg PO HS [facility] Last Admin: 09/27/16 21:57 Dose: 5 mg Rosuvastatin Calcium (Crestor) 10 mg PO [facility] Last Admin: 09/27/16 22:00 Dose: 10 mg Sitagliptin Phosphate (Januvia) 50 mg PO DAILY [facility] Last Admin: 09/28/16 09:48 Dose: 50 mg Tacrolimus (Prograf Cap) 1 mg PO Q12 [facility] Last Admin: 09/28/16 09:48 Dose: 1 mg - Labs Labs: 09/28/16 07:17 09/28/16 07:17 PT 11.9 SECONDS (9.7-12.2) 09/27/16 05:53 INR 1.1 09/27/16 05:53 APTT 30 SECONDS (21-34) 09/27/16 05:53 - Constitutional Appears: Non-toxic, No Acute Distress - Extremities Exam Additional comments: Right lower extremity focused examination: Vasc: DP pulse 2/4, PT pulse non-palpable due to non-pitting perimalleolar edema. CFT < 3 sec to all digits. Temperature gradient warm to warm from proximal to distal. Derm: An approximately 1.5 cm x 1.5 cm x 0.3 cm ulceration noted sub second metatarsal head of plantar foot. base is fibrotic and rim is hyperkeratotic. No malodor, no fluctuance, no tunneling, no drainage, no undermining noted. Adjacent maceration with skin break in 1st interspace. No malodor, no drainage, no fluctuance, no undermining, no probe to bone. Neuro: Protective sensation grossly diminished Ortho: No pain on palpation of right foot in area of ulcerations - Neurological Exam Neurological Exam: Alert, Awake, Oriented x3 - Psychiatric Exam Psychiatric exam: Normal Affect, Normal Mood Assessment and Plan - Assessment and Plan (Free Text) Assessment: 56 y/o male with right sub met 2 plantar ulceration and 1st interspace ulceration secondary to DM Plan: Patient seen and examined with attending, Dr. Sanchez Lab, chart, vitals reviewed Right foot dressed with xeroform, DSD bone scan impressions:No evidence of acute osseous process. Increased profusion right lower extremity compared to left and Intense accumulation of radionuclide within soft tissues medial aspect right foot compatible with cellulitis without obvious osteomyelitis. Continue IV abx as per ID BLANCA pending Medical and cardiac optimization in chart pt to OR Sunday at 3:30 pm for right 2nd metatarsal head resection, discussed with Dr. Stapleton anticoagulants to be held Pt to be NPO after 6:30 am breakfast tray on Sunday09/29/16 podiatry will continue to follow patient while in house
--- NOTE | 2016-09-28 18:26 | CP.PCM.PN ---
Subjective - Date & Time of Evaluation Date of Evaluation: 09/28/16 Time of Evaluation: 07:00 - Subjective Subjective: going to or in am iv rx renewed foot stable Objective - Vital Signs/Intake and Output Vital Signs (last 24 hours): Temp Pulse Resp BP Pulse Ox 97.8 F 89 20 133/79 96 09/28/16 16:43 09/28/16 16:43 09/28/16 16:43 09/28/16 16:43 09/28/16 16:43 Intake and Output: 09/28/16 09/28/16 06:59 18:59 Intake Total 710 Balance 710 - Medications Medications: Current Medications Amlodipine Besylate (Norvasc) 5 mg PO HS [facility] Last Admin: 09/27/16 21:58 Dose: 5 mg Aspirin (Ecotrin) 81 mg PO DAILY [facility] Last Admin: 09/28/16 09:48 Dose: 81 mg Cinacalcet (Sensipar) 30 mg PO DAILY [facility] Last Admin: 09/28/16 09:48 Dose: 30 mg Ergocalciferol (Drisdol 50,000 Intl Units Cap) 1 cap PO QWK [facility] Gabapentin (Neurontin) 100 mg PO TID [facility] Last Admin: 09/28/16 14:20 Dose: 100 mg Glipizide (Glucotrol Xl) 10 mg PO BID [facility] Last Admin: 09/28/16 09:48 Dose: 10 mg Heparin Sodium (Porcine) (Heparin) 5,000 units SC Q12 [facility] Last Admin: 09/28/16 09:47 Dose: 5,000 units Piperacillin Sod/Tazobactam Sod (Zosyn 2.25 Gm Iv Premix) 2.25 gm in 50 mls @ 100 mls/hr IVPB Q6H [facility] Last Admin: 09/28/16 09:49 Dose: 100 mls/hr Insulin Aspart (Novolog) 30 unit SC TIDAC [facility] Last Admin: 09/28/16 12:44 Dose: 30 unit Insulin Glargine (Lantus) 60 unit SC HS [facility] Last Admin: 09/27/16 21:56 Dose: 60 units Mycophenolate Mofetil (Cellcept) 500 mg PO BID [facility] Last Admin: 09/28/16 09:48 Dose: 500 mg Oxycodone/Acetaminophen (Percocet 5/325 Mg Tab) 1 tab PO Q8 PRN PRN Reason: Pain, severe (8-10) Stop: 09/30/16 16:31 Last Admin: 09/27/16 16:27 Dose: 1 tab Pantoprazole Sodium (Protonix Ec Tab) 40 mg PO DAILY [facility] Last Admin: 09/28/16 09:48 Dose: 40 mg Prednisone (Prednisone Tab) 5 mg PO HS [facility] Last Admin: 09/27/16 21:57 Dose: 5 mg Rosuvastatin Calcium (Crestor) 10 mg PO HS [facility] Last Admin: 09/27/16 22:00 Dose: 10 mg Sitagliptin Phosphate (Januvia) 50 mg PO DAILY [facility] Last Admin: 09/28/16 09:48 Dose: 50 mg Tacrolimus (Prograf Cap) 1 mg PO Q12 [facility] Last Admin: 09/28/16 09:48 Dose: 1 mg - Labs Labs: 09/28/16 07:17 09/28/16 07:17 PT 11.9 SECONDS (9.7-12.2) 09/27/16 05:53 INR 1.1 09/27/16 05:53 APTT 30 SECONDS (21-34) 09/27/16 05:53 - Constitutional Appears: Non-toxic, Chronically Ill - Head Exam Head Exam: NORMOCEPHALIC - Eye Exam Eye Exam: Normal appearance - ENT Exam ENT Exam: Mucous Membranes Dry - Neck Exam Neck Exam: absent: Lymphadenopathy - Respiratory Exam Respiratory Exam: Decreased Breath Sounds - Cardiovascular Exam Cardiovascular Exam: REGULAR RHYTHM - GI/Abdominal Exam GI & Abdominal Exam: Distended, Soft - Rectal Exam Rectal Exam: Deferred - Exam Exam: NORMAL INSPECTION Assessment and Plan (1) Diabetic foot ulcer Status: Acute (2) Uncontrolled diabetes mellitus Status: Acute (3) Abscess Status: Acute (4) Acute on chronic diastolic CHF (congestive heart failure), NYHA class 3 Status: Acute (5) Acute renal failure Status: Acute (6) CKD (chronic kidney disease) stage 5, GFR less than 15 ml/min Status: Acute (7) Cellulitis and abscess of foot Status: Acute (8) Chronic kidney disease, stage III (moderate) Status: Acute (9) Congestive heart failure Status: Acute (10) Diabetes mellitus type 2 in obese Status: Acute (11) Osteomyelitis Status: Acute (12) Diabetes mellitus Status: Chronic (13) History of kidney transplant Status: Chronic (14) Renal insufficiency Status: Chronic - Assessment and Plan (Free Text) Assessment: severe infection right foot - for or / debridement in am IV rx in progress Strep + in blood
--- NOTE | 2016-09-28 22:06 | CP.PCM.PN ---
Subjective - Date & Time of Evaluation Date of Evaluation: 09/28/16 Time of Evaluation: 08:50 - Subjective Subjective: Patient seen and evaluated No cardiac events Patient wants to follow up with Dr. Antonio after discharge Objective - Vital Signs/Intake and Output Vital Signs (last 24 hours): Temp Pulse Resp BP Pulse Ox 97.8 F 89 20 133/79 96 09/28/16 15:37 09/28/16 15:37 09/28/16 15:37 09/28/16 15:37 09/28/16 15:37 - Medications Medications: Current Medications Amlodipine Besylate (Norvasc) 5 mg PO HS [facility] Last Admin: 09/27/16 21:58 Dose: 5 mg Aspirin (Ecotrin) 81 mg PO DAILY [facility] Last Admin: 09/28/16 09:48 Dose: 81 mg Cinacalcet (Sensipar) 30 mg PO DAILY [facility] Last Admin: 09/28/16 09:48 Dose: 30 mg Ergocalciferol (Drisdol 50,000 Intl Units Cap) 1 cap PO QWK [facility] Gabapentin (Neurontin) 100 mg PO TID [facility] Last Admin: 09/28/16 19:12 Dose: 100 mg Glipizide (Glucotrol Xl) 10 mg PO BID [facility] Last Admin: 09/28/16 19:12 Dose: 10 mg Heparin Sodium (Porcine) (Heparin) 5,000 units SC Q12 [facility] Last Admin: 09/28/16 09:47 Dose: 5,000 units Piperacillin Sod/Tazobactam Sod (Zosyn 2.25 Gm Iv Premix) 2.25 gm in 50 mls @ 100 mls/hr IVPB Q6H [facility] Last Admin: 09/28/16 17:00 Dose: 100 mls/hr Insulin Aspart (Novolog) 30 unit SC TIDAC [facility] Last Admin: 09/28/16 16:30 Dose: 30 unit Insulin Glargine (Lantus) 60 unit SC HS [facility] Last Admin: 09/27/16 21:56 Dose: 60 units Mycophenolate Mofetil (Cellcept) 500 mg PO BID [facility] Last Admin: 09/28/16 19:12 Dose: 500 mg Oxycodone/Acetaminophen (Percocet 5/325 Mg Tab) 1 tab PO Q8 PRN PRN Reason: Pain, severe (8-10) Stop: 09/30/16 16:31 Last Admin: 09/27/16 16:27 Dose: 1 tab Pantoprazole Sodium (Protonix Ec Tab) 40 mg PO DAILY [facility] Last Admin: 09/28/16 09:48 Dose: 40 mg Prednisone (Prednisone Tab) 5 mg PO HS [facility] Last Admin: 09/27/16 21:57 Dose: 5 mg Rosuvastatin Calcium (Crestor) 10 mg PO HS [facility] Last Admin: 09/27/16 22:00 Dose: 10 mg Sitagliptin Phosphate (Januvia) 50 mg PO DAILY [facility] Last Admin: 09/28/16 09:48 Dose: 50 mg Tacrolimus (Prograf Cap) 1 mg PO Q12 [facility] Last Admin: 09/28/16 09:48 Dose: 1 mg - Labs Labs: 09/28/16 07:17 09/28/16 07:17 PT 11.9 SECONDS (9.7-12.2) 09/27/16 05:53 INR 1.1 09/27/16 05:53 APTT 30 SECONDS (21-34) 09/27/16 05:53
[2016-09-28] MEDS: (Lantus) Insulin Glargine, Recombinant SC SCH (22:12)
[2016-09-29] MEDS: Piperacill/Tazo 2.25gm in Dex 2.25 GM/50 ML BAG IVPB SCH ×4 (05:19→22:36)
[2016-09-29 07:41] LABS: BASO # 0.1 K/uL (0.0-0.2); BASO % 0.5 % (0.0-2.0); EOS # 0.3 K/uL (0.0-0.7); EOS % 2.4 % (0.0-4.0); HEMOGLOBIN 12.3 g/dL (12.0-18.0); LYMPH # 0.7 K/uL (1.0-4.3); LYMPH % 6.6 % (20.0-40.0); MEAN CELL VOLUME 76.7 fL (80.0-94.0); MEAN CORPUSCULAR HEMOGLOBIN 24.5 pg (27.0-31.0); MEAN CORPUSCULAR HGB CONC 31.9 g/dL (33.0-37.0); MEAN PLATELET VOLUME 8.9 fL (7.2-11.7); MONO # 0.7 K/uL (0.0-0.8); MONO % 6.1 % (0.0-10.0); NEUT % 84.4 % (50.0-75.0); PLATELET COUNT 302 K/uL (130-400); RBC 5.03 Mil/uL (4.40-5.90); RED CELL DISTRIBUTION WIDTH 18.5 % (11.5-14.5); WHITE BLOOD COUNT 10.7 K/uL (4.8-10.8)
[2016-09-29 07:53] LABS: PROTHROMBIN TIME 11.2 SECONDS (9.7-12.2)
[2016-09-29 08:27] LABS: ALBUMIN 3.5 g/dL (3.5-5.0)
[2016-09-29 08:30] LABS: ALB/GLOB RATIO 0.8 (1.0-2.1)
[2016-09-29 08:31] LABS: CALCIUM 9.5 mg/dl (8.6-10.4); MAGNESIUM 1.7 mg/dL (1.6-2.3)
[2016-09-29] MEDS: (Novolog) Insulin Aspart, Recombinant 100 u/ml 10 ml vial SC SCH ×3 (09:05→16:25)
[2016-09-29] MEDS: Pantoprazole 40 mg EC Tab PO SCH (09:05)
[2016-09-29] MEDS: GlipiZIDE 10 mg SR Tab PO SCH ×2 (09:05→17:05)
[2016-09-29] MEDS ORDERED: Sod Polystyrene Sulf 15 gm/60 ml Oral Susp PO ONE (10:09)
[2016-09-29 10:38] LABS: ANISOCYTOSIS SLIGHT; BASOPHIL 1 % (0-2); EOSINOPHIL 5 % (0-4); LYMPHOCYTE 6 % (20-40); NEUTROPHIL 88 % (50-75); PLATELET ESTIMATE NORMAL (NORMAL); POIKILOCYTOSIS SLIGHT; TOTAL CELLS COUNTED 100
[2016-09-29 10:39] LABS: HYPOCHROMIC SLIGHT; LARGE PLATELETS PRESENT; MICROCYTOSIS SLIGHT; TEARDROP CELLS SLIGHT
[2016-09-29 10:41] LABS: MONOCYTE 6 % (0-10)
--- NOTE | 2016-09-29 11:18 | CP.PCM.PN ---
Subjective - Date & Time of Evaluation Date of Evaluation: 09/29/16 Time of Evaluation: 11:15 - Subjective Subjective: 56 year old male was seen at bedside this morning for right foot plantar ulceration with 1st interspace maceration. Patient is aware that he is to have surgery on his right foot this afternoon. He admits that he got his breakfast tray late and finished eating at 9:30 am. Patient denies any acute events overnight. Patient denies n/v/f/c/sob at this time. Objective - Vital Signs/Intake and Output Vital Signs (last 24 hours): Temp Pulse Resp BP Pulse Ox 98.1 F 68 18 151/87 H 99 09/29/16 07:25 09/29/16 07:25 09/29/16 07:25 09/29/16 07:25 09/29/16 07:25 - Medications Medications: Current Medications Amlodipine Besylate (Norvasc) 5 mg PO HS [facility] Last Admin: 09/28/16 22:11 Dose: 5 mg Aspirin (Ecotrin) 81 mg PO DAILY [facility] Last Admin: 09/29/16 09:05 Dose: 81 mg Cinacalcet (Sensipar) 30 mg PO DAILY [facility] Last Admin: 09/29/16 09:05 Dose: 30 mg Ergocalciferol (Drisdol 50,000 Intl Units Cap) 1 cap PO QWK [facility] Gabapentin (Neurontin) 100 mg PO TID [facility] Last Admin: 09/29/16 09:05 Dose: 100 mg Glipizide (Glucotrol Xl) 10 mg PO BID [facility] Last Admin: 09/29/16 09:05 Dose: 10 mg Heparin Sodium (Porcine) (Heparin) 5,000 units SC Q12 [facility] Last Admin: 09/28/16 22:00 Dose: Not Given Piperacillin Sod/Tazobactam Sod (Zosyn 2.25 Gm Iv Premix) 2.25 gm in 50 mls @ 100 mls/hr IVPB Q6H [facility] Last Admin: 09/29/16 10:02 Dose: 100 mls/hr Insulin Aspart (Novolog) 30 unit SC TIDAC [facility] Last Admin: 09/29/16 09:05 Dose: 30 unit Insulin Glargine (Lantus) 60 unit SC HS [facility] Last Admin: 09/28/16 22:12 Dose: 60 units Mycophenolate Mofetil (Cellcept) 500 mg PO BID [facility] Last Admin: 09/29/16 09:05 Dose: 500 mg Oxycodone/Acetaminophen (Percocet 5/325 Mg Tab) 1 tab PO Q8 PRN PRN Reason: Pain, severe (8-10) Stop: 09/30/16 16:31 Last Admin: 09/27/16 16:27 Dose: 1 tab Pantoprazole Sodium (Protonix Ec Tab) 40 mg PO DAILY [facility] Last Admin: 09/29/16 09:05 Dose: 40 mg Prednisone (Prednisone Tab) 5 mg PO HS [facility] Last Admin: 09/28/16 22:11 Dose: 5 mg Rosuvastatin Calcium (Crestor) 10 mg PO HS [facility] Last Admin: 09/28/16 22:11 Dose: 10 mg Sitagliptin Phosphate (Januvia) 50 mg PO DAILY [facility] Last Admin: 09/29/16 09:05 Dose: 50 mg Tacrolimus (Prograf Cap) 1 mg PO Q12 [facility] Last Admin: 09/29/16 09:05 Dose: 1 mg - Labs Labs: 09/29/16 07:20 09/29/16 07:20 PT 11.2 SECONDS (9.7-12.2) 09/29/16 07:20 INR 1.0 09/29/16 07:20 APTT 33 SECONDS (21-34) 09/29/16 07:20 - Constitutional Appears: Non-toxic, No Acute Distress - Extremities Exam Additional comments: dressing c/d/i to R LE - Neurological Exam Neurological Exam: Alert, Awake, Oriented x3 - Psychiatric Exam Psychiatric exam: Normal Affect, Normal Mood Assessment and Plan - Assessment and Plan (Free Text) Assessment: 56 y/o male with right sub met 2 plantar ulceration and 1st interspace ulceration secondary to DM Plan: Pt was seen and examined Pt NPO status was confirmed All Pre-op testing and clearance was in the chart Pt has exhausted all conservative treatment at this time and is opting for surgical intervention Pt was explained procedure and post-operative course All pt's questions were answered to satisfaction No guarantees were made Pt understands all risks, benefits and complications of procedure Pt will follow-up with Dr. Sanchez Podiatry will continue to follow patient while in house Cont ivabx per ID BLANCA pending
--- NOTE | 2016-09-29 12:00 | CP.PCM.PN ---
Subjective - Date & Time of Evaluation Date of Evaluation: 09/29/16 Time of Evaluation: 09:15 - Subjective Subjective: PGY 2 Resident progress note for Dr. Blake: Patient was seen an examined at bedside. No acute events. Patient is aware of his procedure this afternoon and was made NPO. Patient denies headache, fever, chills, shortness of breath, chest pain, nausea, vomiting or diarrhea. Objective - Vital Signs/Intake and Output Vital Signs (last 24 hours): Temp Pulse Resp BP Pulse Ox 98.1 F 68 18 151/87 H 99 09/29/16 07:25 09/29/16 07:25 09/29/16 07:25 09/29/16 07:25 09/29/16 07:25 - Medications Medications: Current Medications Amlodipine Besylate (Norvasc) 5 mg PO HS [facility] Last Admin: 09/28/16 22:11 Dose: 5 mg Aspirin (Ecotrin) 81 mg PO DAILY [facility] Last Admin: 09/29/16 09:05 Dose: 81 mg Cinacalcet (Sensipar) 30 mg PO DAILY [facility] Last Admin: 09/29/16 09:05 Dose: 30 mg Ergocalciferol (Drisdol 50,000 Intl Units Cap) 1 cap PO QWK [facility] Gabapentin (Neurontin) 100 mg PO TID [facility] Last Admin: 09/29/16 09:05 Dose: 100 mg Glipizide (Glucotrol Xl) 10 mg PO BID [facility] Last Admin: 09/29/16 09:05 Dose: 10 mg Heparin Sodium (Porcine) (Heparin) 5,000 units SC Q12 [facility] Last Admin: 09/28/16 22:00 Dose: Not Given Piperacillin Sod/Tazobactam Sod (Zosyn 2.25 Gm Iv Premix) 2.25 gm in 50 mls @ 100 mls/hr IVPB Q6H [facility] Last Admin: 09/29/16 10:02 Dose: 100 mls/hr Insulin Aspart (Novolog) 30 unit SC TIDAC [facility] Last Admin: 09/29/16 09:05 Dose: 30 unit Insulin Glargine (Lantus) 60 unit SC HS [facility] Last Admin: 09/28/16 22:12 Dose: 60 units Mycophenolate Mofetil (Cellcept) 500 mg PO BID [facility] Last Admin: 09/29/16 09:05 Dose: 500 mg Oxycodone/Acetaminophen (Percocet 5/325 Mg Tab) 1 tab PO Q8 PRN PRN Reason: Pain, severe (8-10) Stop: 09/30/16 16:31 Last Admin: 09/27/16 16:27 Dose: 1 tab Pantoprazole Sodium (Protonix Ec Tab) 40 mg PO DAILY [facility] Last Admin: 09/29/16 09:05 Dose: 40 mg Prednisone (Prednisone Tab) 5 mg PO HS [facility] Last Admin: 09/28/16 22:11 Dose: 5 mg Rosuvastatin Calcium (Crestor) 10 mg PO HS [facility] Last Admin: 09/28/16 22:11 Dose: 10 mg Sitagliptin Phosphate (Januvia) 50 mg PO DAILY [facility] Last Admin: 09/29/16 09:05 Dose: 50 mg Tacrolimus (Prograf Cap) 1 mg PO Q12 [facility] Last Admin: 09/29/16 09:05 Dose: 1 mg - Labs Labs: 09/29/16 07:20 09/29/16 07:20 PT 11.2 SECONDS (9.7-12.2) 09/29/16 07:20 INR 1.0 09/29/16 07:20 APTT 33 SECONDS (21-34) 09/29/16 07:20 - Constitutional Appears: Non-toxic, No Acute Distress - Head Exam Head Exam: ATRAUMATIC, NORMAL INSPECTION, NORMOCEPHALIC - Eye Exam Eye Exam: Normal appearance - ENT Exam ENT Exam: Mucous Membranes Moist - Neck Exam Neck Exam: Normal Inspection - Respiratory Exam Respiratory Exam: Clear to Ausculation Bilateral, NORMAL BREATHING PATTERN. absent: Respiratory Distress - Cardiovascular Exam Cardiovascular Exam: REGULAR RHYTHM, +S1, +S2 - GI/Abdominal Exam GI & Abdominal Exam: Soft, Normal Bowel Sounds. absent: Distended, Tenderness - Extremities Exam Extremities Exam: absent: Pedal Edema Additional comments: wound dress dry, clean, and intact - Back Exam Back Exam: NORMAL INSPECTION - Neurological Exam Neurological Exam: Alert, Awake, Oriented x3 - Psychiatric Exam Psychiatric exam: Normal Affect, Normal Mood - Skin Skin Exam: Normal Color, Warm Assessment and Plan - Assessment and Plan (Free Text) Assessment: Right Lower extremity wound right foot plantar ulceration with 1st interspace maceration. Podiatry on board- recs appreciated, OR today this late afternoon due to patient 's noncompliance PO intake Foot xray shows no evidence of OM MRI foot unable to be done due to AVR Bone scan done today- cellulitis of RLE w/o obvious osteomyeltitis Continue with IV abx as per ID- zosyn 2.25g IV Q6hrs Hyperkalemia Potassium 5.9 this morning Kayexalate 15gm given Bacteremia Has been afebrile for 48 hours, WBC normal Blood culture positive B-hemolytic strep Dr. Lobo cardiology consulted, help appreciated Pt is s/p AVR for aortic stenosis JOYCELYN negative endocarditis ruled out Continue IV abx as per ID recommendations Continue zosyn 2.25 gm IVPB Q6 hours (started 09/25) - Day #5 HTN- controlled with meds Controlled Norvasc 5mg PO HS DM Novolog 30 U SC TIDAC Lantus 60 U HS glipizide 10mg PO BID Januvia 50mg PO daily ISS hold AM doses of glipizide and januvia for JOYCELYN Neuropathy continue with gabapentin 100mg PO TID s/p renal transplant continue with cellcept, Prograf, sensipar, ergocal and prednisone F/u prograf level Vancomycin discontinued Consult placed to Dr. Duggan CKD stage 3 see above Nephrology on board Monitor Cr Prophylaxis Protonix Heparin 5000 U SC Q12 [facility] 81 mg PO daily
--- NOTE | 2016-09-29 17:18 | CP.PCM.PN ---
Subjective - Date & Time of Evaluation Date of Evaluation: 09/29/16 Time of Evaluation: 16:30 - Subjective Subjective: waiting for OR procedure K high earlier, had medical treatment no chest pain no dyspnea appetite good no headache no rash no fever no arthralgias no insomnia no constipation no visual abnormalities no urinary problems Objective - Vital Signs/Intake and Output Vital Signs (last 24 hours): Temp Pulse Resp BP Pulse Ox 98.1 F 68 18 151/87 H 99 09/29/16 07:25 09/29/16 07:25 09/29/16 07:25 09/29/16 07:25 09/29/16 07:25 - Medications Medications: Current Medications Amlodipine Besylate (Norvasc) 5 mg PO HS [facility] Last Admin: 09/28/16 22:11 Dose: 5 mg Aspirin (Ecotrin) 81 mg PO DAILY [facility] Last Admin: 09/29/16 09:05 Dose: 81 mg Cinacalcet (Sensipar) 30 mg PO DAILY [facility] Last Admin: 09/29/16 09:05 Dose: 30 mg Ergocalciferol (Drisdol 50,000 Intl Units Cap) 1 cap PO QWK [facility] Gabapentin (Neurontin) 100 mg PO TID [facility] Last Admin: 09/29/16 17:05 Dose: Not Given Glipizide (Glucotrol Xl) 10 mg PO BID [facility] Last Admin: 09/29/16 17:05 Dose: Not Given Heparin Sodium (Porcine) (Heparin) 5,000 units SC Q12 [facility] Last Admin: 09/28/16 22:00 Dose: Not Given Piperacillin Sod/Tazobactam Sod (Zosyn 2.25 Gm Iv Premix) 2.25 gm in 50 mls @ 100 mls/hr IVPB Q6H [facility] Last Admin: 09/29/16 16:40 Dose: 100 mls/hr Insulin Aspart (Novolog) 30 unit SC TIDAC [facility] Last Admin: 09/29/16 16:25 Dose: Not Given Insulin Glargine (Lantus) 60 unit SC HS [facility] Last Admin: 09/28/16 22:12 Dose: 60 units Mycophenolate Mofetil (Cellcept) 500 mg PO BID [facility] Last Admin: 09/29/16 17:06 Dose: Not Given Oxycodone/Acetaminophen (Percocet 5/325 Mg Tab) 1 tab PO Q8 PRN PRN Reason: Pain, severe (8-10) Stop: 09/30/16 16:31 Last Admin: 09/27/16 16:27 Dose: 1 tab Pantoprazole Sodium (Protonix Ec Tab) 40 mg PO DAILY [facility] Last Admin: 09/29/16 09:05 Dose: 40 mg Prednisone (Prednisone Tab) 5 mg PO HS [facility] Last Admin: 09/28/16 22:11 Dose: 5 mg Rosuvastatin Calcium (Crestor) 10 mg PO HS [facility] Last Admin: 09/28/16 22:11 Dose: 10 mg Sitagliptin Phosphate (Januvia) 50 mg PO DAILY [facility] Last Admin: 09/29/16 09:05 Dose: 50 mg Tacrolimus (Prograf Cap) 1 mg PO Q12 [facility] Last Admin: 09/29/16 09:05 Dose: 1 mg - Labs Labs: 09/29/16 07:20 09/29/16 14:48 PT 11.2 SECONDS (9.7-12.2) 09/29/16 07:20 INR 1.0 09/29/16 07:20 APTT 33 SECONDS (21-34) 09/29/16 07:20 - Constitutional Appears: Non-toxic - Head Exam Head Exam: ATRAUMATIC - Eye Exam Eye Exam: EOMI - ENT Exam ENT Exam: Mucous Membranes Moist - Neck Exam Neck Exam: Full ROM. absent: Lymphadenopathy - Respiratory Exam Respiratory Exam: NORMAL BREATHING PATTERN. absent: Accessory Muscle Use - Cardiovascular Exam Cardiovascular Exam: REGULAR RHYTHM. absent: Rubs - GI/Abdominal Exam GI & Abdominal Exam: Soft, Normal Bowel Sounds. absent: Tenderness - Extremities Exam Extremities Exam: absent: Pedal Edema - Neurological Exam Neurological Exam: Alert, Awake Assessment and Plan - Assessment and Plan (Free Text) Assessment: renal transplant ckd 3 bone infection, for resection of toe htn diabetes aortic valve disease await or continue ab trend labs high K likely due to FK
[2016-09-29] MEDS ORDERED: Lactated Ringer's 1,000 ML IV ONE (19:30)
[2016-09-29] MEDS ORDERED: Sodium Chloride 0.9% 1,000 ML IV ONE (19:30)
[2016-09-29] MEDS ORDERED: Midazolam 2 MG/2 ML VIAL ONE (19:33)
[2016-09-29] MEDS ORDERED: Propofol 10 mg/ml Inj (20 ML) ONE ×3 (19:33→19:57)
[2016-09-29] MEDS ORDERED: Bupivacaine HCl 0.5% PF (10 ml) Inj ONE (19:35)
[2016-09-29] MEDS ORDERED: Lidocaine 1% Inj (20ml) ONE (19:35)
[2016-09-29] MEDS ORDERED: Phenylephrine 10 mg/ml Inj ONE (20:23)
--- NOTE | 2016-09-29 21:28 | PCM.SURG1 ---
Surgeon's Initial Post Op Note - Surgeon's Notes Surgeon: Dr. Sanchez, DPM Closet Organizer: Dr. Lissette Santos PGY2, Dr. Torres Hoffman PGY1 Type of Anesthesia: IV Sedation, Local Anesthesia Administered By: Dr. Vargas Pre-Operative Diagnosis: Right foot diabetic ulcer with plantarflexed second metatarsal head Operative Findings: See dictation. I- 20 cc 1:1 1% lidocaine plain and 0.5% marcaine plain. M- 3-0 vicryl, 3-0 nylon Post-Operative Diagnosis: same Operation Performed: Resection of right second metatarsal head Specimen/Specimens Removed: right second metatarsal head Estimated Blood Loss: EBL {In ML}: 500 Blood Products Given: N/A Drains Used: No Drains Post-Op Condition: Good Date of Surgery/Procedure: 09/29/16 Time of Surgery/Procedure: 21:28
[2016-09-29 22:04] LABS: MEAN CELL VOLUME 76.9 fL (80.0-94.0); MEAN CORPUSCULAR HEMOGLOBIN 24.3 pg (27.0-31.0); MEAN CORPUSCULAR HGB CONC 31.7 g/dL (33.0-37.0); MEAN PLATELET VOLUME 8.1 fL (7.2-11.7); RBC 4.52 Mil/uL (4.40-5.90); RED CELL DISTRIBUTION WIDTH 18.6 % (11.5-14.5); WHITE BLOOD COUNT 13.1 K/uL (4.8-10.8)
[2016-09-29] MEDS: (Lantus) Insulin Glargine, Recombinant SC SCH (22:35)
[2016-09-29] MEDS: Oxycodone/Acetaminophen 5/325 mg Tab PO PRN (22:36)
[2016-09-30] MEDS: Piperacill/Tazo 2.25gm in Dex 2.25 GM/50 ML BAG IVPB SCH ×4 (05:00→21:48)
[2016-09-30] MEDS: Oxycodone/Acetaminophen 5/325 mg Tab PO PRN (05:10)
[2016-09-30 06:35] LABS: BASO % 0.3 % (0.0-2.0); HEMOGLOBIN 11.1 g/dL (12.0-18.0); LYMPH # 0.4 K/uL (1.0-4.3); LYMPH % 3.3 % (20.0-40.0); MEAN CELL VOLUME 77.4 fL (80.0-94.0); MEAN CORPUSCULAR HEMOGLOBIN 24.5 pg (27.0-31.0); MEAN CORPUSCULAR HGB CONC 31.6 g/dL (33.0-37.0); MEAN PLATELET VOLUME 9.1 fL (7.2-11.7); MONO # 0.2 K/uL (0.0-0.8); MONO % 1.6 % (0.0-10.0); NEUT # 12.8 K/uL (1.8-7.0); NEUT % 94.8 % (50.0-75.0); NRBC % 0.1 % (0.0-2.0); PLATELET COUNT 290 K/uL (130-400); RBC 4.52 Mil/uL (4.40-5.90); RED CELL DISTRIBUTION WIDTH 18.6 % (11.5-14.5); WHITE BLOOD COUNT 13.5 K/uL (4.8-10.8)
[2016-09-30 06:49] LABS: ALBUMIN 3.2 g/dL (3.5-5.0)
[2016-09-30 06:52] LABS: ALB/GLOB RATIO 0.8 (1.0-2.1)
[2016-09-30 06:53] LABS: CALCIUM 8.2 mg/dl (8.6-10.4)
[2016-09-30] MEDS: (Novolog) Insulin Aspart, Recombinant 100 u/ml 10 ml vial SC SCH ×3 (07:58→18:22)
[2016-09-30] MEDS: GlipiZIDE 10 mg SR Tab PO SCH ×2 (09:52→18:23)
[2016-09-30] MEDS: Pantoprazole 40 mg EC Tab PO SCH (09:52)
[2016-09-30 10:09] LABS: LYMPHOCYTE 7 % (20-40); MONOCYTE 1 % (0-10); NEUTROPHIL 92 % (50-75); TOTAL CELLS COUNTED 100
[2016-09-30 10:10] LABS: ANISOCYTOSIS SLIGHT; PLATELET ESTIMATE NORMAL (NORMAL); POIKILOCYTOSIS SLIGHT
[2016-09-30 10:11] LABS: HYPOCHROMIC SLIGHT; LARGE PLATELETS PRESENT; MICROCYTOSIS SLIGHT; OVALOCYTES SLIGHT; TOXIC GRANULATION PRESENT
--- NOTE | 2016-09-30 10:46 | CP.PCM.PN ---
Subjective - Date & Time of Evaluation Date of Evaluation: 09/29/16 Time of Evaluation: 15:30 - Subjective Subjective: Patient seen and evaluated No chest pain and dyspnea Patient s/p TAVR and stbale For foot surgery for cellulitis Objective - Vital Signs/Intake and Output Vital Signs (last 24 hours): Temp Pulse Resp BP Pulse Ox 97.9 F 81 20 126/72 96 09/30/16 07:30 09/30/16 07:30 09/30/16 07:30 09/30/16 07:30 09/30/16 07:30 Intake and Output: 09/30/16 09/30/16 06:59 18:59 Intake Total 290 Balance 290 - Medications Medications: Current Medications Acetaminophen (Tylenol 325mg Tab) 650 mg PO Q6 PRN PRN Reason: Pain, Mild (1-3) Amlodipine Besylate (Norvasc) 5 mg PO HS [facility] Last Admin: 09/29/16 22:36 Dose: 5 mg Aspirin (Ecotrin) 81 mg PO DAILY [facility] Last Admin: 09/30/16 09:52 Dose: 81 mg Cinacalcet (Sensipar) 30 mg PO DAILY [facility] Last Admin: 09/30/16 09:53 Dose: 30 mg Ergocalciferol (Drisdol 50,000 Intl Units Cap) 1 cap PO QWK [facility] Gabapentin (Neurontin) 100 mg PO TID [facility] Last Admin: 09/30/16 09:52 Dose: 100 mg Glipizide (Glucotrol Xl) 10 mg PO BID [facility] Last Admin: 09/30/16 09:52 Dose: 10 mg Heparin Sodium (Porcine) (Heparin) 5,000 units SC Q12 [facility] Last Admin: 09/30/16 10:01 Dose: Not Given Piperacillin Sod/Tazobactam Sod (Zosyn 2.25 Gm Iv Premix) 2.25 gm in 50 mls @ 100 mls/hr IVPB Q6H [facility] Last Admin: 09/30/16 09:52 Dose: 100 mls/hr Insulin Aspart (Novolog) 30 unit SC TIDAC [facility] Last Admin: 09/30/16 07:58 Dose: 30 unit Insulin Glargine (Lantus) 60 unit SC HS [facility] Last Admin: 09/29/16 22:35 Dose: 60 units Mycophenolate Mofetil (Cellcept) 500 mg PO BID [facility] Last Admin: 09/30/16 09:53 Dose: 500 mg Oxycodone/Acetaminophen (Percocet 5/325 Mg Tab) 1 tab PO Q8 PRN PRN Reason: Pain, severe (8-10) Stop: 09/30/16 16:31 Last Admin: 09/30/16 05:10 Dose: 1 tab Pantoprazole Sodium (Protonix Ec Tab) 40 mg PO DAILY [facility] Last Admin: 09/30/16 09:52 Dose: 40 mg Prednisone (Prednisone Tab) 5 mg PO HS [facility] Last Admin: 09/29/16 22:36 Dose: 5 mg Rosuvastatin Calcium (Crestor) 10 mg PO HS [facility] Last Admin: 09/29/16 22:35 Dose: 10 mg Sitagliptin Phosphate (Januvia) 50 mg PO DAILY [facility] Last Admin: 09/30/16 09:52 Dose: 50 mg Tacrolimus (Prograf Cap) 1 mg PO Q12 [facility] Last Admin: 09/30/16 09:53 Dose: 1 mg - Labs Labs: 09/30/16 06:24 09/30/16 06:24 PT 11.2 SECONDS (9.7-12.2) 09/29/16 07:20 INR 1.0 09/29/16 07:20 APTT 33 SECONDS (21-34) 09/29/16 07:20
--- NOTE | 2016-09-30 11:59 | CP.PCM.PN ---
Subjective - Date & Time of Evaluation Date of Evaluation: 09/30/16 Time of Evaluation: 11:56 - Subjective Subjective: Notes reviewed Comfortable in bed S/p right foot metatarsal removal , tolerated well No pain No sob or cough No n/v/d No urinary complaints Appetite good, ready to go to rehab! Objective - Vital Signs/Intake and Output Vital Signs (last 24 hours): Temp Pulse Resp BP Pulse Ox 97.9 F 81 20 126/72 96 09/30/16 07:30 09/30/16 07:30 09/30/16 07:30 09/30/16 07:30 09/30/16 07:30 Intake and Output: 09/30/16 09/30/16 06:59 18:59 Intake Total 290 Balance 290 - Medications Medications: Current Medications Acetaminophen (Tylenol 325mg Tab) 650 mg PO Q6 PRN PRN Reason: Pain, Mild (1-3) Amlodipine Besylate (Norvasc) 5 mg PO HS [facility] Last Admin: 09/29/16 22:36 Dose: 5 mg Aspirin (Ecotrin) 81 mg PO DAILY [facility] Last Admin: 09/30/16 09:52 Dose: 81 mg Cinacalcet (Sensipar) 30 mg PO DAILY [facility] Last Admin: 09/30/16 09:53 Dose: 30 mg Ergocalciferol (Drisdol 50,000 Intl Units Cap) 1 cap PO QWK [facility] Gabapentin (Neurontin) 100 mg PO TID [facility] Last Admin: 09/30/16 09:52 Dose: 100 mg Glipizide (Glucotrol Xl) 10 mg PO BID [facility] Last Admin: 09/30/16 09:52 Dose: 10 mg Heparin Sodium (Porcine) (Heparin) 5,000 units SC Q12 [facility] Last Admin: 09/30/16 10:01 Dose: Not Given Piperacillin Sod/Tazobactam Sod (Zosyn 2.25 Gm Iv Premix) 2.25 gm in 50 mls @ 100 mls/hr IVPB Q6H [facility] Last Admin: 09/30/16 09:52 Dose: 100 mls/hr Insulin Aspart (Novolog) 30 unit SC TIDAC [facility] Last Admin: 09/30/16 07:58 Dose: 30 unit Insulin Glargine (Lantus) 60 unit SC HS [facility] Last Admin: 09/29/16 22:35 Dose: 60 units Mycophenolate Mofetil (Cellcept) 500 mg PO BID [facility] Last Admin: 09/30/16 09:53 Dose: 500 mg Oxycodone/Acetaminophen (Percocet 5/325 Mg Tab) 1 tab PO Q8 PRN PRN Reason: Pain, severe (8-10) Stop: 09/30/16 16:31 Last Admin: 09/30/16 05:10 Dose: 1 tab Pantoprazole Sodium (Protonix Ec Tab) 40 mg PO DAILY [facility] Last Admin: 09/30/16 09:52 Dose: 40 mg Prednisone (Prednisone Tab) 5 mg PO HS [facility] Last Admin: 09/29/16 22:36 Dose: 5 mg Rosuvastatin Calcium (Crestor) 10 mg PO HS [facility] Last Admin: 09/29/16 22:35 Dose: 10 mg Sitagliptin Phosphate (Januvia) 50 mg PO DAILY [facility] Last Admin: 09/30/16 09:52 Dose: 50 mg Tacrolimus (Prograf Cap) 1 mg PO Q12 [facility] Last Admin: 09/30/16 09:53 Dose: 1 mg - Labs Labs: 09/30/16 06:24 09/30/16 06:24 PT 11.2 SECONDS (9.7-12.2) 09/29/16 07:20 INR 1.0 09/29/16 07:20 APTT 33 SECONDS (21-34) 09/29/16 07:20 - Constitutional Appears: Well, Non-toxic - Head Exam Head Exam: ATRAUMATIC, NORMAL INSPECTION - Eye Exam Eye Exam: EOMI, Normal appearance - ENT Exam ENT Exam: Mucous Membranes Moist, Normal Oropharynx - Neck Exam Neck Exam: absent: Lymphadenopathy, Thyromegaly - Respiratory Exam Respiratory Exam: Clear to Ausculation Bilateral. absent: Rhonchi, Wheezes - Cardiovascular Exam Cardiovascular Exam: +S1, +S2. absent: Rubs - GI/Abdominal Exam GI & Abdominal Exam: Soft, Normal Bowel Sounds Additional comments: allograft nontender and not enlarged - Extremities Exam Extremities Exam: absent: Joint Swelling, Pedal Edema Additional comments: clean dressing on right foot - Neurological Exam Neurological Exam: Alert, Awake, Oriented x3 - Skin Skin Exam: Dry, Intact Assessment and Plan - Assessment and Plan (Free Text) Assessment: renal transplant ckd 3 osteomyelitis htn diabetes aortic valve disease Hyperkalemia Renal function stable Maintain immunosuppression Hyperkalemia due to unclontrolled glucose level - 400+ today Suggest endo eval Kayexalate x 1 today
[2016-09-30] MEDS ORDERED: Sod Polystyrene Sulf 15 gm/60 ml Oral Susp PO ONE (12:00)
--- NOTE | 2016-09-30 14:38 | CP.PCM.PN ---
Subjective - Date & Time of Evaluation Date of Evaluation: 09/30/16 Time of Evaluation: 12:35 - Subjective Subjective: Patient is a 56 year old male who is seen at bedside with Dr. Sanchez 1 day s/p right second metatarsal amputation with right plantar forefoot ulceration. Patient states that he feels well today and is in minimal pain. He denies any acute overnight events. Patient denies any further pedal complaints at this time. Patient denies N/V/F/C/CP/SOB. Objective - Vital Signs/Intake and Output Vital Signs (last 24 hours): Temp Pulse Resp BP Pulse Ox 97.9 F 81 20 126/72 96 09/30/16 07:30 09/30/16 07:30 09/30/16 07:30 09/30/16 07:30 09/30/16 07:30 Intake and Output: 09/30/16 09/30/16 06:59 18:59 Intake Total 290 Balance 290 - Medications Medications: Current Medications Acetaminophen (Tylenol 325mg Tab) 650 mg PO Q6 PRN PRN Reason: Pain, Mild (1-3) Amlodipine Besylate (Norvasc) 5 mg PO HS [facility] Last Admin: 09/29/16 22:36 Dose: 5 mg Aspirin (Ecotrin) 81 mg PO DAILY [facility] Last Admin: 09/30/16 09:52 Dose: 81 mg Cinacalcet (Sensipar) 30 mg PO DAILY [facility] Last Admin: 09/30/16 09:53 Dose: 30 mg Ergocalciferol (Drisdol 50,000 Intl Units Cap) 1 cap PO QWK [facility] Gabapentin (Neurontin) 100 mg PO TID [facility] Last Admin: 09/30/16 13:51 Dose: 100 mg Glipizide (Glucotrol Xl) 10 mg PO BID [facility] Last Admin: 09/30/16 09:52 Dose: 10 mg Heparin Sodium (Porcine) (Heparin) 5,000 units SC Q12 [facility] Last Admin: 09/30/16 10:01 Dose: Not Given Piperacillin Sod/Tazobactam Sod (Zosyn 2.25 Gm Iv Premix) 2.25 gm in 50 mls @ 100 mls/hr IVPB Q6H [facility] Last Admin: 09/30/16 09:52 Dose: 100 mls/hr Insulin Aspart (Novolog) 30 unit SC TIDAC [facility] Last Admin: 09/30/16 12:35 Dose: 30 unit Insulin Glargine (Lantus) 60 unit SC HS [facility] Last Admin: 09/29/16 22:35 Dose: 60 units Mycophenolate Mofetil (Cellcept) 500 mg PO BID [facility] Last Admin: 09/30/16 09:53 Dose: 500 mg Oxycodone/Acetaminophen (Percocet 5/325 Mg Tab) 1 tab PO Q8 PRN PRN Reason: Pain, severe (8-10) Stop: 09/30/16 16:31 Last Admin: 09/30/16 05:10 Dose: 1 tab Pantoprazole Sodium (Protonix Ec Tab) 40 mg PO DAILY [facility] Last Admin: 09/30/16 09:52 Dose: 40 mg Prednisone (Prednisone Tab) 5 mg PO HS [facility] Last Admin: 09/29/16 22:36 Dose: 5 mg Rosuvastatin Calcium (Crestor) 10 mg PO [facility] Last Admin: 09/29/16 22:35 Dose: 10 mg Sitagliptin Phosphate (Januvia) 50 mg PO DAILY [facility] Last Admin: 09/30/16 09:52 Dose: 50 mg Tacrolimus (Prograf Cap) 1 mg PO Q12 [facility] Last Admin: 09/30/16 09:53 Dose: 1 mg - Labs Labs: 09/30/16 06:24 09/30/16 06:24 PT 11.2 SECONDS (9.7-12.2) 09/29/16 07:20 INR 1.0 09/29/16 07:20 APTT 33 SECONDS (21-34) 09/29/16 07:20 - Constitutional Appears: Well, Non-toxic, No Acute Distress - Extremities Exam Additional comments: RLE focused exam Vasc: DP pulse 2/4, PT pulse non-palpable due to non-pitting perimalleolar edema. CFT < 3 sec to all digits. Temperature gradient warm to warm from proximal to distal. Derm: An approximately 1.5 cm x 1.5 cm x 0.3 cm ulceration noted sub second metatarsal head of plantar foot. base is fibrotic and rim is hyperkeratotic. No malodor, no fluctuance, no tunneling, no drainage, no undermining noted. No malodor, no drainage, no fluctuance, no undermining, no probe to bone. Surgical site appears well coapted with no signs of dehiscence. No purulence, malodor, erythema or other signs of infection noted to the area Neuro: Protective sensation grossly diminished Ortho: No pain on palpation of right foot in area of ulcerations. Pain on palpation noted to surgical site consistent with surgery. Previous first ray amputation noted - Neurological Exam Neurological Exam: Alert, Awake, Oriented x3 - Psychiatric Exam Psychiatric exam: Normal Affect, Normal Mood Assessment and Plan - Assessment and Plan (Free Text) Assessment: 56 year old male with right plantar ulceration 1 day s/p right second metatarsal head resection. Plan: Patient seen and evaluated at bedside with attending Dr. Sanchez Charts, labs and vitals reviewed Surgical site and ulcer dressed with xeroform, 4x4, ABD, kirlix and OSWALD Patient to continue abx per ID Patient to be D/C to [facility], most likely on Sunday Podiatry will continue to follow while in house
--- NOTE | 2016-09-30 16:24 | RAD ---
Right foot three views History: Status post right foot surgery. Comparison: 09/23/2016 Findings: Status post resection of the 2nd metatarsal head to the mid shaft. Prominent soft tissue swelling with bandaging noted throughout the mid foot at its dorsum. Few ossific densities seen at the surgical site along the lateral margin. Again noted is resection of the 1st digit to the metatarsal base with some productive bone formation. Again identified is patchy osteopenia at the base of the 2nd proximal phalanx. Again identified is postsurgical and/or bony destructive changes at the 3rd metatarsal head with productive bone formation. Again identified is deformity of the 4th metatarsal head. Again identified are prominent deformities and or osteophytosis at the level of the middle and lateral cuneiforms bones and corresponding metatarsal bones. Again identified is productive change at the 5th metatarsal head. Plantar calcaneal spurring. Vascular calcifications. Impression: Postoperative changes.
--- NOTE | 2016-09-30 16:34 | OP ---
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 POSTOPERATIVE DIAGNOSIS: Right foot chronic nonhealing diabetic ulcer with plantar flex second metatarsal head. PROCEDURE: Right foot second metatarsal head resection. SURGEON: Thaddeus Sanchez DPM. INFORMATION TECHNOLOGY MANAGER: Lissette Santos DPM, PGY-2 and Torres Hoffman DPM, PGY-1. TYPE OF ANESTHESIA: IV sedation with local. ANESTHESIA ADMINISTERED BY: Dr. Vargas. INDICATIONS: The patient is a 56-year-old with the above diagnosis. The patient has exhausted all conservative treatment at this time and now requires surgical intervention. The patient signed the consent after careful explanation of risks, benefits, complications, and alternatives for the surgical procedure. No guarantees were given or implied. NPO status confirmed prior to taking the patient to the OR. PREPARATION: The patient was brought into the operating room and placed on the operating room table in the supine position. A time-out was performed for identification of proper patient and procedure. The patient received a total of 20 mL of 1:1 mixture of 1% lidocaine plain and 0.5% Marcaine plain in a local block fashion to the right forefoot. Once local anesthesia was achieved, the right foot was then prepped and draped in a normal sterile manner and the procedure began. DESCRIPTION OF PROCEDURE: Right foot second metatarsal head resection. Attention was directed to the patient's right foot in which with the #15 blade a linear incision was made over the second metatarsal head and shaft straight down to bone. All bleeders were cauterized and ligated as necessary. Next, utilizing periosteal elevator, all periosteal tissue was carefully retracted off the second metatarsal head. At this time, misonix was utilized to resect the second metatarsal head. A sagittal saw was then utilized to resect the second metatarsal head further. All devitalized tissue and bone was then passed with an operative site and sent for pathology. The sagittal saw was then used to smooth down any bony prominences. The surgical site was then irrigated with copious amounts of normal sterile saline. The subcutaneous tissue was then reapproximated with 3-0 Vicryl and the skin was then reapproximated with 3-0 Nylon in a simple suture pattern. The surgical site was then dressed with Xeroform, 4 x 4 gauze, Kerlix, ABDs, and Coban. POSTOPERATIVE CONDITION: The patient tolerated the anesthesia and procedure well and was escorted to the recovery room with vital signs is stable and neurovascular status intact of the right leg. The patient will remain nonweightbearing in the right lower extremity and podiatry will continue to follow up the patient while in-house. Lissette Santos DPM [id number]
[2016-09-30] MEDS: (Lantus) Insulin Glargine, Recombinant SC SCH (21:47)
--- NOTE | 2016-09-30 21:56 | CP.PCM.PN ---
Subjective - Date & Time of Evaluation Date of Evaluation: 09/30/16 Time of Evaluation: 18:10 - Subjective Subjective: Patient seen and evaluated S/P Foot surgery Ambulating No cardiac events Objective - Vital Signs/Intake and Output Vital Signs (last 24 hours): Temp Pulse Resp BP Pulse Ox 98.1 F 109 H 20 149/84 98 09/30/16 15:13 09/30/16 15:13 09/30/16 15:13 09/30/16 15:13 09/30/16 15:13 - Medications Medications: Current Medications Acetaminophen (Tylenol 325mg Tab) 650 mg PO Q6 PRN PRN Reason: Pain, Mild (1-3) Amlodipine Besylate (Norvasc) 5 mg PO HS [facility] Last Admin: 09/29/16 22:36 Dose: 5 mg Aspirin (Ecotrin) 81 mg PO DAILY [facility] Last Admin: 09/30/16 09:52 Dose: 81 mg Cinacalcet (Sensipar) 30 mg PO DAILY [facility] Last Admin: 09/30/16 09:53 Dose: 30 mg Ergocalciferol (Drisdol 50,000 Intl Units Cap) 1 cap PO QWK [facility] Gabapentin (Neurontin) 100 mg PO TID [facility] Last Admin: 09/30/16 18:23 Dose: 100 mg Glipizide (Glucotrol Xl) 10 mg PO BID [facility] Last Admin: 09/30/16 18:23 Dose: 10 mg Heparin Sodium (Porcine) (Heparin) 5,000 units SC Q12 [facility] Last Admin: 09/30/16 21:49 Dose: Not Given Piperacillin Sod/Tazobactam Sod (Zosyn 2.25 Gm Iv Premix) 2.25 gm in 50 mls @ 100 mls/hr IVPB Q6H [facility] Last Admin: 09/30/16 21:48 Dose: 100 mls/hr Insulin Aspart (Novolog) 30 unit SC TIDAC [facility] Last Admin: 09/30/16 18:22 Dose: 30 unit Insulin Glargine (Lantus) 60 unit SC HS [facility] Last Admin: 09/30/16 21:47 Dose: 60 units Mycophenolate Mofetil (Cellcept) 500 mg PO BID [facility] Last Admin: 09/30/16 18:23 Dose: 500 mg Pantoprazole Sodium (Protonix Ec Tab) 40 mg PO DAILY [facility] Last Admin: 09/30/16 09:52 Dose: 40 mg Prednisone (Prednisone Tab) 5 mg PO HS [facility] Last Admin: 09/30/16 21:48 Dose: 5 mg Rosuvastatin Calcium (Crestor) 10 mg PO HS [facility] Last Admin: 09/30/16 21:48 Dose: 10 mg Sitagliptin Phosphate (Januvia) 50 mg PO DAILY [facility] Last Admin: 09/30/16 09:52 Dose: 50 mg Tacrolimus (Prograf Cap) 1 mg PO Q12 [facility] Last Admin: 09/30/16 21:48 Dose: 1 mg - Labs Labs: 09/30/16 06:24 09/30/16 06:24 PT 11.2 SECONDS (9.7-12.2) 09/29/16 07:20 INR 1.0 09/29/16 07:20 APTT 33 SECONDS (21-34) 09/29/16 07:20
[2016-10-01] MEDS: Piperacill/Tazo 2.25gm in Dex 2.25 GM/50 ML BAG IVPB SCH ×2 (04:18→10:31)
[2016-10-01] MEDS: (Novolog) Insulin Aspart, Recombinant 100 u/ml 10 ml vial SC SCH ×3 (08:43→17:30)
--- NOTE | 2016-10-01 09:08 | CARD ---
APPROVED REPORT INDICATION R/O ENDOCARDITIS Mitral Valve E/A ratio0.0 TDI E/Lateral E'0.0E/Medial E'0.0 Reason For Test : Rule out endocarditis. PROCEDURE After obtaining informed consent, patient underwent transesophageal echo in the [employer]. Type of Sedation : Conscious Sedation Sedation was provided by anesthesiologist. Sedation was achieved with intravenously. The JOYCELYN was performed complications. Throughout the procedure, the blood pressure, pulse oximetry, cardiac rhythm, and rate were monitored. The patient tolerated the procedure without adverse effects. Recovery from conscious sedation was uneventful and vital signs were stable. LEFT VENTRICLE The left ventricle is normal size. There is borderline concentric left ventricular hypertrophy. Left ventricle systolic function is low normal. The Ejection Fraction is 45-50%. Transmitral Doppler flow pattern is Grade I-abnormal relaxation pattern. No left ventricle thrombus noted on this study. There is no ventricular septal defect visualized. RIGHT VENTRICLE The right ventricle is normal size. The right ventricular systolic function is normal. ATRIA The left atrium size is normal. The right atrium size is normal. The interatrial septum is intact with no evidence for an atrial septal defect. AORTIC VALVE Patient s/p TAVR No aortic regurgitation is present. There is no aortic valvular stenosis. There is no aortic valvular vegetation. MITRAL VALVE The mitral valve is normal in structure. There is no evidence of mitral valve prolapse. There is no mitral valve stenosis. Mitral regurgitation is mild. TRICUSPID VALVE The tricuspid valve is normal in structure. There is mild tricuspid regurgitation. There is no tricuspid valve prolapse or vegetation. There is no tricuspid valve stenosis. PULMONIC VALVE The pulmonary valve is normal in structure. GREAT VESSELS The aortic root is normal in size. <Conclusion> Left ventricle systolic function is low normal. The Ejection Fraction is 45-50%. The interatrial septum is intact with no evidence for an atrial septal defect. Patient s/p TAVR No aortic regurgitation is present. There is no aortic valvular stenosis. There is no aortic valvular vegetation. The mitral valve is normal in structure. Mitral regurgitation is mild. There is mild tricuspid regurgitation. The aortic root is normal in size. No evidenence of Endocarditis
[2016-10-01] MEDS ORDERED: Ergocalciferol 50,000 Intl Units Cap PO SCH (10:00)
[2016-10-01] MEDS: Pantoprazole 40 mg EC Tab PO SCH (10:31)
[2016-10-01] MEDS: GlipiZIDE 10 mg SR Tab PO SCH ×2 (10:31→17:46)
--- NOTE | 2016-10-01 12:34 | VASCLAB ---
STUDY DESCRIPTION: HISTORY: PVD PRIORS: None. TECHNIQUE: Pulse volume recording waveforms and segmental pressures of bilateral lower extremities at multiple levels were obtained. Ankle Brachial Indices (ABIs) were calculated. Report prepared by BRYCE Kim, RVT RIGHT LOWER EXTREMITY: * Brachial artery: Pressure - 160 mmHg. * High thigh: Pressure - 220 mmHg: Ratio - NC: PVR waveform - Pulsatile * Low thigh: Pressure - 196 mmHg: Ratio - 1.23 PVR waveform: Pulsatile * Calf: Pressure - 220 mmHg: Ratio - NC PVR waveform: Pulsatile * Posterior tibial Artery: Pressure - 220 mmHg: Ratio - NC PVR waveform: Pulsatile * Dorsalis pedis Artery: Pressure - 220 mmHg: Ratio - NC PVR waveform: Pulsatile * Great toe: Pressure - mmHg: Ratio - PVR waveform: Ankle brachial index (BLANCA): NC LEFT LOWER EXTREMITY: * Brachial artery: Pressure - mmHg. * High thigh: Pressure - 220 mmHg: Ratio - NC: PVR waveform - Pulsatile * Low thigh: Pressure - 220 mmHg: Ratio - NC PVR waveform: Pulsatile * Calf: Pressure - 220 mmHg: Ratio - NC PVR waveform: Pulsatile * Posterior tibial Artery: Pressure - 220 mmHg: Ratio - NC PVR waveform: Pulsatile * Dorsalis pedis Artery: Pressure - 220 mmHg: Ratio - NC PVR waveform: Pulsatile * Great toe: Pressure - mmHg: Ratio - PVR waveform: Ankle brachial index (BLANCA): NC OTHER FINDINGS: Right: Left: IMPRESSION: Right: The ankle pressure index of the right lower extremity is non-diagnostic due to possible arterial wall calcifications. Left: The ankle pressure index of the left lower extremity is non-diagnostic due to possible arterial wall calcifications.
--- NOTE | 2016-10-01 14:44 | CP.PCM.PN ---
Subjective - Date & Time of Evaluation Date of Evaluation: 10/01/16 Time of Evaluation: 07:00 - Subjective Subjective: comfortable s/p OR debridement of foot iv rx renewed Objective - Vital Signs/Intake and Output Vital Signs (last 24 hours): Temp Pulse Resp BP Pulse Ox 98 F 68 19 158/78 H 97 10/01/16 08:18 10/01/16 10:30 10/01/16 08:18 10/01/16 10:30 10/01/16 08:18 Intake and Output: 10/01/16 10/01/16 06:59 18:59 Intake Total 470 Balance 470 - Medications Medications: Current Medications Acetaminophen (Tylenol 325mg Tab) 650 mg PO Q6 PRN PRN Reason: Pain, Mild (1-3) Amlodipine Besylate (Norvasc) 5 mg PO HS [facility] Last Admin: 09/30/16 21:49 Dose: 5 mg Aspirin (Ecotrin) 81 mg PO DAILY [facility] Last Admin: 10/01/16 10:31 Dose: 81 mg Cinacalcet (Sensipar) 30 mg PO DAILY [facility] Last Admin: 10/01/16 10:31 Dose: 30 mg Ergocalciferol (Drisdol 50,000 Intl Units Cap) 1 cap PO QWK [facility] Last Admin: 10/01/16 10:41 Dose: 1 cap Gabapentin (Neurontin) 100 mg PO TID [facility] Last Admin: 10/01/16 13:10 Dose: 100 mg Glipizide (Glucotrol Xl) 10 mg PO BID [facility] Last Admin: 10/01/16 10:31 Dose: 10 mg Heparin Sodium (Porcine) (Heparin) 5,000 units SC Q12 [facility] Last Admin: 10/01/16 10:32 Dose: Not Given Insulin Aspart (Novolog) 30 unit SC TIDAC [facility] Last Admin: 10/01/16 13:10 Dose: 30 unit Insulin Glargine (Lantus) 60 unit SC HS [facility] Last Admin: 09/30/16 21:47 Dose: 60 units Mycophenolate Mofetil (Cellcept) 500 mg PO BID [facility] Last Admin: 10/01/16 10:31 Dose: 500 mg Pantoprazole Sodium (Protonix Ec Tab) 40 mg PO DAILY [facility] Last Admin: 10/01/16 10:31 Dose: 40 mg Prednisone (Prednisone Tab) 5 mg PO HS [facility] Last Admin: 09/30/16 21:48 Dose: 5 mg Rosuvastatin Calcium (Crestor) 10 mg PO HS [facility] Last Admin: 09/30/16 21:48 Dose: 10 mg Sitagliptin Phosphate (Januvia) 50 mg PO DAILY [facility] Last Admin: 10/01/16 10:31 Dose: 50 mg Tacrolimus (Prograf Cap) 1 mg PO Q12 [facility] Last Admin: 10/01/16 10:31 Dose: 1 mg - Labs Labs: 09/30/16 06:24 09/30/16 06:24 PT 11.2 SECONDS (9.7-12.2) 09/29/16 07:20 INR 1.0 09/29/16 07:20 APTT 33 SECONDS (21-34) 09/29/16 07:20 - Constitutional Appears: Non-toxic, Chronically Ill - Head Exam Head Exam: NORMOCEPHALIC - Eye Exam Eye Exam: PERRL. absent: Scleral icterus - ENT Exam ENT Exam: Mucous Membranes Dry - Neck Exam Neck Exam: absent: Lymphadenopathy - Respiratory Exam Respiratory Exam: Decreased Breath Sounds - Cardiovascular Exam Cardiovascular Exam: REGULAR RHYTHM - GI/Abdominal Exam GI & Abdominal Exam: Distended, Soft - Rectal Exam Rectal Exam: Deferred - Exam Exam: NORMAL INSPECTION - Extremities Exam Extremities Exam: Pedal Edema, Tenderness. absent: Calf Tenderness - Back Exam Back Exam: absent: CVA tenderness (L), CVA tenderness (R) Assessment and Plan (1) Diabetic foot ulcer Status: Acute (2) Uncontrolled diabetes mellitus Status: Acute (3) Abscess Status: Acute (4) Acute on chronic diastolic CHF (congestive heart failure), NYHA class 3 Status: Acute (5) Acute renal failure Status: Acute (6) CKD (chronic kidney disease) stage 5, GFR less than 15 ml/min Status: Acute (7) Cellulitis and abscess of foot Status: Acute (8) Chronic kidney disease, stage III (moderate) Status: Acute (9) Congestive heart failure Status: Acute (10) Diabetes mellitus type 2 in obese Status: Acute (11) Osteomyelitis Status: Acute (12) Diabetes mellitus Status: Chronic (13) History of kidney transplant Status: Chronic (14) Renal insufficiency Status: Chronic - Assessment and Plan (Free Text) Assessment: antibiotics d/c'd by pharmacy will renew rx
--- NOTE | 2016-10-01 16:08 | CP.PCM.PN ---
Subjective - Date & Time of Evaluation Date of Evaluation: 10/01/16 Time of Evaluation: 12:05 - Subjective Subjective: Patient is a 56 year old male who is seen at bedside 2 days s/p right second metatarsal amputation with right plantar forefoot ulceration. Patient states that he feels well today and is in minimal pain. He denies any acute overnight events. Patient denies any further pedal complaints at this time. Patient denies N/V/F/C/CP/SOB. Objective - Vital Signs/Intake and Output Vital Signs (last 24 hours): Temp Pulse Resp BP Pulse Ox 98 F 68 19 158/78 H 97 10/01/16 08:18 10/01/16 10:30 10/01/16 08:18 10/01/16 10:30 10/01/16 08:18 Intake and Output: 10/01/16 10/01/16 06:59 18:59 Intake Total 470 350 Balance 470 350 - Medications Medications: Current Medications Acetaminophen (Tylenol 325mg Tab) 650 mg PO Q6 PRN PRN Reason: Pain, Mild (1-3) Amlodipine Besylate (Norvasc) 5 mg PO HS [facility] Last Admin: 09/30/16 21:49 Dose: 5 mg Aspirin (Ecotrin) 81 mg PO DAILY [facility] Last Admin: 10/01/16 10:31 Dose: 81 mg Cinacalcet (Sensipar) 30 mg PO DAILY [facility] Last Admin: 10/01/16 10:31 Dose: 30 mg Ergocalciferol (Drisdol 50,000 Intl Units Cap) 1 cap PO QWK [facility] Last Admin: 10/01/16 10:41 Dose: 1 cap Gabapentin (Neurontin) 100 mg PO TID [facility] Last Admin: 10/01/16 13:10 Dose: 100 mg Glipizide (Glucotrol Xl) 10 mg PO BID [facility] Last Admin: 10/01/16 10:31 Dose: 10 mg Heparin Sodium (Porcine) (Heparin) 5,000 units SC Q12 [facility] Last Admin: 10/01/16 10:32 Dose: Not Given Ceftriaxone Sodium 2 gm/ (Sodium Chloride) 100 mls @ 100 mls/hr IVPB Q24H [facility] Insulin Aspart (Novolog) 30 unit SC TIDAC [facility] Last Admin: 10/01/16 13:10 Dose: 30 unit Insulin Glargine (Lantus) 60 unit SC [facility] Last Admin: 09/30/16 21:47 Dose: 60 units Mycophenolate Mofetil (Cellcept) 500 mg PO BID [facility] Last Admin: 10/01/16 10:31 Dose: 500 mg Pantoprazole Sodium (Protonix Ec Tab) 40 mg PO DAILY [facility] Last Admin: 10/01/16 10:31 Dose: 40 mg Prednisone (Prednisone Tab) 5 mg PO [facility] Last Admin: 09/30/16 21:48 Dose: 5 mg Rosuvastatin Calcium (Crestor) 10 mg PO [facility] Last Admin: 09/30/16 21:48 Dose: 10 mg Sitagliptin Phosphate (Januvia) 50 mg PO DAILY [facility] Last Admin: 10/01/16 10:31 Dose: 50 mg Tacrolimus (Prograf Cap) 1 mg PO Q12 [facility] Last Admin: 10/01/16 10:31 Dose: 1 mg - Labs Labs: 09/30/16 06:24 09/30/16 06:24 PT 11.2 SECONDS (9.7-12.2) 09/29/16 07:20 INR 1.0 09/29/16 07:20 APTT 33 SECONDS (21-34) 09/29/16 07:20 - Constitutional Appears: Well, Non-toxic, No Acute Distress - Extremities Exam Additional comments: RLE focused exam Vasc: DP pulse 2/4, PT pulse non-palpable due to non-pitting perimalleolar edema. CFT < 3 sec to all digits. Temperature gradient warm to warm from proximal to distal. Derm: An approximately 1.5 cm x 1.5 cm x 0.3 cm ulceration noted sub second metatarsal head of plantar foot. base is fibrotic and rim is hyperkeratotic. No malodor, no fluctuance, no tunneling, no drainage, no undermining no probe to bone. Surgical site appears well coapted with no signs of dehiscence. No purulence, malodor, erythema or other signs of infection noted to the area Neuro: Protective sensation grossly diminished Ortho: No pain on palpation of right foot in area of ulcerations. Pain on palpation noted to surgical site consistent with surgery. Previous first ray amputation noted - Neurological Exam Neurological Exam: Alert, Awake, Oriented x3 - Psychiatric Exam Psychiatric exam: Normal Affect, Normal Mood Assessment and Plan - Assessment and Plan (Free Text) Assessment: 56 year old male with right plantar ulceration 2 days s/p right second metatarsal head resection. Plan: Patient seen and evaluated at bedside Charts, labs and vitals reviewed Plan discussed with attending Dr. Sanchez Surgical site and ulcer dressed with xeroform, 4x4, ABD, kirlix and OSWALD Patient to continue abx per ID Patient stable from podiatric standpoint Patient scheduled to be D/C to [facility] tomorrow 10/02 Podiatry will continue to follow while in house
[2016-10-01] MEDS: cefTRIAXone 2 GM in Sodium Chloride 0.9% 100 ML IVPB SCH (16:11)
--- NOTE | 2016-10-01 19:19 | PN ---
DATE: 10/01/2016 The patient gets supportive care, followup kidney function, antibiotic Ashia Blake MD
[2016-10-01] MEDS: (Lantus) Insulin Glargine, Recombinant SC SCH (22:28)
[2016-10-02] MEDS: (Novolog) Insulin Aspart, Recombinant 100 u/ml 10 ml vial SC SCH ×3 (08:37→17:21)
[2016-10-02] MEDS: GlipiZIDE 10 mg SR Tab PO SCH ×2 (10:25→17:21)
[2016-10-02] MEDS: Pantoprazole 40 mg EC Tab PO SCH (10:25)
--- NOTE | 2016-10-02 11:56 | CP.PCM.PN ---
Subjective - Date & Time of Evaluation Date of Evaluation: 10/02/16 Time of Evaluation: 11:53 - Subjective Subjective: s/p partial amputation, debridement right foot Last creat stable- 1.7; FK levels acceptable No new n, v, CPs, SOB, HAs, diarrhea Objective - Vital Signs/Intake and Output Vital Signs (last 24 hours): Temp Pulse Resp BP Pulse Ox 98 F 83 17 145/80 100 10/02/16 07:05 10/02/16 11:33 10/02/16 07:05 10/02/16 07:05 10/02/16 11:33 Intake and Output: 10/02/16 10/02/16 06:59 18:59 Intake Total 500 Output Total 300 Balance 200 - Medications Medications: Current Medications Acetaminophen (Tylenol 325mg Tab) 650 mg PO Q6 PRN PRN Reason: Pain, Mild (1-3) Amlodipine Besylate (Norvasc) 5 mg PO HS [facility] Last Admin: 10/01/16 22:28 Dose: 5 mg Aspirin (Ecotrin) 81 mg PO DAILY [facility] Last Admin: 10/02/16 10:29 Dose: 81 mg Cinacalcet (Sensipar) 30 mg PO DAILY [facility] Last Admin: 10/02/16 10:25 Dose: 30 mg Ergocalciferol (Drisdol 50,000 Intl Units Cap) 1 cap PO QWK [facility] Last Admin: 10/01/16 10:41 Dose: 1 cap Gabapentin (Neurontin) 100 mg PO TID [facility] Last Admin: 10/02/16 10:25 Dose: 100 mg Glipizide (Glucotrol Xl) 10 mg PO BID [facility] Last Admin: 10/02/16 10:25 Dose: 10 mg Heparin Sodium (Porcine) (Heparin) 5,000 units SC Q12 [facility] Last Admin: 10/02/16 10:30 Dose: Not Given Ceftriaxone Sodium 2 gm/ (Sodium Chloride) 100 mls @ 100 mls/hr IVPB Q24H [facility] Last Admin: 10/01/16 16:11 Dose: 100 mls/hr Insulin Aspart (Novolog) 30 unit SC TIDAC [facility] Last Admin: 10/02/16 08:37 Dose: 30 unit Insulin Glargine (Lantus) 60 unit SC HS [facility] Last Admin: 10/01/16 22:28 Dose: 60 units Mycophenolate Mofetil (Cellcept) 500 mg PO BID [facility] Last Admin: 10/02/16 10:26 Dose: 500 mg Pantoprazole Sodium (Protonix Ec Tab) 40 mg PO DAILY [facility] Last Admin: 10/02/16 10:25 Dose: 40 mg Prednisone (Prednisone Tab) 5 mg PO HS [facility] Last Admin: 10/01/16 22:28 Dose: 5 mg Rosuvastatin Calcium (Crestor) 10 mg PO HS [facility] Last Admin: 10/01/16 22:28 Dose: 10 mg Sitagliptin Phosphate (Januvia) 50 mg PO DAILY [facility] Last Admin: 10/02/16 10:25 Dose: 50 mg Tacrolimus (Prograf Cap) 1 mg PO Q12 [facility] Last Admin: 10/02/16 10:26 Dose: 1 mg - Labs Labs: 09/30/16 06:24 09/30/16 06:24 PT 11.2 SECONDS (9.7-12.2) 09/29/16 07:20 INR 1.0 09/29/16 07:20 APTT 33 SECONDS (21-34) 09/29/16 07:20 - Constitutional Appears: No Acute Distress, Chronically Ill - Head Exam Head Exam: NORMAL INSPECTION, NORMOCEPHALIC - Eye Exam Eye Exam: EOMI, Normal appearance - Neck Exam Neck Exam: Normal Inspection. absent: Tenderness - Respiratory Exam Respiratory Exam: Clear to Ausculation Bilateral, NORMAL BREATHING PATTERN - Cardiovascular Exam Cardiovascular Exam: REGULAR RHYTHM, +S1 - GI/Abdominal Exam GI & Abdominal Exam: Soft. absent: Tenderness - Extremities Exam Extremities Exam: Pedal Edema. absent: Tenderness - Neurological Exam Neurological Exam: Alert, CN II-XII Intact - Skin Skin Exam: Dry, Warm Assessment and Plan (1) Diabetic foot ulcer Status: Acute (2) Uncontrolled diabetes mellitus Status: Acute (3) Amputation, toe, traumatic Status: Acute (4) Aortic stenosis, residual Status: Acute (5) Chronic kidney disease, stage III (moderate) Status: Acute (6) Kidney replaced by transplant Status: Acute - Assessment and Plan (Free Text) Plan: Continue foot wound care IV ABs Same immunosuppressants Await rehab soon f/u chemistries
--- NOTE | 2016-10-02 14:21 | CP.PCM.PN ---
Subjective - Date & Time of Evaluation Date of Evaluation: 10/02/16 Time of Evaluation: 07:35 - Subjective Subjective: PGY 2 Resident progress note for Dr. Blake: Patient was seen an examined at bedside. No acute events. Pain in minimal and controlled. Patient denies headache, fever, chills, shortness of breath, chest pain, nausea, vomiting or diarrhea. Patient will need 3 weeks of abx. PICC line ordered for today. Objective - Vital Signs/Intake and Output Vital Signs (last 24 hours): Temp Pulse Resp BP Pulse Ox 98 F 83 17 145/80 100 10/02/16 07:05 10/02/16 11:33 10/02/16 07:05 10/02/16 07:05 10/02/16 11:33 Intake and Output: 10/02/16 10/02/16 06:59 18:59 Intake Total 500 Output Total 300 Balance 200 - Medications Medications: Current Medications Acetaminophen (Tylenol 325mg Tab) 650 mg PO Q6 PRN PRN Reason: Pain, Mild (1-3) Amlodipine Besylate (Norvasc) [address] [facility] Last Admin: 10/01/16 22:28 Dose: 5 mg Aspirin (Ecotrin) [address] [facility] Last Admin: 10/02/16 10:29 Dose: 81 mg Cinacalcet (Sensipar) [address] [facility] Last Admin: 10/02/16 10:25 Dose: 30 mg Ergocalciferol (Drisdol 50,000 Intl Units Cap) [address] [facility] Last Admin: 10/01/16 10:41 Dose: 1 cap Gabapentin (Neurontin) [address] [facility] Last Admin: 10/02/16 13:28 Dose: 100 mg Glipizide (Glucotrol Xl) [address] [facility] Last Admin: 10/02/16 10:25 Dose: 10 mg Heparin Sodium (Porcine) (Heparin) 5,[address] [facility] Last Admin: 10/02/16 10:30 Dose: Not Given Ceftriaxone Sodium 2 gm/ (Sodium Chloride) 100 mls @ 100 mls/hr IVPB Q24H [facility] Last Admin: 10/01/16 16:11 Dose: 100 mls/hr Insulin Aspart (Novolog) [address] [facility] Last Admin: 10/02/16 12:49 Dose: 30 unit Insulin Glargine (Lantus) 60 unit SC [facility] Last Admin: 10/01/16 22:28 Dose: 60 units Mycophenolate Mofetil (Cellcept) [address] [facility] Last Admin: 10/02/16 10:26 Dose: 500 mg Pantoprazole Sodium (Protonix Ec Tab) [address] [facility] Last Admin: 10/02/16 10:25 Dose: 40 mg Prednisone (Prednisone Tab) 5 mg PO [facility] Last Admin: 10/01/16 22:28 Dose: 5 mg Rosuvastatin Calcium (Crestor) [address] [facility] Last Admin: 10/01/16 22:28 Dose: 10 mg Sitagliptin Phosphate (Januvia) [address] [facility] Last Admin: 10/02/16 10:25 Dose: 50 mg Tacrolimus (Prograf Cap) [address] [facility] Last Admin: 10/02/16 10:26 Dose: 1 mg - Labs Labs: 09/30/16 06:24 09/30/16 06:24 PT 11.2 SECONDS (9.7-12.2) 09/29/16 07:20 INR 1.0 09/29/16 07:20 APTT 33 SECONDS (21-34) 09/29/16 07:20 - Constitutional Appears: Non-toxic, No Acute Distress - Head Exam Head Exam: ATRAUMATIC, NORMAL INSPECTION - Eye Exam Eye Exam: EOMI, Normal appearance Pupil Exam: NORMAL ACCOMODATION - ENT Exam ENT Exam: Mucous Membranes Moist - Respiratory Exam Respiratory Exam: Clear to Ausculation Bilateral, NORMAL BREATHING PATTERN. absent: Rales, Rhonchi, Wheezes, Respiratory Distress - Cardiovascular Exam Cardiovascular Exam: REGULAR RHYTHM, +S1, +S2 - GI/Abdominal Exam GI & Abdominal Exam: Soft, Normal Bowel Sounds. absent: Distended, Firm, Guarding, Tenderness - Extremities Exam Additional comments: Foot dressinng in tact/clean/dry, ext warm, ROM sensation in tact - Back Exam Back Exam: NORMAL INSPECTION. absent: CVA tenderness (L), CVA tenderness (R), paraspinal tenderness - Neurological Exam Neurological Exam: Alert, Awake, CN II-XII Intact, Oriented x3 - Psychiatric Exam Psychiatric exam: Normal Affect, Normal Mood - Skin Skin Exam: Dry, Intact, Normal Color, Warm Assessment and Plan - Assessment and Plan (Free Text) Assessment: Right Lower extremity wound right foot plantar ulceration with 1st interspace maceration. Podiatry on board - Surgical site and ulcer dressed with xeroform, 4x4, ABD, kirlix and AC, stable from podiatry for DC S/P OR on 09/29 for Resection of right second metatarsal head Foot xray shows no evidence of OM MRI foot unable to be done due to AVR Bone scan done today- cellulitis of RLE w/o obvious osteomyeltitis Continue with IV abx as per ID- zosyn 2.25g IV Q6hrs - discontinued Ceftriazone 2gm IVPB daily - Per ID will need to cintue for 3 more weeks Hyperkalemia Potassium 5.9 this morning Kayexalate 15gm given Bacteremia Resolved repeat bc 09/26 negative Has been afebrile for 48 hours, WBC normal 09/23 Blood culture positive B-hemolytic strep Dr. Lobo cardiology consulted, help appreciated Pt is s/p AVR for aortic stenosis JOYCELYN negative endocarditis ruled out On Cefriaxone HTN- controlled with meds Controlled Norvasc 5mg PO HS DM Novolog 30 U SC TIDAC Lantus 60 U HS glipizide 10mg PO BID Januvia 50mg PO daily [facility] Neuropathy continue with gabapentin 100mg PO TID s/p renal transplant continue with cellcept, Prograf, sensipar, ergocal and prednisone F/u prograf level Vancomycin discontinued Consult placed to Dr. Duggan CKD stage 3 see above Nephrology on board Monitor Cr Prophylaxis Protonix Heparin 5000 U SC Q12 ASA 81 mg PO daily PT eval Dispo: Once patient gets PICC he will be stable for DC to rehab for 3 more weeks of antibiotics per Dr. Mancia.
--- NOTE | 2016-10-02 14:44 | CP.PCM.PN ---
Subjective - Date & Time of Evaluation Date of Evaluation: 10/02/16 Time of Evaluation: 14:40 - Subjective Subjective: 56 year old male seen at bedside resting comfortably 3 days s/p right second metatarsal amputation with right plantar forefoot ulceration. Patient states that he feels well today and is in minimal pain. He denies any acute overnight events. Patient denies any further pedal complaints at this time. He states that today he is going to rehab for continuation of IV abx. Patient denies N/V/F /C/CP/SOB. Objective - Vital Signs/Intake and Output Vital Signs (last 24 hours): Temp Pulse Resp BP Pulse Ox 98 F 83 17 145/80 100 10/02/16 07:05 10/02/16 11:33 10/02/16 07:05 10/02/16 07:05 10/02/16 11:33 Intake and Output: 10/02/16 10/02/16 06:59 18:59 Intake Total 500 Output Total 300 Balance 200 - Medications Medications: Current Medications Acetaminophen (Tylenol 325mg Tab) 650 mg PO Q6 PRN PRN Reason: Pain, Mild (1-3) Amlodipine Besylate (Norvasc) 5 mg PO HS [facility] Last Admin: 10/01/16 22:28 Dose: 5 mg Aspirin (Ecotrin) 81 mg PO DAILY [facility] Last Admin: 10/02/16 10:29 Dose: 81 mg Cinacalcet (Sensipar) 30 mg PO DAILY [facility] Last Admin: 10/02/16 10:25 Dose: 30 mg Ergocalciferol (Drisdol 50,000 Intl Units Cap) 1 cap PO QWK [facility] Last Admin: 10/01/16 10:41 Dose: 1 cap Gabapentin (Neurontin) 100 mg PO TID [facility] Last Admin: 10/02/16 13:28 Dose: 100 mg Glipizide (Glucotrol Xl) 10 mg PO BID [facility] Last Admin: 10/02/16 10:25 Dose: 10 mg Heparin Sodium (Porcine) (Heparin) 5,000 units SC Q12 [facility] Last Admin: 10/02/16 10:30 Dose: Not Given Ceftriaxone Sodium 2 gm/ (Sodium Chloride) 100 mls @ 100 mls/hr IVPB Q24H [facility] Last Admin: 10/01/16 16:11 Dose: 100 mls/hr Insulin Aspart (Novolog) 30 unit SC TIDAC [facility] Last Admin: 10/02/16 12:49 Dose: 30 unit Insulin Glargine (Lantus) 60 unit SC [facility] Last Admin: 10/01/16 22:28 Dose: 60 units Mycophenolate Mofetil (Cellcept) 500 mg PO BID [facility] Last Admin: 10/02/16 10:26 Dose: 500 mg Pantoprazole Sodium (Protonix Ec Tab) 40 mg PO DAILY [facility] Last Admin: 10/02/16 10:25 Dose: 40 mg Prednisone (Prednisone Tab) 5 mg PO [facility] Last Admin: 10/01/16 22:28 Dose: 5 mg Rosuvastatin Calcium (Crestor) 10 mg PO [facility] Last Admin: 10/01/16 22:28 Dose: 10 mg Sitagliptin Phosphate (Januvia) 50 mg PO DAILY [facility] Last Admin: 10/02/16 10:25 Dose: 50 mg Tacrolimus (Prograf Cap) 1 mg PO Q12 [facility] Last Admin: 10/02/16 10:26 Dose: 1 mg - Labs Labs: 09/30/16 06:24 09/30/16 06:24 PT 11.2 SECONDS (9.7-12.2) 09/29/16 07:20 INR 1.0 09/29/16 07:20 APTT 33 SECONDS (21-34) 09/29/16 07:20 - Constitutional Appears: Well, No Acute Distress - Extremities Exam Additional comments: right lower extremity focused exam: Vasc: DP pulse 2/4, PT pulse non-palpable due to non-pitting perimalleolar edema. CFT < 3 sec to all digits. Temperature gradient warm to warm from proximal to distal. Derm: Surgical site to right 2nd metatarsal appears well coapted with no signs of dehiscence. No purulence, malodor, erythema or other signs of infection noted. An approximately 1.5 cm x 1.5 cm x 0.3 cm ulceration noted sub second metatarsal head of plantar foot. base is fibrotic and rim is hyperkeratotic. No malodor, no fluctuance, no tunneling, no drainage, no undermining no probe to bone. Neuro: Protective sensation grossly diminished Ortho: No pain on palpation of right foot in area of ulcerations. Pain on palpation noted to surgical site consistent with surgery. Previous first ray amputation noted - Neurological Exam Neurological Exam: Alert, Awake, Oriented x3 - Psychiatric Exam Psychiatric exam: Normal Affect, Normal Mood Assessment and Plan - Assessment and Plan (Free Text) Assessment: 56 year old male with right plantar ulceration 2 days s/p right second metatarsal head resection. Plan: Patient seen and evaluated at bedside Discussed with attending, Dr. Sanchez Charts, labs and vitals reviewed Surgical site and ulcer dressed with xeroform, 4x4, ABD, kerlix and OSWALD Patient to continue abx per ID Patient stable from podiatric standpoint Patient scheduled to be D/C to [facility] today Patient will follow up with Dr. Sanchez Podiatry will continue to follow while in house
--- NOTE | 2016-10-02 16:50 | RAD ---
HISTORY: verify right PICC COMPARISON: Chest x-ray performed 09/23/16 TECHNIQUE: Chest, one view. FINDINGS: Examination limited by habitus. Right-sided PICC terminates at the expected location of the cavoatrial junction. LUNGS: Right-sided pleural effusion and probable consolidation. No definite pneumothorax. Please note that chest x-ray has limited sensitivity for the detection of pulmonary masses. CARDIOVASCULAR: Heart size is top normal. Ectatic aorta. Atherosclerotic calcifications. Stent. OSSEOUS STRUCTURES: Degenerative changes. VISUALIZED UPPER ABDOMEN: Unremarkable. OTHER FINDINGS: None. IMPRESSION: Right-sided PICC with distal tip terminating at the expected location of the cavoatrial junction. Right-sided pleural effusion and associated consolidation.
[2016-10-02] MEDS: cefTRIAXone 2 GM in Sodium Chloride 0.9% 100 ML IVPB SCH (17:20)
[2016-10-02] MEDS ORDERED: Oxycodone/Acetaminophen 5/325 mg Tab PO PRN (20:39)
[2016-10-02] MEDS: (Lantus) Insulin Glargine, Recombinant SC SCH (21:03)
[2016-10-03] MEDS: (Novolog) Insulin Aspart, Recombinant 100 u/ml 10 ml vial SC SCH ×2 (08:11→12:30)
[2016-10-03 08:41] VITALS: BP 174/88; RESP 18; TEMP 97.9
--- NOTE | 2016-10-03 09:30 | CP.PCM.PN ---
Subjective - Date & Time of Evaluation Date of Evaluation: 10/03/16 Time of Evaluation: 09:30 - Subjective Subjective: 56 year old male seen at bedside resting comfortably 4 days s/p right second metatarsal amputation with right plantar forefoot ulceration. Patient states that he feels well today and is in minimal pain. He denies any acute overnight events. Patient denies any further pedal complaints at this time. He states that he is supposed to be going to [facility] soon pending insurance. Patient denies N/ V/F/C/CP/SOB. Objective - Vital Signs/Intake and Output Vital Signs (last 24 hours): Temp Pulse Resp BP Pulse Ox 97.9 F 83 18 174/88 H 97 10/03/16 07:05 10/03/16 07:05 10/03/16 07:05 10/03/16 07:05 10/03/16 07:05 Intake and Output: 10/03/16 10/03/16 06:59 18:59 Intake Total 580 Output Total 400 Balance 180 - Medications Medications: Current Medications Acetaminophen (Tylenol 325mg Tab) 650 mg PO Q6 PRN PRN Reason: Pain, Mild (1-3) Amlodipine Besylate (Norvasc) 5 mg PO HS [facility] Last Admin: 10/02/16 21:05 Dose: 5 mg Aspirin (Ecotrin) 81 mg PO DAILY [facility] Last Admin: 10/02/16 10:29 Dose: 81 mg Cinacalcet (Sensipar) 30 mg PO DAILY [facility] Last Admin: 10/02/16 10:25 Dose: 30 mg Ergocalciferol (Drisdol 50,000 Intl Units Cap) 1 cap PO QWK [facility] Last Admin: 10/01/16 10:41 Dose: 1 cap Gabapentin (Neurontin) 100 mg PO TID [facility] Last Admin: 10/02/16 17:21 Dose: 100 mg Glipizide (Glucotrol Xl) 10 mg PO BID [facility] Last Admin: 10/02/16 17:21 Dose: 10 mg Heparin Sodium (Porcine) (Heparin) 5,000 units SC Q12 [facility] Last Admin: 10/02/16 21:03 Dose: Not Given Ceftriaxone Sodium 2 gm/ (Sodium Chloride) 100 mls @ 100 mls/hr IVPB Q24H [facility] Last Admin: 10/02/16 17:20 Dose: 100 mls/hr Insulin Aspart (Novolog) 30 unit SC TIDAC [facility] Last Admin: 10/03/16 08:11 Dose: 30 unit Insulin Glargine (Lantus) 60 unit SC HS [facility] Last Admin: 10/02/16 21:03 Dose: 60 units Mycophenolate Mofetil (Cellcept) 500 mg PO BID [facility] Last Admin: 10/02/16 17:21 Dose: 500 mg Oxycodone/Acetaminophen (Percocet 5/325 Mg Tab) 1 tab PO Q4H PRN PRN Reason: Pain, moderate (4-7) Stop: 10/05/16 20:40 Last Admin: 10/02/16 20:58 Dose: 1 tab Pantoprazole Sodium (Protonix Ec Tab) 40 mg PO DAILY [facility] Last Admin: 10/02/16 10:25 Dose: 40 mg Prednisone (Prednisone Tab) 5 mg PO [facility] Last Admin: 10/02/16 21:02 Dose: 5 mg Rosuvastatin Calcium (Crestor) 10 mg PO [facility] Last Admin: 10/02/16 21:03 Dose: 10 mg Sitagliptin Phosphate (Januvia) 50 mg PO DAILY [facility] Last Admin: 10/02/16 10:25 Dose: 50 mg Tacrolimus (Prograf Cap) 1 mg PO Q12 [facility] Last Admin: 10/02/16 21:03 Dose: 1 mg - Labs Labs: 09/30/16 06:24 09/30/16 06:24 PT 11.2 SECONDS (9.7-12.2) 09/29/16 07:20 INR 1.0 09/29/16 07:20 APTT 33 SECONDS (21-34) 09/29/16 07:20 - Constitutional Appears: Well, Non-toxic, No Acute Distress - Extremities Exam Additional comments: Right lower extremity focused exam: Vasc: DP pulse 2/4, PT pulse non-palpable due to non-pitting perimalleolar edema. CFT < 3 sec to all digits. Temperature gradient warm to warm from proximal to distal. Derm: Surgical site to right 2nd metatarsal appears well coapted with no signs of dehiscence. No purulence, malodor, erythema or other signs of infection noted. An approximately 1.4 cm x 1.4 cm x 0.2 cm ulceration noted sub second metatarsal head of plantar foot with fibrotic base and hyperkeratotic rim. No malodor, no fluctuance, no tunneling, no drainage, no undermining no probe to bone. Neuro: Protective sensation grossly diminished Ortho: No pain on palpation of right foot in area of ulcerations. Pain on palpation noted to surgical site consistent with surgery. Previous first ray amputation noted - Neurological Exam Neurological Exam: Alert, Awake, Oriented x3 - Psychiatric Exam Psychiatric exam: Normal Affect, Normal Mood Assessment and Plan - Assessment and Plan (Free Text) Assessment: 56 year old male with right plantar ulceration 4 days s/p right second metatarsal head resection. Plan: Patient seen and evaluated at bedside Discussed with attending, Dr. Sanchez Charts, labs and vitals reviewed Surgical site and ulcer dressed with xeroform, 4x4, ABD, kerlix and OSWALD Patient to continue abx per ID Patient stable from podiatric standpoint Patient scheduled to be D/C to [facility] today Patient will follow up with Dr. Sanchez Podiatry will continue to follow while in house
[2016-10-03] MEDS: GlipiZIDE 10 mg SR Tab PO SCH (10:33)
[2016-10-03] MEDS: Pantoprazole 40 mg EC Tab PO SCH (10:33)
[2016-10-03 12:25] VITALS: PULSE 85; O2SAT 99
--- NOTE | 2016-10-03 12:38 | CP.PCM.PN ---
Subjective - Date & Time of Evaluation Date of Evaluation: 10/03/16 Time of Evaluation: 09:25 - Subjective Subjective: PGY-2 Resident Progress Note for Dr. Blake Patient seen and examined at bedside. No acute events overnight. Patient complains of pain at surgical site, managed well with pain medications. Patient also complains mild discomfort at PICC line site. Denies headache, fever, chills , shortness of breath, chest pain, nausea, vomiting, or diarrhea. Objective - Vital Signs/Intake and Output Vital Signs (last 24 hours): Temp Pulse Resp BP Pulse Ox 97.9 F 85 18 174/88 H 99 10/03/16 07:05 10/03/16 12:17 10/03/16 07:05 10/03/16 07:05 10/03/16 12:17 Intake and Output: 10/03/16 10/03/16 06:59 18:59 Intake Total 580 Output Total 400 Balance 180 - Medications Medications: Current Medications Acetaminophen (Tylenol 325mg Tab) 650 mg PO Q6 PRN PRN Reason: Pain, Mild (1-3) Amlodipine Besylate (Norvasc) 5 mg PO HS [facility] Last Admin: 10/02/16 21:05 Dose: 5 mg Aspirin (Ecotrin) 81 mg PO DAILY [facility] Last Admin: 10/03/16 10:33 Dose: 81 mg Cinacalcet (Sensipar) 30 mg PO DAILY [facility] Last Admin: 10/03/16 10:33 Dose: 30 mg Ergocalciferol (Drisdol 50,000 Intl Units Cap) 1 cap PO QWK [facility] Last Admin: 10/01/16 10:41 Dose: 1 cap Gabapentin (Neurontin) 100 mg PO TID [facility] Last Admin: 10/03/16 10:33 Dose: 100 mg Glipizide (Glucotrol Xl) 10 mg PO BID [facility] Last Admin: 10/03/16 10:33 Dose: 10 mg Heparin Sodium (Porcine) (Heparin) 5,000 units SC Q12 [facility] Last Admin: 10/03/16 10:35 Dose: Not Given Ceftriaxone Sodium 2 gm/ (Sodium Chloride) 100 mls @ 100 mls/hr IVPB Q24H [facility] Last Admin: 10/02/16 17:20 Dose: 100 mls/hr Insulin Aspart (Novolog) 30 unit SC TIDAC [facility] Last Admin: 10/03/16 12:30 Dose: 30 unit Insulin Glargine (Lantus) 60 unit SC [facility] Last Admin: 10/02/16 21:03 Dose: 60 units Mycophenolate Mofetil (Cellcept) 500 mg PO BID [facility] Last Admin: 10/03/16 10:34 Dose: 500 mg Oxycodone/Acetaminophen (Percocet 5/325 Mg Tab) 1 tab PO Q4H PRN PRN Reason: Pain, moderate (4-7) Stop: 10/05/16 20:40 Last Admin: 10/02/16 20:58 Dose: 1 tab Pantoprazole Sodium (Protonix Ec Tab) 40 mg PO DAILY [facility] Last Admin: 10/03/16 10:33 Dose: 40 mg Prednisone (Prednisone Tab) 5 mg PO [facility] Last Admin: 10/02/16 21:02 Dose: 5 mg Rosuvastatin Calcium (Crestor) 10 mg PO [facility] Last Admin: 10/02/16 21:03 Dose: 10 mg Sitagliptin Phosphate (Januvia) 50 mg PO DAILY [facility] Last Admin: 10/03/16 10:33 Dose: 50 mg Tacrolimus (Prograf Cap) 1 mg PO Q12 [facility] Last Admin: 10/03/16 10:34 Dose: 1 mg - Labs Labs: 09/30/16 06:24 09/30/16 06:24 PT 11.2 SECONDS (9.7-12.2) 09/29/16 07:20 INR 1.0 09/29/16 07:20 APTT 33 SECONDS (21-34) 09/29/16 07:20 - Constitutional Appears: Non-toxic, No Acute Distress - Head Exam Head Exam: ATRAUMATIC, NORMAL INSPECTION - Eye Exam Eye Exam: Normal appearance - ENT Exam ENT Exam: Mucous Membranes Moist - Neck Exam Neck Exam: Normal Inspection - Respiratory Exam Respiratory Exam: Clear to Ausculation Bilateral, NORMAL BREATHING PATTERN. absent: Respiratory Distress - Cardiovascular Exam Cardiovascular Exam: REGULAR RHYTHM, +S1, +S2. absent: Murmur - GI/Abdominal Exam GI & Abdominal Exam: Soft, Normal Bowel Sounds. absent: Tenderness - Extremities Exam Extremities Exam: absent: Pedal Edema Additional comments: Wound dressing changed by podiatry. Foot dressinng in clean, dry and intact. No active drainage appreciated. - Neurological Exam Neurological Exam: Alert, Awake, Oriented x3 - Psychiatric Exam Psychiatric exam: Normal Affect, Normal Mood - Skin Skin Exam: Normal Color, Warm Assessment and Plan - Assessment and Plan (Free Text) Assessment: Right Lower extremity wound right foot plantar ulceration with 1st interspace maceration. Podiatry on board - Surgical site and ulcer dressed with xeroform, 4x4, ABD, kirlix and AC, stable from podiatry for DC S/P OR on 09/29 for Resection of right second metatarsal head Foot xray shows no evidence of OM MRI foot unable to be done due to AVR Bone scan done today- cellulitis of RLE w/o obvious osteomyeltitis Ceftriazone 2gm IVPB daily - Per ID will need to cintue for 3 more weeks Bacteremia Resolved repeat bc 09/26 negative Has been afebrile for 48 hours, WBC normal 09/23 Blood culture positive B-hemolytic strep Dr. Lobo cardiology consulted, help appreciated Pt is s/p AVR for aortic stenosis JOYCELYN negative endocarditis ruled out On Cefriaxone HTN- controlled with meds Controlled Norvasc 5mg PO HS DM Novolog 30 U SC TIDAC Lantus 60 U HS glipizide 10mg PO BID Januvia 50mg PO daily ISS Neuropathy continue with gabapentin 100mg PO TID s/p renal transplant continue with cellcept, Prograf, sensipar, ergocal and prednisone F/u prograf level Vancomycin discontinued Consult placed to Dr. Duggan CKD stage 3 see above Nephrology on board Monitor Cr Prophylaxis Protonix Heparin 5000 U SC Q12 [facility] 81 mg PO daily PT eval Dispo: [facility] once transport is ready. Patient will continue receiving antibiotics for 3 more weeks per ID Case discussed with Dr. Blake. All management per Dr. Blake.
--- NOTE | 2016-10-03 14:14 | CP.PCM.PN ---
Subjective - Date & Time of Evaluation Date of Evaluation: 10/03/16 Time of Evaluation: 14:13 - Subjective Subjective: seen and examined feels well no complaints no labs - pt reports blood draw this am? Objective - Vital Signs/Intake and Output Vital Signs (last 24 hours): Temp Pulse Resp BP Pulse Ox 97.9 F 85 18 174/88 H 99 10/03/16 07:05 10/03/16 12:17 10/03/16 07:05 10/03/16 07:05 10/03/16 12:17 Intake and Output: 10/03/16 10/03/16 06:59 18:59 Intake Total 580 Output Total 400 Balance 180 - Medications Medications: Current Medications Acetaminophen (Tylenol 325mg Tab) 650 mg PO Q6 PRN PRN Reason: Pain, Mild (1-3) Amlodipine Besylate (Norvasc) 5 mg PO HS [facility] Last Admin: 10/02/16 21:05 Dose: 5 mg Aspirin (Ecotrin) 81 mg PO DAILY [facility] Last Admin: 10/03/16 10:33 Dose: 81 mg Cinacalcet (Sensipar) 30 mg PO DAILY [facility] Last Admin: 10/03/16 10:33 Dose: 30 mg Ergocalciferol (Drisdol 50,000 Intl Units Cap) 1 cap PO QWK [facility] Last Admin: 10/01/16 10:41 Dose: 1 cap Gabapentin (Neurontin) 100 mg PO TID [facility] Last Admin: 10/03/16 13:30 Dose: 100 mg Glipizide (Glucotrol Xl) 10 mg PO BID [facility] Last Admin: 10/03/16 10:33 Dose: 10 mg Heparin Sodium (Porcine) (Heparin) 5,000 units SC Q12 [facility] Last Admin: 10/03/16 10:35 Dose: Not Given Ceftriaxone Sodium 2 gm/ (Sodium Chloride) 100 mls @ 100 mls/hr IVPB Q24H [facility] Last Admin: 10/02/16 17:20 Dose: 100 mls/hr Insulin Aspart (Novolog) 30 unit SC TIDAC [facility] Last Admin: 10/03/16 12:30 Dose: 30 unit Insulin Glargine (Lantus) 60 unit SC HS [facility] Last Admin: 10/02/16 21:03 Dose: 60 units Mycophenolate Mofetil (Cellcept) 500 mg PO BID [facility] Last Admin: 10/03/16 10:34 Dose: 500 mg Oxycodone/Acetaminophen (Percocet 5/325 Mg Tab) 1 tab PO Q4H PRN PRN Reason: Pain, moderate (4-7) Stop: 10/05/16 20:40 Last Admin: 10/02/16 20:58 Dose: 1 tab Pantoprazole Sodium (Protonix Ec Tab) 40 mg PO DAILY [facility] Last Admin: 10/03/16 10:33 Dose: 40 mg Prednisone (Prednisone Tab) 5 mg PO HS [facility] Last Admin: 10/02/16 21:02 Dose: 5 mg Rosuvastatin Calcium (Crestor) 10 mg PO HS [facility] Last Admin: 10/02/16 21:03 Dose: 10 mg Sitagliptin Phosphate (Januvia) 50 mg PO DAILY [facility] Last Admin: 10/03/16 10:33 Dose: 50 mg Tacrolimus (Prograf Cap) 1 mg PO Q12 [facility] Last Admin: 10/03/16 10:34 Dose: 1 mg - Labs Labs: 09/30/16 06:24 09/30/16 06:24 PT 11.2 SECONDS (9.7-12.2) 09/29/16 07:20 INR 1.0 09/29/16 07:20 APTT 33 SECONDS (21-34) 09/29/16 07:20 - Constitutional Appears: Non-toxic, No Acute Distress - Head Exam Head Exam: NORMAL INSPECTION - Eye Exam Eye Exam: Normal appearance - ENT Exam ENT Exam: Mucous Membranes Moist, Normal Exam - Neck Exam Neck Exam: Normal Inspection - Respiratory Exam Respiratory Exam: Clear to Ausculation Bilateral, NORMAL BREATHING PATTERN - Cardiovascular Exam Cardiovascular Exam: REGULAR RHYTHM, RRR - GI/Abdominal Exam GI & Abdominal Exam: Distended, Soft, Normal Bowel Sounds - Extremities Exam Extremities Exam: Normal Inspection Additional comments: rt foot bandaged Assessment and Plan (1) Diabetic foot ulcer Status: Acute (2) Uncontrolled diabetes mellitus Status: Acute (3) Abscess Status: Acute (4) Acute renal failure Status: Acute (5) Aortic stenosis, residual Status: Acute (6) Chronic kidney disease, stage III (moderate) Status: Acute (7) HTN (hypertension) Status: Acute (8) Kidney replaced by transplant Status: Acute - Assessment and Plan (Free Text) Assessment: maintain immunosuppression stable from renal standpoint follow chems
== END 2016-10-03 16:35 | DRG 987 ==
LOC: C.ER 14:53 → C.9E 17:12 → C.6T 22:02
PROVIDERS: ADMIT Internal Medicine Pulmonary Disease; ATTEND Internal Medicine Pulmonary Disease
PROC: B24BZZ4 Ultrasonography of Heart with Aorta, Transesophageal (ICD-10-PCS; 2016-09-27)
PROC: 0QTN0ZZ Resection of Right Metatarsal, Open Approach (ICD-10-PCS; principal; 2016-09-29 15:30)
DX: E11.621 Type 2 diabetes mellitus with foot ulcer (principal); I50.33 Acute on chronic diastolic (congestive) heart failure; L97.519 Non-pressure chronic ulcer of other part of right foot with unspecified severity; E11.22 Type 2 diabetes mellitus with diabetic chronic kidney disease; N17.9 Acute kidney failure, unspecified; R78.81 Bacteremia; L03.115 Cellulitis of right lower limb; E11.40 Type 2 diabetes mellitus with diabetic neuropathy, unspecified; N18.3 Chronic kidney disease, stage 3 (moderate); E87.5 Hyperkalemia; Z94.0 Kidney transplant status; I13.0 Hypertensive heart and chronic kidney disease with heart failure and stage 1 through stage 4 chronic kidney disease, or unspecified chronic kidney disease; I25.10 Atherosclerotic heart disease of native coronary artery without angina pectoris; E11.628 Type 2 diabetes mellitus with other skin complications; M06.9 Rheumatoid arthritis, unspecified; Z99.2 Dependence on renal dialysis; E11.65 Type 2 diabetes mellitus with hyperglycemia; Z79.4 Long term (current) use of insulin; Z89.411 Acquired absence of right great toe; Z87.891 Personal history of nicotine dependence; E78.00 Pure hypercholesterolemia, unspecified; J44.9 Chronic obstructive pulmonary disease, unspecified; Z93.3 Colostomy status; Z95.2 Presence of prosthetic heart valve; I35.0 Nonrheumatic aortic (valve) stenosis; Z91.14 Patient's other noncompliance with medication regimen